=== PATIENT | female | born 1935 | race Caucasian/White ===

== ENCOUNTER 2020-03-20 10:30 | Emergency (ER) | payer MEDICARE, SELFPAY ==
--- NOTE | ~2020-03-20 | XR_ITS ---
EXAMINATION: [id number] EXAM DATE: 03/20/2020 11:31 INDICATION: Initial encounter following injury, with pain of the right ribs. TECHNIQUE: Frontal projection of the upper right ribs, frontal projection of the lower right ribs, ob lique projection of the right ribs, frontal chest x-ray(s) for interpretation. There is no prior terence dy for comparison. FINDINGS: Evidence of acute right 11th and 10th rib fractures posterolaterally. This finding has been indicated, marked on the examination for review, clinical correlation. There are cholecystectomy cli ps. There is no pneumothorax suspected. Cardiomediastinal silhouette is normal. There is no focal acu te air space disease. IMPRESSION: Acute right 10th, 11th rib fractures. Reviewed, dictated and finalized at location B. 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
--- NOTE | ~2020-03-20 | XR_ITS ---
EXAMINATION: XR hip RT min 2V EXAM DATE: 03/20/2020 11:31 INDICATION: Initial encounter following injury, with pain of the right hip. Fall. TECHNIQUE: Right hip frontal, crosstable lateral and 'frog-leg' projections for interpretation. There is no prior study for comparison. FINDINGS: Smooth right hip femoral head contour, no radiographic evidence of avascular necrosis. The re is mild to moderate primary osteoarthritis. There are no acute fractures or dislocations identifie d. There is no subcutaneous gas. Calcifications in the pelvis are believed to be phleboliths. The re are no radiopaque foreign bodies. IMPRESSION: Mild to moderate right hip osteoarthritis. Reviewed, dictated and finalized at location B. 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
[2020-03-20 10:48] VITALS: BP 145/54; PULSE 81; RESP 16; TEMP 36.7; O2SAT 98
--- NOTE | 2020-03-20 11:09 | ED.GENADULT ---
HPI - General Adult General Chief complaint: Back Pain/Injury Stated complaint: fell lower back pain Time Seen by Provider: 03/20/20 10:55 Source: patient and RN notes reviewed Mode of arrival: ambulatory Limitations: no limitations History of Present Illness HPI narrative: Patient presents today complaining of right posterior hip and right lateral and posterior rib pain. Patient became dizzy due to her vertigo 5 days ago and fell, striking her right ribs. Last night she tripped and fell, striking her hip. She has been ambulatory since both of these falls. Denies any head injuries or loss of consciousness. She currently rates her rib pain 9/10 and rates her hip pain 7/10. Reports history of right femur fracture with surgical repair. She takes meclizine for her vertigo. Her vertigo has not been worse than normal. Denies no recent illness. Patient takes tramadol for chronic pain. MD complaint: Right rib and hip pain. Related Data Home Medications Medication Instructions Recorded Confirmed Calcium + Vitamin D See Rx Instructions .ROUTE .COMPLEX 03/20/20 03/20/20 alprazolam 0.25 mg PO TID PRN 03/20/20 03/20/20 benzonatate 200 mg PO BID 03/20/20 03/20/20 biotin 5,000 mcg SUBLINGUAL DAILY 03/20/20 03/20/20 bupropion HCl [Wellbutrin XL] 150 mg PO QAM 03/20/20 03/20/20 diphenoxylate-atropine [Lomotil] 1 tablet PO TID PRN 03/20/20 03/20/20 duloxetine 60 mg PO DAILY 03/20/20 03/20/20 famotidine 20 mg PO BID 03/20/20 03/20/20 levothyroxine 88 mcg PO DAILY 03/20/20 03/20/20 timolol 1 drp OPHTHALMIC (EYE) BID 03/20/20 03/20/20 tramadol 50 mg PO Q6H PRN 03/20/20 03/20/20 vitamins A,C,P-gmwc-aglwcz 1 cap PO BID 03/20/20 03/20/20 [PreserVision AREDS] Allergies Allergy/AdvReac Type Severity Reaction Status Date / Time diazepam Allergy Verified 02/27/12 19:36 egg Allergy Verified 02/27/12 19:36 indomethacin Allergy Verified 02/27/12 19:36 iodine Allergy Verified 02/27/12 19:36 milk Allergy Verified 02/27/12 19:36 tetracycline Allergy Verified 02/27/12 19:36 CEFTRIAXONE SODIUM Allergy Uncoded 02/27/12 19:36 INDOMETHACIN SODIUM Allergy Uncoded 02/27/12 19:36 TRIHYDRATE PROPOXYPHENE HCL Allergy Uncoded 02/27/12 19:36 SULFUR Allergy topical Uncoded 02/27/12 19:36 TAPE Allergy Uncoded 02/27/12 19:36 Review of Systems Review of Systems: Narrative: CONSTITUTIONAL: Denies body aches, fever, chills, or sweats. EYES: Denies visual changes, redness, or discharge. ENT: Denies rhinorrhea, congestion, sore throat, or otalgia. CARDIOVASCULAR: Denies chest pain, palpitations, or edema. RESPIRATORY: Denies cough or dyspnea. GASTROINTESTINAL: Denies abdominal pain, nausea, vomiting, or diarrhea. GENITOURINARY: Denies dysuria or hematuria. SKIN: Denies rash, itching, or wounds. MUSCULOSKELETAL: Denies back pain, or myalgia. + Right rib and hip pain NEUROLOGIC: Denies headache, numbness, tingling, or weakness. PSYCH: Denies depression or anxiety. [facility] Past Medical History Medical History (Updated 03/20/20 @ 11:54 by Sylvia Wilkes, [facility], ) Femur fracture, right GERD (gastroesophageal reflux disease) Glaucoma Hypothyroidism Vertigo Surgical History Surgical History (Updated 03/20/20 @ 11:16 by Sylvia Wilkes, [facility], ) History of appendectomy History of cholecystectomy Comments At time of signature, I have reviewed and agree with nursing past medical, surgical, social and family history unless otherwise noted. Please see nursing chart for further information. There is no relevant family history pertinent to the presenting complaint Exam Narrative: Exam Narrative: GENERAL: Well-appearing, well-nourished, and in mild to moderate pain distress with movement. HEAD: Normocephalic, atraumatic. EYES: EOMI. No redness or drainage. Conjunctivae normal. ENT: Mucous membranes pink and moist. NECK: Normal AROM. Supple. No lymphadenopathy. CHEST: No respiratory distress. Clear to auscultation. Tendern
== END 2020-03-20 12:10 | disposition home or self-care (01) ==
PROVIDERS: Emergency Provider Nurse Practitioner; PCP Internal Medicine
DX: S22.41XA Multiple fractures of ribs, right side, initial encounter for closed fracture (principal); W19.XXXA Unspecified fall, initial encounter; S70.01XA Contusion of right hip, initial encounter; W01.0XXA Fall on same level from slipping, tripping and stumbling without subsequent striking against object, initial encounter; K21.9 Gastro-esophageal reflux disease without esophagitis; H40.9 Unspecified glaucoma; E03.9 Hypothyroidism, unspecified
CPT/HCPCS: 71101; 73502; 99204; G0463

== ENCOUNTER 2020-11-12 16:40 | Emergency (ER) | payer MEDICARE, SELFPAY ==
--- NOTE | ~2020-11-12 | XR_ITS ---
EXAMINATION: XR tibia fibula LT 2V DATE: 11/12/2020 17:47 INDICATION: Left lower leg swelling. TECHNIQUE: 2 views of left tibia and fibula were obtained. COMPARISON: None. FINDINGS: Bone alignment is normal. No acute fracture. There is mild left knee osteoarthritis. There is heterotopic ossification of distal to lateral malleolus, likely from old injury. IMPRESSION: 1. Mild left knee osteoarthritis. Reviewed, dictated and finalized at location A.
--- NOTE | ~2020-11-12 | XR_ITS ---
EXAMINATION: XR foot LT min 3V DATE: 11/12/2020 17:47 INDICATION: Left foot swelling. TECHNIQUE: 4 views of left foot were obtained. COMPARISON: None. FINDINGS: There is mild hallux valgus. There is mild osteoarthritis of first metatarsophalangeal join t and some the interphalangeal joints and midfoot joints. There are enthesophytes at the posterior an d plantar aspects of calcaneal tuberosity. IMPRESSION: 1. Mild polyarticular osteoarthritis. Reviewed, dictated and finalized at location A.
[2020-11-12 17:05] VITALS: BP 151/63; PULSE 77; RESP 20; TEMP 36.5; O2SAT 97
--- NOTE | 2020-11-12 17:26 | ED.GENADULT ---
HPI - General Adult General Chief complaint: Extremity Injury, Lower Stated complaint: swollen legs Time Seen by Provider: 11/12/20 17:26 Source: patient Mode of arrival: ambulatory Limitations: no limitations History of Present Illness HPI narrative: 85-year-old female patient presents to the [facility] with complaints of left lower extremity swelling and pain. Patient states this has been going on for about anywhere from 3 to 5 days. Patient states that it feels very tight and it feels like rubber bands around her foot and her leg. Patient states she has had a couple falls last couple weeks but denies getting checked out by healthcare provider or getting any x-rays. Patient states that her left foot feels numb. Denies taking thing for pain. Related Data Home Medications Medication Instructions Recorded Confirmed Calcium + Vitamin D See Rx Instructions .ROUTE .COMPLEX 03/20/20 03/20/20 alprazolam 0.25 mg PO TID PRN 03/20/20 03/20/20 benzonatate 200 mg PO BID 03/20/20 03/20/20 biotin 5,000 mcg SUBLINGUAL DAILY 03/20/20 03/20/20 bupropion HCl [Wellbutrin XL] 150 mg PO QAM 03/20/20 03/20/20 diphenoxylate-atropine [Lomotil] 1 tablet PO TID PRN 03/20/20 03/20/20 duloxetine 60 mg PO DAILY 03/20/20 03/20/20 famotidine 20 mg PO BID 03/20/20 03/20/20 levothyroxine 88 mcg PO DAILY 03/20/20 03/20/20 timolol 1 drp OPHTHALMIC (EYE) BID 03/20/20 03/20/20 tramadol 50 mg PO Q6H PRN 03/20/20 03/20/20 vitamins A,C,P-whty-norgim 1 cap PO BID 03/20/20 03/20/20 [PreserVision AREDS] Allergies Allergy/AdvReac Type Severity Reaction Status Date / Time diazepam Allergy Verified 02/27/12 19:36 egg Allergy Verified 02/27/12 19:36 indomethacin Allergy Verified 02/27/12 19:36 iodine Allergy Verified 02/27/12 19:36 milk Allergy Verified 02/27/12 19:36 tetracycline Allergy Verified 02/27/12 19:36 CEFTRIAXONE SODIUM Allergy Uncoded 02/27/12 19:36 INDOMETHACIN SODIUM Allergy Uncoded 02/27/12 19:36 TRIHYDRATE PROPOXYPHENE HCL Allergy Uncoded 02/27/12 19:36 SULFUR Allergy topical Uncoded 02/27/12 19:36 TAPE Allergy Uncoded 02/27/12 19:36 Review of Systems Review of Systems: Narrative: CONSTITUTIONAL: Denies fever, chills, or sweats. EYES: Denies visual changes, redness, or discharge. ENT: Denies rhinorrhea, congestion, sore throat, or otalgia. CARDIOVASCULAR: Denies chest pain, palpitations, or edema. RESPIRATORY: Denies cough or dyspnea. GASTROINTESTINAL: Denies abdominal pain, nausea, vomiting, or diarrhea. GENITOURINARY: Denies dysuria or hematuria. SKIN: Denies rash or itching. MUSCULOSKELETAL: Denies back pain, joint pain, or myalgia. Positive left foot and left lower extremity pain and swelling NEUROLOGIC: Denies headache, numbness, or weakness. PSYCHIATRIC: Denies anxiety or depression. [facility] Past Medical History Medical History Femur fracture, right GERD (gastroesophageal reflux disease) Glaucoma Hypothyroidism Vertigo Surgical History Surgical History History of appendectomy History of cholecystectomy Comments At the time of my signature I agree with nursing past medical history, surgical, social, and family history. There is no relevant family history pertinent to the presenting complaint. Exam Narrative: Exam Narrative: GENERAL: Well-appearing, well-nourished, and in no acute distress. HEAD: Normocephalic, atraumatic. EYES: PERRLA and EOMI. ENT: Nares clear, no rhinorrhea or epistaxis. Mucous membranes moist. NECK: Supple. No lymphadenopathy CHEST: Clear to auscultation. No respiratory distress. HEART: Regular rate and rhythm. No murmur heard. Normal peripheral pulses. ABDOMEN: Soft, nontender, nondistended, normal active bowel sounds. EXTREMITIES: Patient able to bear weight and ambulate. No surface trauma, ecchymosis, erythema, lesions, ulcers or break in skin integrity. The L foot is wit
--- NOTE | 2020-11-12 18:01 | PC.NURSE ---
pt up to xray for leg. became pale and nauseated with dry heaves. pt now admits to multi falls last 2 weeks and weakness and dizzyness. taken to room one and 12 lead done. pt denies CP SOB. Pt states she has been confused lately.
--- NOTE | 2020-11-12 18:08 | ECG_ITS ---
Measurements Intervals [place] Rate: 94 P: 71 AL: 207 QRS: 1 QRSD: 134 T: 125 QT: 376 QTc: 471 Interpretive Statements SINUS RHYTHM BORDERLINE AV CONDUCTION DELAY LEFT BUNDLE BRANCH BLOCK BASELINE ARTIFACT- I, III, AVL ABNORMAL ECG Electronically Signed On 11-13-2020 11:31:05 CDT by Juan Chamberlain D.O.
== END 2020-11-12 18:19 | disposition short-term general hospital (02) ==
PROVIDERS: Emergency Provider Nurse Practitioner Family
DX: R42 Dizziness and giddiness (principal); M79.89 Other specified soft tissue disorders; K21.9 Gastro-esophageal reflux disease without esophagitis; H40.9 Unspecified glaucoma; E03.9 Hypothyroidism, unspecified
CPT/HCPCS: 73590; 73630; 93005; 99215; G0463

== ENCOUNTER 2021-05-21 11:00 | Emergency (ER) | payer MEDICARE, SELFPAY ==
--- NOTE | ~2021-05-21 | XR_ITS ---
EXAMINATION: XR foot RT min 3V DATE: 05/21/2021 12:06 INDICATION: Right foot injury. TECHNIQUE: 4 views of right foot were obtained. COMPARISON: None. FINDINGS: There is moderate hallux valgus. No fracture. There is mild osteoarthritis of first metatar sophalangeal joint and some of the interphalangeal joints. There are enthesophytes at the posterior a nd plantar aspects of calcaneal tuberosity. IMPRESSION: 1. Mild polyarticular osteoarthritis. 2. Moderate hallux valgus. Reviewed, dictated and finalized at location A. 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
[2021-05-21 11:10] VITALS: BP 136/56; PULSE 74; RESP 20; TEMP 36.6; O2SAT 99
--- NOTE | 2021-05-21 11:47 | ED.LOWEXIN ---
HPI - Extremity Injury (Lower) General Chief Complaint: Extremity Injury, Lower Stated Complaint: right calf knot Time Seen by Provider: 05/21/21 11:47 Source: patient and family Mode of arrival: ambulatory Limitations: no limitations History of Present Illness HPI Narrative: patient presents with right foot pain after falling at home. patient states she got up in the night and tripped over th dop pad causing her to injure her right foot. patient denies any other pain or discomfort. no calf pain. slight bruising to lateral side of right foot. no deformity. MD complaint: foot injury and fall Injury: Right: foot Type of Injury: blunt Severity: mild Severity scale (1-10): 1 Related Data Home Medications Medication Instructions Recorded Confirmed Calcium + Vitamin D See Rx Instructions .ROUTE .COMPLEX 03/20/20 05/21/21 alprazolam 0.25 mg PO TID PRN 03/20/20 05/21/21 biotin 5,000 mcg SUBLINGUAL DAILY 03/20/20 05/21/21 bupropion HCl [Wellbutrin XL] 150 mg PO QAM 03/20/20 05/21/21 diphenoxylate-atropine [Lomotil] 1 tablet PO TID PRN 03/20/20 05/21/21 duloxetine 60 mg PO DAILY 03/20/20 05/21/21 famotidine 20 mg PO BID 03/20/20 05/21/21 levothyroxine 88 mcg PO DAILY 03/20/20 05/21/21 timolol 1 drp OPHTHALMIC (EYE) BID 03/20/20 05/21/21 tramadol 50 mg PO Q6H PRN 03/20/20 05/21/21 vitamins A,C,N-qtec-xgnktg 1 cap PO BID 03/20/20 05/21/21 [PreserVision AREDS] Allergies Allergy/AdvReac Type Severity Reaction Status Date / Time diazepam Allergy Unknown Verified 05/21/21 11:32 egg Allergy Unknown Verified 05/21/21 11:32 indomethacin Allergy Unknown Verified 05/21/21 11:32 iodine Allergy Unknown Verified 05/21/21 11:32 milk Allergy Unknown Verified 05/21/21 11:32 tetracycline Allergy Unknown Verified 05/21/21 11:32 CEFTRIAXONE SODIUM Allergy Unknown Uncoded 05/21/21 11:32 INDOMETHACIN SODIUM Allergy Unknown Uncoded 01/03/22 11:32 TRIHYDRATE PROPOXYPHENE HCL Allergy Unknown Uncoded 05/21/21 11:32 SULFUR Allergy topical Uncoded 02/27/12 19:36 TAPE Allergy Unknown Uncoded 05/21/21 11:32 Review of Systems Review of Systems: CONSTITUTIONAL: Denies fever, chills, or sweats. EYES: Denies visual changes, redness, or discharge. ENT: Denies rhinorrhea, congestion, sore throat, or otalgia. CARDIOVASCULAR: Denies chest pain, palpitations, or edema. RESPIRATORY: Denies cough or dyspnea. GASTROINTESTINAL: Denies abdominal pain, nausea, vomiting, or diarrhea. GENITOURINARY: Denies dysuria or hematuria. SKIN: Denies rash or itching. MUSCULOSKELETAL: Denies back pain, joint pain, or myalgia. NEUROLOGIC: Denies headache, numbness, or weakness. PSYCHIATRIC: Denies anxiety or depression. [facility] Past Medical History Medical History Femur fracture, right GERD (gastroesophageal reflux disease) Glaucoma Hypothyroidism Vertigo Surgical History Surgical History History of appendectomy History of cholecystectomy Comments At time of signature, agree with nursing past medical, surgical, social and family history. There is no relevant family history pertinent to the presenting complaint Exam Narrative: GENERAL: Well-appearing, well-nourished, and in no acute distress. HEAD: Normocephalic, atraumatic. EYES: PERRLA and EOMI. ENT: Nares clear, no rhinorrhea or epistaxis. Mucous membranes moist. NECK: Supple. CHEST: Clear to auscultation. No respiratory distress. HEART: Regular rate and rhythm. No murmur heard. Normal peripheral pulses. ABDOMEN: Soft, nontender, nondistended, normal active bowel sounds. EXTREMITIES: Normal range of motion. No edema. ANKLE EXAM lower extremity: RIGHT HIP EXAM - SKIN INTACT. NO BRUISING, REDNESS OR SWELLING. NO INGUINAL MASSES OR LYMPHADENOPATHY. GENERALIZED FEMUR AND HIP TENDERNESS. PATIENT HOLDING HIP IN EXTERNAL ROTATION WITH SLIGHT FLEXION OF KNEE. NO BUTTOCK OR SI JOINT TENDERNESS. ROM L
== END 2021-05-21 12:27 | disposition home or self-care (01) ==
PROVIDERS: Emergency Provider Nurse Practitioner Family; PCP Internal Medicine
DX: S90.31XA Contusion of right foot, initial encounter (principal); W01.0XXA Fall on same level from slipping, tripping and stumbling without subsequent striking against object, initial encounter; K21.9 Gastro-esophageal reflux disease without esophagitis; H40.9 Unspecified glaucoma; E03.9 Hypothyroidism, unspecified
CPT/HCPCS: 73630; 99213; G0463

== ENCOUNTER 2021-06-06 14:51 | Emergency (ER) | payer MEDICARE, SELFPAY ==
[2021-06-06 15:03] VITALS: BP 118/50; PULSE 84; RESP 18; TEMP 36.4; O2SAT 100
--- NOTE | 2021-06-06 15:30 | ED.LOWEXIN ---
HPI - Extremity Injury (Lower) General Chief Complaint: Extremity Injury, Lower Stated Complaint: pain in back of left leg Time Seen by Provider: 06/06/21 15:30 Source: patient and RN notes reviewed Mode of arrival: ambulatory Limitations: no limitations History of Present Illness HPI Narrative: 86-year-old female presents with concern for left lower leg swelling. Reports symptoms for the past 3 days. Does not recall any specific injury. Family reports that she falls frequently. She went to the emergency room last night but left before being seen because of a long wait. Reports pain and tenderness to the posterior calf, denies redness or warmth MD complaint: other Related Data Home Medications Medication Instructions Recorded Confirmed Calcium + Vitamin D See Rx Instructions .ROUTE .COMPLEX 03/20/20 05/21/21 alprazolam 0.25 mg PO TID PRN 03/20/20 05/21/21 biotin 5,000 mcg SUBLINGUAL DAILY 03/20/20 05/21/21 bupropion HCl [Wellbutrin XL] 150 mg PO QAM 03/20/20 05/21/21 diphenoxylate-atropine [Lomotil] 1 tablet PO TID PRN 03/20/20 05/21/21 duloxetine 60 mg PO DAILY 03/20/20 05/21/21 famotidine 20 mg PO BID 03/20/20 05/21/21 levothyroxine 88 mcg PO DAILY 03/20/20 05/21/21 timolol 1 drp OPHTHALMIC (EYE) BID 03/20/20 05/21/21 tramadol 50 mg PO Q6H PRN 03/20/20 05/21/21 vitamins A,C,I-jgdj-gxxudi 1 cap PO BID 03/20/20 05/21/21 [PreserVision AREDS] oxybutynin chloride 06/06/21 06/06/21 Allergies Allergy/AdvReac Type Severity Reaction Status Date / Time diazepam Allergy Unknown Verified 05/21/21 11:32 egg Allergy Unknown Verified 05/21/21 11:32 indomethacin Allergy Unknown Verified 05/21/21 11:32 iodine Allergy Unknown Verified 05/21/21 11:32 milk Allergy Unknown Verified 05/21/21 11:32 tetracycline Allergy Unknown Verified 05/21/21 11:32 Tetracyclines Allergy Unknown Verified 06/06/21 15:43 CEFTRIAXONE SODIUM Allergy Unknown Uncoded 05/21/21 11:32 INDOMETHACIN SODIUM Allergy Unknown Uncoded 05/21/21 11:32 TRIHYDRATE PROPOXYPHENE HCL Allergy Unknown Uncoded 05/21/21 11:32 SULFUR Allergy topical Uncoded 02/27/12 19:36 TAPE Allergy Unknown Uncoded 05/21/21 11:32 Review of Systems Review of Systems: CONSTITUTIONAL: Denies malaise, chills, sweats, or fever. SKIN: Denies rash or itching, open skin, laceration, abrasion, redness, warmth MUSCULOSKELETAL: Reports tenderness and swelling to the left lower leg NEUROLOGIC: Denies numbness, weakness All systems reviewed & are unremarkable except as noted in HPI and below PMFSH Past Medical History Medical History Femur fracture, right GERD (gastroesophageal reflux disease) Glaucoma Hypothyroidism Vertigo Surgical History Surgical History History of appendectomy History of cholecystectomy Comments At time of signature, agree with nursing past medical, surgical, social and family history. There is no relevant family history pertinent to the presenting complaint Exam Narrative: GENERAL: Well-appearing, well-nourished, and in no acute distress. HEAD: Normocephalic, atraumatic. EYES: PERRLA, sclera clear ENT: Nares clear. Mucous membranes moist. NECK: Supple. CHEST: No respiratory distress. Speaks in full sentences. HEART: Regular rate and rhythm. Normal peripheral pulses. EXTREMITIES: Normal range of motion. Normal strength and sensation. Left lower leg edema, with posterior tenderness noted without redness or warmth SKIN: Warm, dry, no visible rash. NEURO: Alert and oriented x3. PSYCH: Normal mood and affect Course Course Emergency Course: Called to facilitate an appointment with patient's primary care doctor, patient will be seen tomorrow morning Patient is aware of diagnosis, understands and agrees to treatment plan. Anticipatory guidance given. Patient agrees to follow-up as directed and is aware of reasons to seek care at the emergency dep
== END 2021-06-06 15:50 | disposition home or self-care (01) ==
PROVIDERS: Emergency Provider Nurse Practitioner; PCP Internal Medicine
DX: M79.89 Other specified soft tissue disorders (principal); K21.9 Gastro-esophageal reflux disease without esophagitis; H40.9 Unspecified glaucoma; E03.9 Hypothyroidism, unspecified
CPT/HCPCS: 99212; G0463

== ENCOUNTER 2022-02-18 10:33 | Emergency (ER) | payer MEDICARE, SELFPAY ==
--- NOTE | ~2022-02-18 | XR_ITS ---
EXAMINATION: XR knee RT min 4V DATE: 02/18/2022 11:40 INDICATION: 2 days of nontraumatic right knee pain and swelling TECHNIQUE: Anteroposterior, 2 oblique and crosstable lateral views of the right knee were obtained COMPARISON: None. FINDINGS: Lateral plate and screw fixation spanning an old healed distal metaphyseal fracture of the right femu r which has healed in near-anatomic alignment. No acute fracture identified. Tricompartmental osteoar thritis at the right knee, multiple moderate severity in the patellofemoral compartment and at least mild in the medial and lateral compartments although severity of joint space narrowing can be underes timated on nonweightbearing imaging. No joint effusion/layering lipohemarthrosis. Diffuse subcutaneou s edema about the visualized mid thigh through the mid calf. IMPRESSION: 1. Old healed internally fixed distal right femoral fracture. No right knee joint effusion or acute o sseous abnormality. 2. 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 3. Nonspecific diffuse subcutaneous edema throughout the visualized distal right thigh and proximal c lesvia. Reviewed, dictated and finalized at location A. IMPRESSION: 1. Old healed internally fixed distal right femoral fracture. No right knee margy nt effusion or acute osseous abnormality. 2. Tricompartmental osteoarthritis, mild to moderate in the patellofemoral comp artment. 3. Nonspecific diffuse subcutaneous edema throughout the visualized distal righ t thigh and proximal calf.
[2022-02-18 10:50] VITALS: BP 153/66; PULSE 90; RESP 20; TEMP 36.3; O2SAT 94
--- NOTE | 2022-02-18 10:59 | ED.SKABFB ---
HPI - Skin/Abscess/Foreign Bdy General Chief complaint: Skin/Abscess/Foreign Body Stated complaint: Skin Sore Time Seen by Provider: 02/18/22 11:06 Source: patient Mode of arrival: ambulatory Limitations: no limitations History of Present Illness HPI narrative: 87 y/o female presented for c/o left lower leg redness and swelling for 2 days, and also right knee pain and swelling. She endorses history of barndy to the right knee, and has been riding a bicycle for physical therapy over the past 2 weeks. She denies redness or bruising to the knee. She endorses redness and mild blistering to the left lower leg. She currently denies fatigue, chest pain, palpitations, shortness of breath, wheezing, nausea, vomiting urinary changes. Denies increase in salty food. Walks with walker. Taking Tramadol and Tylenol for pain. Sits in recliner often. Scheduled for right arm nerve surgery in 3 days. Related Data Home Medications Medication Instructions Recorded Confirmed bupropion HCl 150 mg 24 hr tablet, 150 mg PO QAM 03/20/20 02/18/22 extended release (Wellbutrin XL) duloxetine 60 mg capsule,delayed 60 mg PO DAILY 03/20/20 02/18/22 release sprinkle famotidine 20 mg tablet 20 mg PO BID 03/20/20 02/18/22 levothyroxine 88 mcg tablet 88 mcg PO DAILY 03/20/20 02/18/22 timolol 0.5 % eye drops 1 drp ophthalmic (eye) BID 03/20/20 02/18/22 tramadol 50 mg tablet 50 mg PO Q6H PRN Pain, Mild 03/20/20 02/18/22 oxybutynin chloride 5 mg tablet 5 mg PO DAILY 06/06/21 02/18/22 mirtazapine 15 mg tablet 15 mg PO DAILY 02/18/22 02/18/22 Allergies Allergy/AdvReac Type Severity Reaction Status Date / Time diazepam Allergy Unknown Verified 05/21/21 11:32 egg Allergy Unknown Verified 05/21/21 11:32 iodine Allergy Unknown Verified 05/21/21 11:32 milk Allergy Unknown Verified 05/21/21 11:32 tetracycline Allergy Unknown Verified 05/21/21 11:32 CEFTRIAXONE SODIUM Allergy Unknown Uncoded 05/21/21 11:32 INDOMETHACIN SODIUM Allergy Unknown Uncoded 05/21/21 11:32 TRIHYDRATE PROPOXYPHENE HCL Allergy Unknown Uncoded 05/21/21 11:32 SULFUR Allergy topical Uncoded 02/27/12 19:36 TAPE Allergy Unknown Uncoded 05/21/21 11:32 Review of Systems Review of Systems: CONSTITUTIONAL: Denies fatigue body aches, fever, chills EYES: Denies visual changes ENT: Denies rhinorrhea, congestion CARDIOVASCULAR: Denies chest pain, palpitations; reports LE edema. RESPIRATORY: Denies dyspnea. GASTROINTESTINAL: Denies abdominal pain SKIN: Reports left leg redness, swelling MUSCULOSKELETAL:. Reports right knee pain/swelling, right hand drop NEUROLOGIC: Denies headache, numbness, tingling, or weakness. All systems reviewed & are unremarkable except as noted in HPI and below PMFSH Past Medical History Medical History Femur fracture, right GERD (gastroesophageal reflux disease) Glaucoma Hypothyroidism Vertigo Surgical History Surgical History History of appendectomy History of cholecystectomy Comments At time of signature, I have reviewed and agree with nursing past medical, surgical, social and family history unless otherwise noted. Please see nursing chart for further information. There is no relevant family history pertinent to the presenting complaint Exam Narrative: GENERAL: Well-appearing, in no acute distress. CHEST: Lungs with crackles to bases. Speaks in full sentences. No respiratory distress. HEART: Regular rate and rhythm. Normal and equal peripheral pulses. EXTREMITIES: Left lower leg swelling 1+ skin is shiny and tight, tender with palpation, mild anterior erythema with approx 0.5cm skin abrasion to lateral lower leg; right ankle with trace swelling, tender with palpation, tight, no open areas; BLEs normal strength and sensation; right knee with moderate swelling medially, no redness; limited range of motion at knee. Pulse palpable and eq
== END 2022-02-18 12:08 | disposition home or self-care (01) ==
PROVIDERS: Emergency Provider Nurse Practitioner Family
DX: M25.561 Pain in right knee (principal); M25.461 Effusion, right knee; R22.42 Localized swelling, mass and lump, left lower limb; K21.9 Gastro-esophageal reflux disease without esophagitis; H10.9 Unspecified conjunctivitis; E03.9 Hypothyroidism, unspecified
CPT/HCPCS: 73564; 99213; G0463

== ENCOUNTER 2022-10-19 08:18 | Emergency (ER) | payer MEDICARE, MEDICAID, SELFPAY ==
[2022-10-19 08:25] VITALS: BP 143/78; PULSE 90; RESP 20; TEMP 37.1; O2SAT 90
--- NOTE | 2022-10-19 08:44 | ED.GIBLEED ---
HPI - GI Bleed General Chief complaint: GI Bleed Stated complaint: Change leg dressings/diarrhea Time Seen by Provider: 10/19/22 08:30 Source: patient Mode of arrival: ambulatory Limitations: no limitations History of Present Illness HPI Narrative: 87 y/o patient presented for evaluation of right lower leg wound, and also reports large amount of blood in stool today. Patient has been taking antibiotics for the right lower leg skin infection as prescribed by outside urgent care for about 3 days. States she has had abdominal cramping, nausea and diarrhea since taking antibiotics. She endorses 2 days ago she had an episode of blood in the stool, and again this morning at 0300 stating it was like being on a period. Endorses fatigue and slightly decreased appetite. She denies associated abdominal pain, dizziness, chest pain, shortness of breath or vomiting. 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 Related Data Home Medications Medication Instructions Recorded Confirmed bupropion HCl 150 mg 24 hr tablet, 150 mg PO QAM 03/20/20 10/19/22 extended release (Wellbutrin XL) duloxetine 60 mg capsule,delayed 60 mg PO DAILY 03/20/20 10/19/22 release sprinkle famotidine 20 mg tablet 20 mg PO BID 03/20/20 10/19/22 levothyroxine 88 mcg tablet 88 mcg PO DAILY 03/20/20 10/19/22 timolol 0.5 % eye drops 1 drp ophthalmic (eye) BID 03/20/20 10/19/22 tramadol 50 mg tablet 50 mg PO Q6H PRN Pain, Mild 03/20/20 10/19/22 oxybutynin chloride 5 mg tablet 5 mg PO DAILY 06/06/21 10/19/22 mirtazapine 15 mg tablet 15 mg PO DAILY 02/18/22 10/19/22 Allergies Allergy/AdvReac Type Severity Reaction Status Date / Time diazepam Allergy Unknown Verified 10/19/22 08:38 egg Allergy Unknown Verified 10/19/22 08:38 iodine Allergy Unknown Verified 10/19/22 08:38 milk Allergy Unknown Verified 10/19/22 08:38 tetracycline Allergy Unknown Verified 10/19/22 08:38 CEFTRIAXONE SODIUM Allergy Unknown Uncoded 05/21/21 11:32 INDOMETHACIN SODIUM Allergy Unknown Uncoded 05/21/21 11:32 TRIHYDRATE PROPOXYPHENE HCL Allergy Unknown Uncoded 05/21/21 11:32 SULFUR Allergy topical Uncoded 02/27/12 19:36 TAPE Allergy Unknown Uncoded 05/21/21 11:32 Review of Systems Review of Systems: CONSTITUTIONAL: Denies body aches, fever, chills, or sweats. EYES: Denies visual changes, redness, or discharge. ENT: Denies rhinorrhea, congestion, sore throat, or otalgia. CARDIOVASCULAR: Denies chest pain, palpitations, or edema. RESPIRATORY: Denies cough or dyspnea. GASTROINTESTINAL: Denies abdominal pain, vomiting, reports hematochezia, cramping, nausea, diarrhea. GENITOURINARY: Denies dysuria or hematuria. SKIN: Denies rash, itching, Reports RLL wound, Left forearm skin tear MUSCULOSKELETAL: Denies back pain, joint pain, or myalgia. NEUROLOGIC: Denies headache, numbness, tingling, or weakness. All systems reviewed & are unremarkable except as noted in HPI and below PMFSH Past Medical History Medical History Femur fracture, right GERD (gastroesophageal reflux disease) Glaucoma Hypothyroidism Vertigo Surgical History Surgical History History of appendectomy History of cholecystectomy Comments At time of signature, I have reviewed and agree with nursing past medical, surgical, social and family history unless otherwise noted. Please see nursing chart for further information. There is no relevant family history pertinent to the presenting complaint Exam Narrative: GENERAL: Well-appearing, and in no acute distress. HEAD: Normocephalic, atraumatic. EYES: EOMI. No redness or drainage. Conjunctivae normal. ENT: Mucous membranes pink and moist. No rhinorrhea. CHEST: No respiratory distress. Clear to auscultation. HEART: Regular rate and rhythm. murmur appreciated. Normal peripheral pulses. ABDOMEN: Soft, nontender, nondistende
== END 2022-10-19 09:22 | disposition short-term general hospital (02) ==
PROVIDERS: Emergency Provider Nurse Practitioner Family; PCP Internal Medicine
DX: K92.1 Melena (principal); K21.9 Gastro-esophageal reflux disease without esophagitis; H10.9 Unspecified conjunctivitis; E03.9 Hypothyroidism, unspecified
CPT/HCPCS: 99212; G0463

== ENCOUNTER 2023-03-18 11:56 | Emergency (ER) | payer MEDICARE, MEDICAID, SELFPAY ==
--- NOTE | ~2023-03-18 | XR_ITS ---
XR hand RT min 3V DATE: 03/18/2023 12:33 INDICATION: Fell and twisted right hand on door handle TECHNIQUE: 4 views of right hand COMPARISON: None FINDINGS: Diffuse osteopenia. There is degenerative change at the triscaphe and first carpometacarpal and multiple metacarpophalang eal and interphalangeal joints consistent with osteoarthritis. No erosive change is noted. There is an extra-articular fracture at the junction of the base and shaft of the first metacarpal vicki ne with mild anterolateral displacement. No other fracture or dislocation, periosteal reaction or bone destruction is detected otherwise. IMPRESSION: First metacarpal fracture Osteopenia Polyarticular osteoarthritis Reviewed, dictated and finalized at location L.
[2023-03-18 12:10] VITALS: BP 121/102; PULSE 69; RESP 20; TEMP 36.6; O2SAT 95
--- NOTE | 2023-03-18 12:11 | ED.UPPEXIN ---
HPI - Extremity Injury (Upper) General Chief Complaint: Extremity Injury, Upper Stated Complaint: right hand injury from fall Source: patient and RN notes reviewed History of Present Illness HPI narrative: 88 yo F presents to urgent care with complaints of right hand pain, bruising, and swelling. Pt states last night, she was letting her dog out and she had her right hand on the door handle while opening the door. Pt states she lost her balance and fell with her right hand still in the handle. Pt reports associated numbness and tingling to her right fingers. Pt states she landed on her left side onto carpet and denies any other injury. Pt states she crawled on the floor to the phone and called her children who came over immediately and helped her up. Pt denies any head injury, LOC, neck pain, back pain, chest pain, SOB, abdominal pain, vomiting, or other complaints. Pt takes Tylenol ES at home. Related Data Home Medications Medication Instructions Recorded Confirmed bupropion HCl 150 mg 24 hr tablet, 150 mg PO QAM 03/20/20 03/18/23 extended release (Wellbutrin XL) duloxetine 60 mg capsule,delayed 60 mg PO DAILY 03/20/20 03/18/23 release sprinkle famotidine 20 mg tablet 20 mg PO BID 03/20/20 03/18/23 levothyroxine 88 mcg tablet 88 mcg PO DAILY 03/20/20 03/18/23 timolol 0.5 % eye drops 1 drp ophthalmic (eye) BID 03/20/20 03/18/23 tramadol 50 mg tablet 50 mg PO Q6H PRN Pain, Mild 03/20/20 03/18/23 oxybutynin chloride 5 mg tablet 5 mg PO DAILY 06/06/21 03/18/23 mirtazapine 15 mg tablet 15 mg PO DAILY 02/18/22 03/18/23 mirabegron 25 mg tablet,extended 25 mg PO DIRECTED 03/18/23 03/18/23 release 24 hr (Myrbetriq) Allergies Allergy/AdvReac Type Severity Reaction Status Date / Time diazepam Allergy Unknown Verified 03/18/23 12:17 egg Allergy Unknown Verified 03/18/23 12:17 iodine Allergy Unknown Verified 03/18/23 12:17 milk Allergy Unknown Verified 03/18/23 12:17 tetracycline Allergy Unknown Verified 03/18/23 12:17 CEFTRIAXONE SODIUM Allergy Unknown Uncoded 05/21/21 11:32 INDOMETHACIN SODIUM Allergy Unknown Uncoded 05/21/21 11:32 TRIHYDRATE PROPOXYPHENE HCL Allergy Unknown Uncoded 05/21/21 11:32 SULFUR Allergy topical Uncoded 02/27/12 19:36 TAPE Allergy Unknown Uncoded 05/21/21 11:32 Review of Systems Review of Systems: CONSTITUTIONAL: Denies fever, chills, or sweats. EYES: Denies visual changes, redness, or discharge. ENT: Denies otalgia and sore throat CARDIOVASCULAR: Denies chest pain, palpitations, or edema. RESPIRATORY: Denies cough or dyspnea. GASTROINTESTINAL: Denies abdominal pain, nausea, vomiting, or diarrhea. GENITOURINARY: Denies dysuria or hematuria. SKIN: Denies rash or itching. MUSCULOSKELETAL: Right hand pain NEUROLOGIC: Denies headache, numbness, or weakness. Pertinent positives per HPI. [facility] Past Medical History Medical History Femur fracture, right GERD (gastroesophageal reflux disease) Glaucoma Hypothyroidism Vertigo Surgical History Surgical History History of appendectomy History of cholecystectomy Comments At the time of my signature, I reviewed and agree with the nursing past medical, surgical, social, and family history. There is no relevant family history pertinent to the patient complaint. Exam Narrative: GENERAL: This is a well-nourished, well-developed patient, in no apparent distress. HEAD: normocephalic, atraumatic. EYES: Sclera clear/white. Vision is grossly intact. EARS: External ears normal, auditory canals clear and without drainage. Hearing grossly intact. NOSE: External nose normal with no obvious nasal discharge, nares without redness, no rhinorrhea. THROAT: Mucous membranes moist, posterior pharynx clear. NECK: Neck supple, non-tender without lymphadenopathy, masses or thyromegaly. CARDIOVASCULAR: Regular rate and rhythm with
[2023-03-18 12:20] VITALS: BP 121/102; PULSE 69; RESP 20; TEMP 36.6; O2SAT 95
== END 2023-03-18 13:10 | disposition home or self-care (01) ==
PROVIDERS: Emergency Provider Nurse Practitioner Family; PCP Internal Medicine
DX: S62.231A Other displaced fracture of base of first metacarpal bone, right hand, initial encounter for closed fracture (principal); W19.XXXA Unspecified fall, initial encounter; K21.9 Gastro-esophageal reflux disease without esophagitis; H40.9 Unspecified glaucoma; E03.9 Hypothyroidism, unspecified
CPT/HCPCS: 29125; 73130; 99214; A4565; G0463

== ENCOUNTER 2023-09-25 17:34 | Emergency (ER) | payer MEDICARE, MEDICAID, SELFPAY ==
--- NOTE | ~2023-09-25 | XR_ITS ---
EXAMINATION: XR humerus RT DATE: 09/25/2023 18:17 INDICATION: Right humeral pain post fall TECHNIQUE: Internal and externally rotated views of the right humerus were obtained. COMPARISON: None. FINDINGS: Bone alignment is normal. No acute fracture. Old healed fracture at the anterior right 10th rib. Mild polyarticular osteoarthritis at the right elbow, glenohumeral and acromioclavicular joints. Soft tis sues are unremarkable. Right lung is clear. IMPRESSION: 1. 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 No acute osseous abnormality. Reviewed, dictated and finalized at location A. IMPRESSION: 1. 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 No acute osseous abnorm ality.
--- NOTE | 2023-09-25 17:41 | ED.SKABFB ---
HPI - Skin/Abscess/Foreign Bdy General Chief complaint: Fall Stated complaint: Right forearm skin tear Time Seen by Provider: 09/25/23 17:35 Source: patient Mode of arrival: ambulatory Limitations: no limitations History of Present Illness HPI narrative: Patient is an 88-year-old female who presents with right upper arm skin tear and pain after fall on Friday. Patient was seen by aviation maintenance technician and dressing applied. Patient still has full range of motion in arm. Patient has been applying bacitracin ointment. Patient declines hitting head on fall. Tetanus shot is up-to-date Related Data Home Medications Medication Instructions Recorded Confirmed bupropion HCl 150 mg 24 hr tablet, 150 mg PO QAM 03/20/20 09/25/23 extended release (Wellbutrin XL) duloxetine 60 mg capsule,delayed 60 mg PO DAILY 03/20/20 09/25/23 release sprinkle famotidine 20 mg tablet 20 mg PO BID 03/20/20 09/25/23 levothyroxine 88 mcg tablet 88 mcg PO DAILY 03/20/20 09/25/23 timolol 0.5 % eye drops 1 drp ophthalmic (eye) BID 03/20/20 03/18/23 oxybutynin chloride 5 mg tablet 5 mg PO DAILY 06/06/21 03/18/23 mirtazapine 15 mg tablet 15 mg PO DAILY 02/18/22 09/25/23 mirabegron 25 mg tablet,extended 25 mg PO DIRECTED 03/18/23 09/25/23 release 24 hr (Myrbetriq) carvedilol 6.25 mg tablet 6.25 mg PO BID 09/25/23 09/25/23 furosemide 20 mg tablet 20 mg PO DAILY 09/25/23 09/25/23 losartan 25 mg tablet 25 mg PO DAILY 09/25/23 09/25/23 Allergies Allergy/AdvReac Type Severity Reaction Status Date / Time diazepam Allergy Unknown Verified 09/25/23 17:40 egg Allergy Unknown Verified 09/25/23 17:40 iodine Allergy Unknown Verified 09/25/23 17:40 milk Allergy Unknown Verified 09/25/23 17:40 Sulfa (Sulfonamide Allergy Rash Verified 09/25/23 17:41 Antibiotics) tetracycline Allergy Unknown Verified 09/25/23 17:40 CEFTRIAXONE SODIUM Allergy Unknown Uncoded 05/21/21 11:32 INDOMETHACIN SODIUM Allergy Unknown Uncoded 05/21/21 11:32 TRIHYDRATE PROPOXYPHENE HCL Allergy Unknown Uncoded 05/21/21 11:32 TAPE Allergy Unknown Uncoded 05/21/21 11:32 Review of Systems Review of Systems: All systems reviewed & are unremarkable except as noted in HPI and below Constitutional: Constitutional: Denies body ache(s), Denies chills, Denies fatigue, Denies fever(s), Denies headache(s), Denies malaise and Denies weakness Eyes: Eyes: Denies blurry vision, Denies irritation and Denies loss of vision ENT: Denies otalgia, Denies headache(s), Denies nasal discharge, Denies sinus pain and Denies sore throat Cardiovascular: Cardiovascular: Denies chest pain, Denies irregular heart rhythm and Denies dyspnea Respiratory: Respiratory: Denies dyspnea Gastrointestinal: Gastrointestinal: Denies abdominal pain, Denies melena, Denies hematochezia, Denies diarrhea, Denies nausea and Denies vomiting Musculoskeletal: Musculoskeletal: Denies back pain, Denies myalgias and Denies arthralgias Integumentary/Breasts: Skin/Breast: Denies pruritus, Denies rash and Reports wounds Neurologic: Denies headache(s), Denies loss of vision and Denies weakness Psychiatric: Psychiatric: Reports no additional psychiatric complaints Endocrine: Endocrine: Denies fatigue PMFSH Past Medical History Medical History Chronic pain Femur fracture, right GERD (gastroesophageal reflux disease) Glaucoma Hypothyroidism Vertigo Surgical History Surgical History History of appendectomy History of cholecystectomy Comments At time of signature, agree with nursing past medical, surgical, social and family history. There is no relevant family history pertinent to the presenting complaint. Exam Const: General: cooperative, healthy appearing, comfortable, no acute distress and well nourished Nutritional Appearance: well nourished Orientation/consciousness: patient oriented x3 Limitations: no li
[2023-09-25 17:44] VITALS: BP 128/45; PULSE 80; RESP 20; TEMP 36.4; O2SAT 95
[2023-09-25 18:06] VITALS: BP 128/45; PULSE 80; RESP 20; TEMP 36.4; O2SAT 95
== END 2023-09-25 18:40 | disposition home or self-care (01) ==
PROVIDERS: Emergency Provider Nurse Practitioner Family; PCP Internal Medicine
DX: S41.111A Laceration without foreign body of right upper arm, initial encounter (principal); M79.621 Pain in right upper arm; W19.XXXA Unspecified fall, initial encounter; K21.9 Gastro-esophageal reflux disease without esophagitis; E03.9 Hypothyroidism, unspecified
CPT/HCPCS: 73060; 99213; G0463

== ENCOUNTER 2024-01-21 14:23 | Outpatient (CLI) | payer MEDICARE, SELFPAY ==
--- NOTE | ~2024-01-21 | XR_ITS ---
EXAMINATION: XR ankle RT min 3V DATE: 01/21/2024 15:02 INDICATION: Right ankle fracture and pain. TECHNIQUE: 4 views of right ankle were obtained. COMPARISON: Right foot radiographs 05/21/2021 FINDINGS: There is a transverse fracture of medial malleolus in near-anatomic alignment with internal fixation with 2 screws. There is a fracture of posterior malleolus with 1 mm step-off at the articul ar surface with fixation with 1 screw. There is plate and screw fixation of distal fibula. 3 syndesmo tic screws are noted. There is an intramedullary brandy in the tibia. Joint spaces are normal. There are enthesophytes at the posterior and plantar aspects of calcaneal tuberosity. Ankle soft tissue swelli ng is noted. IMPRESSION: 1. Ankle fractures status post open reduction internal fixation. Reviewed, dictated and finalized at location A.
== END 2024-01-21 14:24 | disposition home or self-care (01) ==
LOC: CHSLAB 14:28 → CHSIMG 14:47
PROVIDERS: PCP Family Medicine; Visit Provider Family Medicine
DX: S82.841D Displaced bimalleolar fracture of right lower leg, subsequent encounter for closed fracture with routine healing (principal); Z98.890 Other specified postprocedural states
CPT/HCPCS: 73610

== ENCOUNTER 2024-07-03 10:04 | Outpatient (CLI) | payer MEDICARE, SELFPAY ==
--- NOTE | ~2024-07-03 | XR_ITS ---
HISTORY: Fall, Lt. knee pain COMPARISON: None TECHNIQUE: 3 views of the left knee were performed FINDINGS: Diffuse bony demineralization is identified. Cortical irregularity is identified within the proximal fibula for which a possible acute/subacute fr acture is present. Significant medial and lateral tibiofemoral joint space narrowing is identified. A moderate suprapatellar joint effusion is identified. The infrapatellar joint space is clear. IMPRESSION: Diffuse bony demineralization with cortical irregularity within the proximal fibula for which an acut e/subacute fracture is suspected. Moderate suprapatellar joint effusion. Further evaluation with a noncontrast enhanced CT examination of the left knee may be performed, if t he patient is clinically able. Reviewed, dictated and finalized at location A. LANE REFUELER IMPRESSION: Diffuse bony demineralization with cortical irregularity within the proximal fi bula for which an acute/subacute fracture is suspected. Moderate suprapatellar joint effusion. Further evaluation with a noncontrast enhanced CT examination of the left knee may be performed, if the patient is clinically able.
--- OUTSIDE RECORDS SUMMARY | 2024-07-03 10:07 | XMS_ITS | Encounter Summary ---
Author Organization [facility] Address [address] [place] [address] Phone Care Team Providers Care Commercial Or Institutional Cleaner Name Role Phone Lane Ontiveros MD Primary Care Provider Stanley Llamas PRICING SUPERVISOR Unavailable Unavailabl Micheline Merino MANAGER [employer] Unavailable Unavailabl e Maryam Pena Unavailable [phone] Kelly Huber RN Unavailable [phone] Lissy RochaW Unavailable [phone] Lissy RochaW Unavailable [phone] Lane Ontiveros MD Primary Care Provider Encounter Details Date Type Department Care Team (Late st Contact Info) Description 08/25/2017 Orders Only [facility] ProviderErica MD [address] [place] [id number] Social History Tobacco Use Types Packs/Day Years Used Date Smoking Tobacco: Former Smokeless Tobacco: Never Comments:Smoking History Pac ks/day: 0.5 Packs Alcohol Use Standard Drinks/Week Comments No 0 (1 standard drink = 0.6 oz pur e alcohol) Comments Unknown Sex and Gender Information Value Date Recorded Sex Assigned at Not on file Legal Sex 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 us Historical Provider LAB BLOOD ORDERABLES Lauren l Result documented in this encounter Visit Diagnoses Not on filedocumented in this encounter Additional Health Concerns Infection Onset Date Last Indicated Resolved Time COVID19 01/28/2022 01/28/2022 02/07/2022 3:05 AM CDT COVID: Recovered Comment:Added based on recent COVID infection. 02/07/2022 02/07/2022 06/07/2022 3:[address] COVID: Suspected 12/01/2023 12/01/2023 12/01/2023 10:16 AM CDT documented as of this encounter Care Teams Commercial Or Institutional Cleaner Relationship Specialty Start Date End Date Lane Ontiveros MD PCP - General 08/16/16 04/30/22 Lane Ontiveros MD [address] [place] [address] [address] [place] [id number] PCP - General Internal Medicine 05/01/22 Stanley Llamas LCSW Supervisor [employer] 07/10/18 07/12/18 Micheline Salomon LPN Care Manager 07/14/18 09/13/18 Maryam Pena [address] [place] [address] [address] [place] [address] ACO Care Color Worker 04/26/19 04/26/19 Kelly Huber RN [address] [place] [address] [address] [place] [address] Horse Trekking Guide 11/14/20 01/15/21 Lissy Rocha, PRICING SUPERVISOR [address] [place] [address] [place] [address] Supervisor [employer] 07/30/21 09/09/21 Lissy Rocha, PRICING SUPERVISOR [address] [place] [address] [place] [address] Supervisor [employer] 10/26/21 11/19/21 documented as of this encounter
--- OUTSIDE RECORDS SUMMARY | 2024-07-03 10:08 | XMS_ITS | Encounter Summary ---
Author Organization [facility] Address [address] [place] [address] Phone Care Team Providers Care Yield Clerk Name Role Phone Shweta Jimenez MD Primary Care Provider Encounter Details Date Type Department Care Team (Late st Contact Info) Description 04/17/2023 Nursing [facility] [address] [place] [phone] Audelia Kovacs MD [address] [place] [address] Social History Tobacco Use Types Packs/Day Years Used Date Smoking Tobacco: Never Assessed Comments Unknown Sex and Gender Information Value Date Recorded Sex Assigned at Not on file Legal Sex Female 5:27 PM CDT Gender Identity Not on file Sexual Orientation Not on file documented as of this encounter H&P Notes * Mazin Escamilla - 04/17/2023 11:23 AM CST [facility] Assisted History and Physical Chief Complaint: Fall, low back pain, lumbar compression fx HPI: Maria Ines Jacobs is a 88 y.o. female who has transferred to [facility] for post-acutecare and rehabilitation. Prior to coming to rehabilitation facility patient was hospitalized at [facility] from 04/11/2023 through 04/15/2023 for fall and lumbar compression fracture which was treated conservatively. At the time of this assessment, the patient did not have any complaints and stated that she wanted to go home where her dog is. She reports some localized lumbar tenderness which she says improves with the lidocaine patches and reports that she had a large bowel movement earlier. History obtained from: patient, medical records Review of Prior External Notes: [facility] records Allergies: is allergic to sulfasalazine, iodine, and lactose intolerance (gi). Past Medical History: Depression, anxiety, hypothyroidism, GERD, overactive bladder, glaucoma Surgical History: Appendectomy, cataract extraction, cholecystectomy, right femur fracture surgery,tonsillectomy, laparotomy, right tibia fracture surgery Social History: Denies use of tobacco, alcohol, and illicit drugs. Former smoker. Has children. Hasdog. Lives alone. Physical Exam: Vital Signs: All vitals were reviewed in the facility EMR and are stable. Exam: General: Well developed, well nourished, in no distress, sitting in wheelchair, elderly Skin: Normal appearance, poor turgor, no rashes, stasis dermatitis BLE HEENT: Normocephalic, atraumatic, no flaring, hard of hearing, full dentures, dry mucosa Eyes: nonicteric, intact extra occular movement, PERRL Neck: normal, supple, no lymphadenopathy Heart: regular rate and rhythm, S1, S2 normal, no murmur, click, rub or gallop Lungs: clear to ausculation, normal respirations, normal precautions Abdominal: soft, non-tender; bowel sounds normal; no masses, no organomegaly : external genitalia normal in appearance Extremities: no deformities, joint mobility appears intact, no clubbing, right wrist casted Neuro: Non-focal, CN intact, sensory and motor intact Psychological: alert and oriented X3, appropriate mood and affect, Intact judgement and memory Data Review: Lab Results: 04/14/2023 upon discharge from hospital, CBC with hemoglobin 11.0, WBC of 12.3 otherwise unremarkable. On 04/11 her CMP had albumin of 3.3 and was otherwise unremarkable. Imaging: No new imaging. Orders: No new orders Assessment/Plan: 1. Falls, generalized weakness and decreased mobilization. The patient is to receive PT and OT at the SNF to improve strength, balance, and mobility back to baseline. 2. New L2 compression fracture, chronic L3 compression fx. Continue pain management with prn medications and lidocaine patches. PT/OT should also help. No surgical intervention recommended. 3. Right 1st metatarsal fracture. Cast is in place on RUE. Patient has ortho follow-up on 05/07/2023. 4. Dehydration. Poor skin turgor and dry mucosa noted during physical exam. Increased oral hydration has been encouraged. 5. Constipation. Well-controlled. The patient will continue 17 g Miralax daily. 6. GERD. No acute symptoms. Continue H2 fran therapy with famotidine. 7. Depression and Anxiety. The patient's mood currently appears stable and no reported psychological distress at this time. Continue management with duloxetine, bupropion, and prn Xanax. 8. Hypothyroidism. Well-controlled. Continue levothyroxine. Check TSH levels periodically. 9. Overactive bladder. Continue Mirabegron. 10. Glaucoma. Continue eyedrops. 11. Anemia. Mild with Hgb stable at 11.0. Monitor CBC periodically and advise transfusion if Hgb drops below 7.0. VTE Prophylaxis: Mobilization Fall Care Plan Review: Patient has been educated on fall precautions and will be closely monitored. Pressure Ulcer Prevention Plan: Mobilization. Disposition and escalation or reduction of care: The patient is to receive post- acute care and complete PT and OT at the SNF to improve strength, balance, and mobility back to baseline with the goal of discharging to home where she lives alone. Advance Care Planning: Aggregate [id number] time, greater than 16 minutes was spent discussing end-of-life care planning with patient/family and/or Power of Instructional Material Director. Discussed CPR, Intubation, treatment goals, and Quality of life/Intensity of care. Patient desires CPR-Full Treatment Polst Form Completed. Mazin Masters, acting as a scribe, am personally taking down the notes in the presence of Dr. Audelia Kovacs M.D. Take no action on this note until reviewed and authenticated by the physician. By: MAZIN ESCAMILLA, 04/17/2023 Primary Care Physician: SHWETA JIMENEZ MD I evaluated and examined the patient in presence of scribe Mazin Escamilla and reviewed the medical records and the notes above and agree with the content and details of the notes. By: Audelia Kovacs M.D.. Cosigned by Audelia Kovacs MD at 07/01/2023 10:42 AM WEBBING WEAVER ING WEAVER ING WEAVER documented in this encounter Plan of Treatment Not on file documented as of this encounter Visit Diagnoses Not on filedocumented in this encounter Care Teams Yield Clerk Relationship Specialty Start Date End Date Shweta Jimenez MD [address] [facility] [address] [address] PCP - General Internal Medicine 10/08/18 documented as of this encounter
--- OUTSIDE RECORDS SUMMARY | 2024-07-03 10:08 | XMS_ITS ---
Author Organization [facility] Address Unknown Allergies, Adverse Reactions, Alerts Substance Reaction Status Noted Date Resolved Date Toradol active 04/15/2023 Tetracycline active 04/15/2023 Sulfa Antibiotics active 04/15/2023 Propoxyphene active 04/15/2023 Iodine I 131 Tositumomab active 04/15/2023 Indomethacin active 04/15/2023 diazePAM active 04/15/2023 Citalopram active 04/15/2023 cefTRIAXone active 04/15/2023 adhesive tape - silicones active 04/15/2023 Medications Medication Dose Frequency Directions Start Date End Timothy e Mirtazapine Tablet 15 MG 1 {tbl} Give 1 tablet by piero th at bedtime related to DEPRESSION, UNSPECIFIED (F32.A) 04/16/2023 DULoxetine HCl Capsule Delayed Release Particles 60 MG 1 {Capsule} 24 h Give 1 capsule by mouth one time a day for depression related to DEPRESSION, UNSPECIFIED (F32.A) 04/16/2023 Polyethylene Glycol 3350 Oral Powder 17 GM/SCOOP 17 24 h Give 17 gram by mout h one time a day for constipation 04/16/2023 Famotidine Tablet 20 MG 1 {tbl} 12 h Give 1 tablet by piero th two times a day for acid indigestion 04/16/2023 Synthroid Oral Tablet 88 MCG 1 {tbl} 24 h Give 1 tablet by piero th one time a day for hypothyroidism 04/16/2023 Ocuvite-Lutein Oral Tablet 1 {tbl} 24 h Give 1 tablet by piero th one time a day for supplement 04/16/2023 Albuterol Sulfate HFA Inhalation Aerosol Solution 108 (90 Base) MCG/ACT 2 2 puff inhale orally every 4 hours as needed for SOB/wheezing 04/15/2023 BuPROPion HCl ER (XL) Tablet Extended Release 24 Hour 150 MG 1 {tbl} 24 h Give 1 tablet by piero th one time a day for depression related to DEPRESSION, UNSPECIFIED (F32.A) 04/16/2023 Benzonatate Oral Capsule 100 MG 1 {Capsule} 12 h Give 1 capsule by mouth two times a day for cough 04/16/2023 Myrbetriq Oral Tablet Extended Release 24 Hour 25 MG 1 {tbl} 24 h Give 1 tablet by piero th one time a day for overactive bladder 04/16/2023 Citroma Solution 1.745 GM/30ML 296 mL Give 296 ml by mouth as needed for constipation In AM if no results after enema. If no results within 1 hour of completion of bowel protocol, contact MD immediately for further orders. 04/15/2023 Timoptic Ocudose Ophthalmic Solution 0.5 % 1 [drp] 12 h Instill 1 drop in vicki th eyes two times a day for glaucoma 04/16/2023 Fleet Enema 1 Insert 1 applic ation rectally as needed for for constipation If no results 1 day after suppository. 04/15/2023 Bisacodyl Suppository 10 MG 1 Insert 1 suppository rectally as needed for for constipation daily if no results for MOM 04/15/2023 Milk of Magnesia Suspension 400 MG/5ML 30 mL Give 30 ml by mout h as needed for Constipation at bedtime if not BM in 3 days 04/15/2023 Percocet Oral Tablet 5-325 MG 1 {tbl} Give 1 tablet by piero th every 6 hours as needed for pain 04/16/2023 ALPRAZolam Oral Tablet 0.25 MG 1 {tbl} Give 1 tablet by piero th every 4 hours as needed for anxiety 04/16/2023 Acetaminophen Tablet 650 MG 1 {tbl} Give 1 tablet by piero th every 4 hours as needed for General Discomfort - NTE 3000 mg daily Non-Pharm Interventions-1=music, aromatherapy, light touch/massage2=Reminis cence,reality orientation, validation therapy3=exercise, activities4=1:1 interaction, pet therapy5=Reduced stimulation, quiet area 04/22/2023 Medications Administered Medication Dose Frequency Status Start Date End Date Mirtazapine Tablet 15 MG 1 {tbl} 04/27 DULoxetine HCl Capsule Delay ed Release Particles 60 MG 1 {Capsule} 24 h 04/24/2023 Polyethylene Glycol 3350 Ora l Powder 17 GM/SCOOP 17 24 h 04/24/2023 Famotidine Tablet 20 MG 1 {tbl} 12 h 2022 Synthroid Oral Tablet 88 MCG 1 {tbl} 24 h 1 06/28/2022 Ocuvite-Lutein Oral Tablet 1 {tbl} 24 h 11/2022 Albuterol Sulfate HFA Inhala tion Aerosol Solution 108 (90 Base) MCG/ACT 2 04/15/2023 BuPROPion HCl ER (XL) Tablet Extended Release 24 Hour 150 MG 1 {tbl} 24 h Benzonatate Oral Capsule 100 MG 1 {Capsule} 12 h 04/27/2023 Myrbetriq Oral Tablet Extend ed Release 24 Hour 25 MG 1 {tbl} 24 h 04/24/2023 Citroma Solution 1.745 GM/30ML 296 mL 04/15/2023 Timoptic Ocudose Ophthalmic Solution 0.5 % 1 [drp] 12 h 04/27/2023 Fleet Enema 1 04/15/2023 Bisacodyl Suppository 10 MG 1 Milk of Magnesia Suspension 400 MG/5ML 30 mL 04/15/2023 Percocet Oral Tablet 5-325 MG 1 {tbl} 04/20/2023 ALPRAZolam Oral Tablet 0.25 MG 1 {tbl} 04/16/2023 Acetaminophen Tablet 650 MG 1 {tbl} Problems Problem Status Start Date End Date STABLE BURST FRACTURE OF SEC OND LUMBAR VERTEBRA, SUBSEQUENT ENCOUNTER FOR FRACTURE WITH ROUTINE HEALING (Primary) (S32.021D - ICD-10-CM) ACTIVE 04/15/2023 STABLE BURST FRACTURE OF THI RD LUMBAR VERTEBRA, SUBSEQUENT ENCOUNTER FOR FRACTURE WITH ROUTINE HEALING (S32.031D - ICD-10-CM) ACTIVE 04/15/2023 UNSPECIFIED FRACTURE OF STER NUM, SUBSEQUENT ENCOUNTER FOR FRACTURE WITH ROUTINE HEALING (S22.20XD - ICD-10-CM) ACTIVE 023 UNSPECIFIED ASTHMA, UNCOMPLICATED (J45.909 - ICD-10-CM ) ACTIVE 04/15/2023 OTHER OSTEOPOROSIS WITHOUT C URRENT PATHOLOGICAL FRACTURE (M81.8 - ICD-10-CM) ACTIVE 04/15/2023 UNSPECIFIED OSTEOARTHRITIS, UNSPECIFIED SITE (M19.90 - ICD-10-CM) ACTIVE 04/15/2023 CHRONIC DIASTOLIC (CONGESTIV E) HEART FAILURE (I50.32 - ICD-10-CM) ACTIVE 04/15/2023 CONSTIPATION, UNSPECIFIED (K59.00 - ICD-10-CM) ACTIVE 04/15/2023 ANXIETY DISORDER, UNSPECIFIED (F41.9 - ICD-10-CM) ACTI VE 04/15/2023 ESSENTIAL (PRIMARY) HYPERTENSION (I10 - ICD-10-CM) ACT MARY LOU 04/15/2023 HYPOTHYROIDISM, UNSPECIFIED (E03.9 - ICD-10-CM) ACTIVE 04/15/2023 GASTRO-ESOPHAGEAL REFLUX DIS EASE WITHOUT ESOPHAGITIS (K21.9 - ICD-10-CM) ACTIVE 04/15/2023 NEED FOR ASSISTANCE WITH PERSONAL CARE (Z74.1 - ICD-10 -CM) ACTIVE 04/15/2023 DIFFICULTY IN WALKING, NOT E LSEWHERE CLASSIFIED (R26.2 - ICD-10-CM) ACTIVE 04/15/2023 OVERACTIVE BLADDER (N32.81 - ICD-10-CM) ACTIVE 1 06/15/2022 DEPRESSION, UNSPECIFIED (F32.A - ICD-10-CM) ACTIVE 04/15/2023 Encounters Encounter Performer Performer Role Encounter Diagnoses Location Date Discharge - Discharged / Transferred to SNF - Other - [facility] 04/15/2023 04:57 pm EST - 04/18/2023 01:01 am EST Advance Directives Directive Description Verification Advance Directive:Full Code Cardiopulmonary Resu scitation Immunizations Vaccine Date TB 1 Step Mantoux (PPD) 04/16/2023 01:00 am EST Social History
--- OUTSIDE RECORDS SUMMARY | 2024-07-03 10:08 | XMS_ITS | Encounter Summary ---
Author Organization [facility] Address [address] [place] [address] Phone Care Team Providers Care Cutter Machine Name Role Phone Lane Ontiveros MD Primary Care Provider Encounter Details Date Type Department Care Team (Late st Contact Info) Description 05/08/2023 Nursing Facility [facility] [address] [place] [phone] Sancho Sampson, PAC [address] [place] [id number] Social History Tobacco Use Types Packs/Day Years Used Date Smoking Tobacco: Never Assessed Comments Unknown Sex and Gender Information Value Date Recorded Sex Assigned at Not on file Legal Sex Female 5:27 PM CDT Gender Identity Not on file Sexual Orientation Not on file documented as of this encounter Progress Notes * Sancho Sampson, TOOTIE - 05/08/2023 2:06 PM CST [facility] PROGRESS NOTE Maria Ines Donovans is a 88 y.o. female at [facility] for rehabilitation. Prior to coming to rehabilitation facility patient was hospitalized at [facility] from04/11/2023 through 04/15/2023 for lumbar compression fracture which was treated conservatively. Subjective: Interval History: I am seeing patient for a skilled visit. She is sitting comfortably in her chair. Says that she is feeling ???fine?? . Her back is ???sore?? but improving. Saw ortho yesterday who removed the cast. Ended up testing positive for COVID-19 last week during routine testing. Fortunately she never developed any symptoms. Having some right knee pain intermittently which is a chronic issue for her and she has known osteoarthritis. Therapy says she is improving but still fairly weak and needs assistance with transfers. Hopefully another cast has been removed she will have more improvement. Nursing staff with no concerns about the patient. Review of Systems: A 14 point comprehensive review of systems was negative except what is documented in interval history above. Objective: Exam: Vital Signs: Recent vital signs were reviewed in the electronic medical records at nursing facility and are unremarkable. General: Well developed, well nourished, in no distress Skin: Normal appearance, normal turgor, no rashes HEENT: Normocephalic, atraumatic, no flaring Eyes: nonicteric, intact extra occular movement, PERRL Neck: normal, supple, no lymphadenopathy Heart: regular rate and rhythm, S1, S2 normal, no murmur, click, rub or gallop Lungs: clear to ausculation, normal respirations with no accessory muscle use, normal rate Abdominal: soft, non-tender; bowel sounds normal; no masses, no organomegaly Extremities: no deformities, joint mobility appears intact, no clubbing Neuro: Non-focal, CN intact, sensory and motor intact Psychological: alert and oriented X3, appropriate mood and affect, Intact judgement and memory Lab Results: 04/14/2023 upon discharge from hospital, CBC with hemoglobin 11.0, WBC of 12.3 otherwise unremarkable. On 04/11 her CMP had albumin of 3.3 and was otherwise unremarkable. Imaging: None Assessment/Plan: Generalized weakness and deconditioning Receiving fpc care and physical therapy rehabilitation 05/08/2023 improving Lumbar compression fracture Conservative management with p.r.n. pain medications and therapy Right 1st metatarsal fracture Had ortho follow-up on 05/07/2023 - cast removed that point Constipation Continue daily MiraLax and Colace Right knee osteoarthritis 05/08: Four-week course of Voltaren gel ordered GERD Continue Pepcid Well controlled Other chronic medical conditions include depression, anxiety, hypothyroidism, overactive bladder, glaucoma Stable Continue home regimen VTE Prophylaxis: ] Activity I discussed advanced care planning with this patient. This note was dictated using [employer] fluency dictation system and there may be errors in line repairer. Despite proof reading the note, there may be mistakes and I apologize for those. By: TOOTIE Vaughn, 05/08/2023 2:06 PM VP CARE MANAGEMENT CARE MANAGEMENT documented in this encounter Plan of Treatment Not on file documented as of this encounter Visit Diagnoses Not on filedocumented in this encounter Care Teams Cutter Machine Relationship Specialty Start Date End Date Lane Ontiveros MD 2 [facility] [address] [address] PCP - General Internal Medicine 10/08/18 documented as of this encounter
--- OUTSIDE RECORDS SUMMARY | 2024-07-03 10:08 | XMS_ITS | Clinical Summary ---
Author Organization [facility] Address [address] [place] [address] Care Team Providers Care Cable Installation Technician Name Role Phone Shweta Ontiveros MD Primary Care Provider Allergies Active Allergy Reactions Criticality Noted Date Comments Adhesive Tape-Silicones Rash Medium 07/09/2018 Ceftriaxone Rash Medium 07/09/23 - Approved to give cefepime with ceftriaxone allergy per Ave Colunga DO/Ronni Garcia, PharmD Tolerating cephalexin 07/18/23 Citalopram Rash Medium 07/09/2018 Diazepam Dizziness Low Egg Other (See comments) Low 07/09/2018 Rash Indomethacin Itching Low Iodine Rash Medium Propoxyphene Mental status changes Low Reaction: confusion, Sulfa (Sulfonamide Antibiotics) Hives Medium Tetracycline Hives Reaction: hives, Ketorolac Other (See comments) Low 07/10/2018 Tightness in throat but goes away when drinks fluids Medications albuterol HFA (PROVENTIL HFA,VENTOLIN HFA,PROAIR HFA) 90 mcg/actuation inhaler INHALE TWO (2) PUFFS EVERY FOUR (4) (FOUR) HOURS NEEDED FOR WHEEZING OR SHORTNESS OF BREATH 8.5 g 1 2 Active timolol (TIMOPTIC) 0.5 % ophthalmic solution INSTILL ONE DROP IN EACH EYE TWO TIMES a DAY 10 mL 6 3 Active mirabegron ER (MYRBETRIQ) 25 mg tablet extended release 24 hrIndications:OA B (overactive bladder) Take 1 tablet (25 mg total) by mouth daily 30 tablet 11 3 Active levothyroxine (SYNTHROID) 88 mcg tablet TAKE ONE TABLET BY MOUTH DAILY 90 tablet 3 3 Active polyethylene glycol (MIRALAX) 17 gram/dose bulk powderIndication s:constipation Take 17 g by mouth daily 3 Active acetaminophen 500 mg capsuleIndicatio ns:Pain Take 2 capsules (1,000 mg total) by mouth 3 (three) times a day as needed for pain 4 Active bisacodyL (DULCOLAX) 10 mg suppository Insert into the rectum 3 Active vit A,C and X-htuzxu-nvosiue s (Ocuvite with Lutein) 300 mcg-200 mg-27 mg-2 mg tablet Take 1 tablet by mouth daily 3 Active mirtazapine (REMERON) 15 mg tablet Take 1 tablet (15 mg total) by mouth nightly 90 tablet 3 4 09/05/19 25 Active buPROPion XL (WELLBUTRIN XL) 150 mg 24 hr tablet TAKE ONE (1) TABLET BY MOUTH EVERY MORNING FOR MOOD AND ENERGY 90 tablet 3 4 Active famotidine (PEPCID) 20 mg tablet Take 1 tablet (20 mg total) by mouth 2 (two) times a day 180 tablet [address] (CYMBALTA) 60 mg capsule TAKE 1 CAPSULE (60 MG TOTAL) BY MOUTH NIGHTLY 90 capsule 4 Active diphenoxylate-at ropine (LOMOTIL) 2.5-0.025 mg per tablet TAKE 1 TABLET BY MOUTH FOUR (4) (FOUR) TIMES a DAY NEEDED FOR DIARRHEA 20 tablet 1 4 Active furosemide (LASIX) 20 mg tablet TAKE ONE (1) TABLET BY MOUTH EVERY DAY (DIURETIC) 90 tablet 3 4 Active Additional Information Patient not taking.Reported on 01/12/2024 atorvastatin (LIPITOR) 40 mg tablet TAKE ONE (1) TABLET BY MOUTH EVERY DAY FOR CHLESTEROL 90 tablet 3 4 Active ergocalciferol (VITAMIN D) 50,000 unit capsule TAKE 1 CAPSULE (50,000 UNITS TOTAL) BY MOUTH ONCE a WEEK 12 capsule 4 Active carvediloL (COREG) 6.25 mg tablet TAKE 1 TABLET (6.25 MG TOTAL) BY MOUTH TWO (2) (TWO) TIMES a DAY WITH MEALS 90 tablet 1 4 Active lidocaine (Lidoderm) 5 % Place 1 patch on the skin daily Remove & discard patch within 12 hours or as directed by . 30 patch 11 4 Active aspirin 81 mg enteric coated tabletIndication s:prevention of thrombosis Take 1 tablet (81 mg total) by mouth 2 (two) times a day for 14 days 28 tablet 4 Active methocarbamoL (ROBAXIN) 500 mg tablet Take 1 tablet (500 mg total) by mouth 3 (three) times a day as needed for muscle spasms 4 Active senna-docusate (PERICOLACE) 8.6-50 mg Take 1 tablet by mouth 2 (two) times a day 4 Active aspirin 81 mg enteric coated tablet Take 1 tablet (81 mg total) by mouth daily 4 Active Active Problems Problem Noted Date Diagnosed Date Elevated serum creatinine 12/04/2023 Assessment & Plan (12/05/2023 2:19 PM CDT): - 12/03: Cr 1.12 (0.85) (does not meet criteria for LARRY). Hgb downtrending, hold Lasix - 12/04: Cr 0.93, urine output 1075 cc/24 hr. will resume Lasix if patient discharges today - BMP and fluid status monitored Sore throat 12/03/2023 Assessment & Plan (12/03/2023 1:19 PM CDT): - 11/30 RVP negative Leukocytosis 12/03/2023 Assessment & Plan (12/05/2023 1:35 PM CDT): - WBC 13.4 on admission - Trend WBC: 13.4- 13.4- 12.2- 14.8- 13.5- 12.8 - Currently afebrile - No increased O2 requirements ABLA (acute blood loss anemia) 12/03/2023 Assessment & Plan (12/05/2023 2:21 PM CDT): - On chronic anemia, no recent studies to determine type of chronic anemia likely anemia of chronic disease - Hgb 10.0 on admission - Hgb trend: 10.0- 9.1- 9.8- 8.9- 7.7- 7.8 - Transfuse for Hgb <7.0 or symptomatic - CBC was monitored, no active signs or symptoms of bleeding, hemodynamically unsupported at discharge CVA (cerebral vascular accident) 11/29/2023 Assessment & Plan (11/29/2023 2:00 PM CDT): #History of CVA - not taking ASA Closed bimalleolar fracture of right ankle 11/27 Assessment & Plan (12/03/2023 1:17 PM CDT): #R bimalleolar ankle fracture - ortho consult: s/p reduction and splint in ED - CT R ankle (11/28): There is a mildly displaced right ankle trimalleolar fracture. - IPAP c/s - S/p OR 12/01 ORIF ankle - NWB RLE x 6 weeks, CAM boot - Suture removal in 3 weeks (12/24/23) -- will be removed at follow up. Dressings/CAM boot to remain in place until follow up. - PT/OT - Pain control Takotsubo cardiomyopathy 08/25/2023 NSTEMI (non-ST elevated myocardial infarction) ( [facility]) 08/25/2023 HFrEF (heart failure with re duced ejection fraction) ([facility]) 08/25/2023 Assessment & Plan (12/05/2023 2:19 PM CDT): #HFrEF - Follows with Dr. Wolfe ([facility]) - Most recent TTE: 07/11/23, LVEF 20-25%, L heart cath 07/21/23 diagnosed stress- induced cardiomyopathy from hypotension and cardiogenic shock post-op R femur ORIF - IPAP consult - 11/28: repeat TTE: LV is mildly dilated with estimated LVEF 43%. Akinetic anteroseptum, apical septum. Normal RV function. Normal LA. Estimated PASP 56mmHg+RA pressure. RA pressure is normal - hold home coreg, lasix, losartan, spironolactone - 12/02: Lasix continued, resume Coreg - 12/03: Cr up to 1.12, I/O net negative 168 cc day, hold Lasix. Hgb 7.7 (8.9). - chest xray (12/03): no effusion or consolidation bilaterally. No PTX. - Resume Lasix at discharge. Facility can resume Losartan and spironolactone as blood pressure allows. Assessment & Plan (08/25/2023 4:06 PM CDT): New dx Continue current regimen Seen by cardio inpatient Needed appt within 2-4 weeks fo rdischarge Discharge infom from [facility] cardiology provided as below Outpatient Follow-Up Plan: Follow-up with [facility]:General Cardiology in 2-4 weeks. Please call to make an appointment when the patient is ready for discharge. If the appointment has not been scheduled by the time of discharge, please provide the following information to the patient on the discharge instructions: If you have not received information within a week of discharge regarding a follow-up appointment with [facility], please contact our office at . Thank you for involving us in the care of this patient. If you have any additional questions or concerns during this admission, please contact the respective cardiology consult team listed on [employer] OR, from Friday-Friday, 7:30 am - 4:30 pm, you may reach the Cardiology Consult Line at . Fall 08/25/2023 Chronic deep vein thrombosis (DVT) of left upper extremity 07/15/2023 Assessment & Plan (07/15/2023 11:01 AM EYE CLINIC MANAGER): - Currently on heparin gtt - Could consider stopping given chronicity of DVT Shock ([facility]) 07/10/2023 Assessment & Plan (07/15/2023 6:29 AM EYE CLINIC MANAGER): - 07/09 Transferred to SICU for persistent hypotension, anuria, presumed cardiogenic shock given Trop 5700, BNP 20k. - Antibiotics completed 07/11 - Cardiology consulted - likely type II NSTEMI or Tako-Tsubo, dobutamine weaned and now on Isordil 20 mg TID and hydralazine 10 mg TID - ASA 81 daily - Trops downtrending - Repeat TTE w/ global hypokinesis - EF 20-25% LARRY (acute kidney injury) 07/09/2023 Assessment & Plan (07/14/2023 5:41 AM EYE CLINIC MANAGER): - Cr 0.65 on admission - Cr elevated, now downtrending. Peak around 2 - Monitor urine output, gentle IVF hydration - Follow BMP daily Closed fracture of proximal end of right tibia, unspecified fracture morphology, initial encounter 07/08/2023 Fracture of right tibia and fibula 07/08/2023 Assessment & Plan (07/08/2023 3:26 PM EYE CLINIC MANAGER): - Orthopedics consult - Splinted in ED - s/p OR 07/08 for IMN right tibia - Ancef x 24h post op - WBAT RLE - Pain control - PT/OT Syncope 07/08/2023 Assessment & Plan (07/11/2023 7:43 AM EYE CLINIC MANAGER): - Frequent falls recently reported by patient's daughter - Telemetry monitoring - EKG with left BBB (known history) - See shock below Delirium 07/08/2023 Assessment & Plan (07/13/2023 5:19 PM EYE CLINIC MANAGER): - Delirium precautions - Ramelteon HS Anxiety 07/08/2023 Assessment & Plan (11/29/2023 1:58 PM CDT): #Panic attacks - Intermittent 1L 20- 25min of O2 at home about 1x/week when feels anxious - continue home bupropion and duloxetine Assessment & Plan (07/15/2023 6:25 AM EYE CLINIC MANAGER): - Continue home duloxetine, bupropion, mirtazapine - Holding home Xanax - Atarax daily PRN Depression 07/08/2023 Assessment & Plan (07/08/2023 11:56 AM EYE CLINIC MANAGER): SEE ANXIETY Overactive bladder 07/08/2023 Assessment & Plan (07/13/2023 5:20 PM EYE CLINIC MANAGER): - Continue home Myrbetriq (temporarily held) Acute pain due to trauma 07/08/2023 Assessment & Plan (12/02/2023 4:40 PM CDT): - Tylenol 1000mg Q6H - Oxycodone 5mg Q4H PRN - Robaxin 500mg TID PRN Assessment & Plan (07/14/2023 5:41 AM EYE CLINIC MANAGER): - tylenol 1000 mg q6h PRN - oxycodone 2.5mg q4h PRN - lidocaine patch Discharge planning issues 07/08/2023 Assessment & Plan (12/05/2023 2:19 PM CDT): - CM initial assessment completed - +Insurance - Plan for OR 12/01 with Ortho. - 12/02: POD1, PT/OT, monitor labs - 12/03: Hgb downtrending, Cr increased 1.12 - 12/04: Cr improved, hgb lateral Patient is medically stable for discharge, SW/CM updated. Discharge pending facility bed availability - CM to follow up with facility. - update: patient discharging 12/04 Assessment & Plan (07/15/2023 6:27 AM EYE CLINIC MANAGER): - 07/08: Pending OR with orthopedics - 07/09: Cr 1.22, LR bolus given, Pending PT/OT evaluations - 07/10 - 07/14: SICU for shock, on dobutamine gtt - 07/15: dobutamine off, cards requesting transfer to their primary service when out of ICU Stress-induced cardiomyopathy 07/07/2023 Difficulty in walking, not elsewhere classified 04/15/2023 Unspecified asthma, uncomplicated 04/15/2023 Assessment & Plan (12/03/2023 1:22 PM CDT): #MARY - Wear supplemental O2 at night and PRN - Refuses CPAP - Albuterol PRN - Wean supplemental oxygen as able - Incentive spirometry Unspecified osteoarthritis, unspecified site Slow transit constipation 04/12/2023 Class 1 obesity due to exces s calories with body mass index (BMI) of 31.0 to 31.9 in adult 04/12/2023 Primary hypertension 04/12/2023 Chronic diastolic (congestive) heart failure Closed fracture of sternum 04/12/2023 Closed burst fracture of lumbar vertebra (CMS/HC C) 04/11/2023 Assessment & Plan (07/15/2023 6:26 AM EYE CLINIC MANAGER): - NSGY consult - Non operative management -TLSO when OOB - Still need upright XR in TLSO when able, call NSGY to review - Q4H neuro checks - Outpatient follow up in 6 weeks with NSGY Nerve compression 04/30/2022 History of 2019 novel coronavirus disease (COVID -19) 02/26/2022 Right wrist drop 01/02/2022 Overview (01/02/2022): Added automatically from request for surgery [id number] Injury of right posterior interosseous nerve Overview (01/02/2022): Added automatically from request for surgery [id number] Radial nerve palsy, right 12/17/2021 Closed fracture of lower end of left radius with delayed healing 10/25/2021 Urinary incontinence 10/24/2021 Compression fracture of T2 vertebra 10/12/2021 Cervical radiculopathy 10/12/2021 Degenerative disc disease, cervical 10/12/2021 Shoulder tendonitis, right 08/27/2021 Fall at home 08/01/2021 Assessment & Plan (11/29/2023 1:57 PM CDT): - 4-5 mechanical falls in the last year, most recent was August. Lives alone. 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 Does not manage her own medications - PT/OT Assessment & Plan (08/02/2021 1:56 PM CDT): Mechanical fall CT head and neck negative advil prn for headache w/ food F/u prn Arthritis of knee, left 02/27/2021 Elevated d-dimer 11/13/2020 Left bundle branch block (LB BB) determined by electrocardiography 11/13/2020 Medicare annual wellness visit, subsequent 03/22 Assessment & Plan (03/22/2019 11:00 AM EYE CLINIC MANAGER): Self assessment detail includes: No current home safety or functional concerns at this time per assessment scales. Hearing and vision intact. Admits to use smoke and carbon monoxide alarms. The fall risk is minimal. The cognitive screening was negative for dementia, depression anxiety both appear to be stable on current medication. Pt has a living will and durable power of banking attorney in place. In regard to social hx- patient is a nonsmoker, social ETOH use, declined street drug use. Motor safety was discussed as well. Pt endorses wearing seatbelt in not drinking while driving. Patient admits to mild to moderate exercise with like to low intensity, healthy nutrition is admitted, and nutritional status is stable . BMI is 31 and stable. Regard to vaccinations, Pt has a prior allergy to influenza and pneumococcal declining desire to move for with these vaccines. She noted to have received her tetanus vaccine in June 2018 disturbance office after acute fracture. We discussed risk vs benefit of receiving Shingrix vaccination, but given prior anaphylaxis to vaccines they declined desire for shingles vaccination today. Colonoscopy last completed in 2009 and mammogram in 2015. After discussion of recommendations, further colonoscopy mammogram screenings were deferred. Last DEXA scan was completed in 2015, DEXA scan reordered today in clinic All wellness labs were discussed throughout in office today as well ASCVD risk:N/A given age. Cholesterol as well WNL and discussed under HLD. All current medications were reviewed well with Pt in regard to chronic conditions. Pt was encouraged to F/U for next annual Medicare wellness in 1 year in 6 months regarding chronic conditions Stress incontinence in female 03/22/2019 Assessment & Plan (03/22/2019 10:58 AM EYE CLINIC MANAGER): Decline urologist consultation this point time, stress incontinence VS overactive bladder. Recommended trial of oxybutynin one to 2 times a day advising increase side effect of dry mouth. 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 To see pain management, , for pain management. Cnt. With Cymbalta as prior advised. Multiple-type hyperlipidemia 02/14/2016 Overview (08/23/2016): MIXED HYPERLIPIDEMIA Assessment & Plan (11/29/2023 2:01 PM CDT): - continue home atorvastatin Assessment & Plan (03/22/2019 10:56 AM EYE CLINIC MANAGER): Stable with recent labs indicated total cholesterol 172, triglycerides 125, LDL 94, HDL 53. Cnt. Heart healthy diet, mild daily exercise. ASA discussed, but deferred given risks vs benefit. Hypothyroid 02/14/2016 Overview (08/23/2016): HYPOTHYROIDISM NOS Assessment & Plan (11/29/2023 1:59 PM CDT): - continue home synthroid Assessment & Plan (07/08/2023 12:06 PM EYE CLINIC MANAGER): - Continue Synthroid Generalized osteoarthritis 10/02/2013 Overview (08/23/2016): GENERAL OSTEOARTHROSIS Gastroesophageal reflux disease 10/02/2013 Overview (08/23/2016): ESOPHAGEAL REFLUX Assessment & Plan (11/29/2023 2:01 PM CDT): - continue home pepcid Age-related osteoporosis with current pathologic al fracture 10/02/2013 Overview (08/23/2016): OSTEOPOROSIS NOS Normocytic anemia Assessment & Plan (03/22/2019 10:52 AM EYE CLINIC MANAGER): Anemia secondary to femur fracture in June 2018 with recent H&H NL at 12.7/41.4 MCV 94.7. Asymptomatic. Repeat CBC in 6 months for re-evaluation Leukocytosis Hypoxia Resolved Problems Problem Noted Date Diagnosed Date Resolved Date Closed head injury 12/03/2022 Facial contusion, initial encounter 12/03/2022 01/23/2023 Cervical strain, acute, initial encounter 12/03/2022 01/23/2023 Cellulitis of anterior lower leg 02/26/2022 01/23/2023 Cervicalgia 10/12/2021 12/05/2022 Elevated troponin 11/13/2020 06/07/2021 Leg pain 11/13/2020 06/07/2021 Chronic obstructive pulmonary disease 11/12/2020 11/21/2020 Orthopedic aftercare 10/15/2018 022 Fracture of distal end of femur ([facility]) 07/09/2018 07/26/2019 Pain, joint, shoulder, left 09/10/2017 08/27/2021 BMI 30.0-30.9,adult 06/23/2017 12/06/19 23 Assessment & Plan (06/23/2017 2:21 PM EYE CLINIC MANAGER): Recommended patient to continue to increase heart healthy diet with adequate fruits, vegetables, and plenty of water along with mild-moderate daily exercise as tolerated. Pleurisy 06/23/2017 09/08/2017 Assessment & Plan (06/23/2017 2:23 PM EYE CLINIC MANAGER): Recommended Tescecilia De La Cruz for cough suppression to take 1-2 tabs t.i.d. p.r.n. additionally I advised her she can take plain naproxen only on a p.r.n. basis or Advil she cannot take both. Follow-up in office in 4 days is recommended Acute bronchitis due to othe r specified organisms 06/23/2017 09/08/2017 Assessment & Plan (06/23/2017 2:22 PM EYE CLINIC MANAGER): Recommended Levaquin 500 mg once daily for 10 day course considering her treatment failure with 3 courses of zithromax to which I also recommended her to go ahead and get a chest x-ray done just to ensure there is no concern of pneumonia considering her history of COPD and smoking. Close follow-up outpatient MR also treating her with tapering corticosteroids over course of 10 days, increased fluids, Mucinex [id number]-[id number] for daytime cough and Tessalon Perles for p.r.n. cough suppression Lateral knee pain 02/03/2017 09/08/2017 Assessment & Plan (02/03/2017 5:33 PM CDT): Patient to proceed with x-ray of the left knee. Further direction pending radiologist's report. She has tramadol for p.r.n. use at home in the interim. She is to rest ice and elevate the area until she hears back from me regarding her x- ray results. She is to contact me if she has not heard from me regarding these x- rays by tomorrow afternoon. Nasal pain 02/03/2017 09/08/2017 Assessment & Plan (02/03/2017 5:32 PM CDT): Patient to proceed with x-ray of the nasal bone. Further direction pending radiologist's report. She tells me even if the nose his broken she would not have any interested in fixing this for cosmetic reasons. But, she would like to know if it is broken. She has tramadol for p.r.n. use at home in the interim. Goal compress as needed. Gastroenteritis 08/31/2014 03/10/2017 Overview (08/23/2016): Gastroenteritis Vertigo 08/31/2014 06/23/2017 Overview (08/23/2016): Vertigo Chronic obstructive pulmonar y disease with acute lower respiratory infection 10/02/20132017 Overview (08/23/2016): CHR AIRWAY OBSTRUCT NEC Assessment & Plan (06/23/2017 2:23 PM EYE CLINIC MANAGER): Possible COPD exacerbation due to acute bronchitis. Please refer to acute bronchitis plan for management of acute respiratory tract infection Controlled type 2 diabetes sejal fry without complication ([facility]) 05/08/2012 03/10/2017 Overview (08/23/2016): Diabetes Mellitus Type 2, Uncomplicated Pneumonia of left lower lobe due to infectious organism 10/05/2018 Immunizations Name Administration Dates Next Due Influenza, Unspecified 05/08/2022(Deferr ed: Patient Refused),02/16/2022(Deferred: Allergy),09/21/2021(Deferred: Patient Refused),08/02/2021(Deferred: Patient Refused),06/26/2021(Deferred: Patient Refused),02/27/2021(Deferred: Patient Refused),02/16/2021(Deferred: Patient Refused),02/16/2021(Deferred: Patient Refused),12/17/2020(Deferred: Patient Refused),02/17/2020(Deferred: Patient Refused),02/17/2020(Deferred: Patient Refused),02/17/2020(Deferred: Patient Refused),02/01/2020(Deferred: Patient Refused),12/24/2019(Deferred: Patient Refused),03/22/2019(Deferred: Allergy),02/16/2019(Deferred: Patient Refused),01/11/2019(Deferred: Other - allerigc),10/05/2018(Deferred: Allergy),03/13/2018(Deferred: Other - allergic),02/16/2018(Deferred: Allergy) Pfizer SARS-CoV-2 Monovalent Vaccination (12+ Yrs) PURPLE 08/17/2020,07/27/2020 Pneumococcal Conjugate PCV 13 02/27/2021(Deferre d: Patient Refused) Pneumococcal Conjugate, Unspecified 08/27/2021(D eferred: Allergy) Surgical History Surgery Date Site/Laterality Comments CHOLECYSTECTOMY 2003 Cholecystectomy OTHER SURGICAL HISTORY T&A OTHER SURGICAL HISTORY benign tumor in colon: resected, appy CATARACT EXTRACTION Cataract extraction TONSILLECTOMY Tonsillectomy APPENDECTOMY Appendectomy OTHER SURGICAL HISTORY Lapartomy TIBIA FRACTURE SURGERY Right FEMUR FRACTURE SURGERY Right Medical History Medical History Date Comments Hx Other Medical 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 Hyperlipidemia Hyperlipidemia Gastroesophageal reflux disease GERD Osteoporosis Osteoporosis Osteoarthritis Osteoarthritis Hx Other Medical 1982 benign tumor in colon Hx Other Medical [employer] Disorder of thyroid Thyroid dise ase Hx Other Medical 03/08/2012 ER visit for ch est pain Hx Other Medical Gallbladder Hx Other Medical Abdominal Tumor Hx Other Medical lens implants o s&od Cerebrovascular accident (CVA) (HCC) stroke Depression Depression Eye exam, routine 05/05/2017 Mohs defect of right nose cancer Cancer (CMS/HCC) (HCC) MOHS surg gerard on left nose - cancerous Eye exam, routine 08/19/2017 Motion sickness Asthma Family History Medical History Relation Name Comments Thyroid disease Daughter 5 thyroid dise ase; Other Daughter 6 lupus vs sjogre ns; Diabetes Daughter 7 Diabetes mellit us; Hypertension Daughter 8 Hypertension; Depression Father Depression; Lung cancer Father Cancer -lung; Other Father black lung dise ase; Cause of : black lung disease Prostate cancer Father Cancer -pros early; Depression Mother Depression; Heart disease Mother Heart disease; Heart failure Mother Congestive hea rt failure; Hypertension Mother Hypertension; Stroke Mother Stroke; Prostate cancer Other 1 Family histo ry of Cancer, prostate; Heart disease Other 2 Family history of Heart disease; Hypertension Other 3 Family history of Hypertension; Lung disease Other 4 Family history of Lung Problems; Seizures Other 5 Family history of Seizure disorder; Depression Other 6 Family history of Depression; Mental illness Other 7 Family histor y of Mental illness; Cancer Paternal Grandfather Cancer -; Heart attack Paternal Grandfather Myocard ial infarction; Relation Name Status Comments Daughter 1 Alive Daughter 2 Alive Daughter 3 Alive Daughter 4 Alive Daughter 5 Daughter 6 Daughter 7 Daughter 8 Father Mother Other 1 Other 2 Other 3 Other 4 Other 5 Other 6 Other 7 Paternal Grandfather Social History Tobacco Use Types Packs/Day Years Used Date Smoking Tobacco: Former Cigarettes Smokeless Tobacco: Never Tobacco Cessation:Counseling Given: Not Answered Comments:quit years ago Alcohol Use Standard Drinks/Week Comments No 0 (1 standard drink = 0.6 oz pur e alcohol) [facility] Utilities Answer Date Recorded In the past 12 months has [employer], gas, oil, or water [employer] threatened to shut off services in your home? No 11/30/2023 Social Connection and Isolat ion Panel [NHANES] Answer Date Recorded In a typical week, how many times do you talk on the phone with family, friends, or neighbors? More than three times a week 11/30/2023 How often do you get togethe r with friends or relatives? More than three times a week 11/30/2023 How often do you attend chur ch or presybeterian services? Never 11/30/2023 Do you belong to any clubs o r organizations such as faith groups, unions, fraternal or athletic groups, or school groups? No 11/30/2023 How often do you attend meet ings of the clubs or organizations you belong to? Never 11/30/2023 Are you , , di vorced, , never , or living with a partner? 11/30/2023 AUDIT-C Answer Date Recorded Q1: How often do you have a drink containing alcohol? Never 07/21/2023 Q2: How many drinks containi ng alcohol do you have on a typical day when you are drinking? Patient does not drink Q3: How often do you have si x or more drinks on one occasion? Never 07/21/2023 Overall Financial Resource Strain (CARDIA) Answe r Date Recorded How hard is it for you to pa y for the very basics like food, housing, medical care, and heating? Not hard at all 11/30/2023 PHQ-2 Answer Date Recorded PHQ-2 Total Score 0 11/30/2023 Hunger Vital Sign Answer Date Recorded Within the past 12 months, y ou worried that your food would run out before you got the money to buy more. Never true 11/30/19 24 Within the past 12 months, t he food you bought just didn't last and you didn't have money to get more. Never true 11/30/2023 PRAPARE - Transportation Answer Date Re corded In the past 12 months, has l ack of transportation kept you from medical appointments or from getting medications? No 11/16 In the past 12 months, has l ack of transportation kept you from meetings, work, or from getting things needed for daily living? No 11/30/2023 Housing Stability Vital Sign Answer Timothy e Recorded In the last 12 months, was t here a time when you were not able to pay the mortgage or rent on time? No 07/11/2023 In the last 12 months, how many places have you lived? 1 07/11/2023 In the last 12 months, was t here a time when you did not have a steady place to sleep or slept in a correction (including now)? No 07/11/2023 Housing Stability Vital Sign Answer Timothy e Recorded In the last 12 months, was t here a time when you were not able to pay the mortgage or rent on time? No 11/30/2023 In the past 12 months, how m any times have you moved where you were living? 0 11/30/2023 At any time in the past 12 m [facility], were you homeless or living in a correction (including now)? No 11/30/2023 Personal Safety Answer Date Recorded Have you ever been in or are you currently in a harmful physical or emotional relationship or is someone making you feel afraid or unsafe? 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 Gender Identity Not on file Sexual Orientation Not on file Obstetrics History Last Filed Vital Signs Vital Sign Reading Time Taken Comments Blood Pressure 136/74 01/12/2024 2:14 PM CDT Pulse 71 01/12/2024 2:14 PM CDT Temperature 37.1 C (98.8 F) 12/05/2023 3:25 PM CDT Respiratory Rate 24 12/05/2023 3:25 PM CDT Oxygen Saturation 93% 01/12/2024 2:14 PM CDT Inhaled Oxygen Concentration - - Weight 69.5 kg (153 lb 3.5 oz) 12/03/2023 7:00 P M CDT Height 157.5 cm (5' 2 ) 01/12/2024 2:14 PM CDT Body Mass Index 28.02 11/29/2023 1:25 PM CDT Plan of Treatment Health Maintenance Due Date Last Done Comments DTaP/Tdap/Td Vaccine (1 - Tdap) 1946 Hepatitis B Screening 1953 Zoster Vaccine (1 of 2) 1985 Colon Cancer Screening-Colonoscopy 02/07/2020 02/06/2010, 02/06/2010, 02/06/2010, Additional history exists Covid-19 Vaccine (3 2023-2 5 season) 2024 08/17/2020, 07/27/2020 Well Visit 65+ 10/05/2024 10/06/2023, 08/17, 08/22/2020, Additional history exists Depression Screening 11/27/2024 11/28/2023, 10/06/2023, 08/25/2023, Additional history exists Fall Risk Assessment 12/03/2024 12/04/2023, 10/06/2023, 08/25/2023, Additional history exists Colon Cancer Screening-CT Colonography Discontinued 02/06/2010, 02/06/2010, 02/06/2010, Additional history exists Colon Cancer Screening-DNA Stool Discontinued 02/06/2010, 02/06/2010, 02/06/2010, Additional history exists Colon Cancer Screening-FIT Discontinued 02/06, 02/06/2010, 02/06/2010, Additional history exists Colon Cancer Screening-Sigmoidoscopy Discontinued 02/06/2010, 02/06/2010, 02/06/2010, Additional history exists Breast Cancer Screening-Mammogram Discontinued 03/04/2016, 03/04/2016, 03/02/2015, Additional history exists Influenza Vaccine Discontinued Pneumococcal vaccine 65+ Discontinued Medical Devices Implanted Type Area Welfare Interviewer Device Identifier Shelf Expiration Date Model / Serial / Lot itzat Angio-Seal Vip 6fr Closere Device [id number] - [id number] - [id number] Implanted:Qty: 1 on 07/21/2023 by Tc Enriquez MD at [facility] Collagen Left: Common Femoral Artery DISKOVRe Chavez 04/03/2024 [id number] / [id number] / [id number] [employer]/Or tho Trigen Rockwell-Nail 8.5mm 33cm Tibia Nail Intramedullary Titanium [id number] - [id number] Implanted:Qty: 1 on 07/08/2023 by Emiliano Wagner MD at [facility] Nail Right: Tibia [employer]/ Ortho [id number] 02/29/2032 [id number] / / [id number] [employer]/Or tho 4.5mm 6.5mm Low Profile Internal Capture Femur Screw Bone Trigen [id number] - [id number] Implanted:Qty: 1 on 07/08/2023 by Emiliano Wagner MD at [facility] Screw Right: Tibia [employer]/ Ortho [id number] 08/21/2031 [id number] / / [id number] [employer]/Or tho 4.5mm 60mm Low Profile Internal Capture Femur Screw Bone Trigen [id number] - [id number] Implanted:Qty: 1 on 07/08/2023 by Emiliano Wagner MD at [facility] Screw Right: Tibia [employer]/ Ortho [id number] 06/28/2030 [id number] / / [id number] [employer]/Or tho 4.5mm 40mm Low Profile Internal Capture Femur Screw Bone Trigen [id number] - S0 - [id number] Implanted:Qty: 1 on 07/08/2023 by Emiliano Wagner MD at [facility] Screw Right: Tibia [employer]/ Ortho [id number] 01/15/2032 [id number] / 0 / [id number] [employer]/Or tho 4.5mm 32.5mm Low Profile Internal Capture Femur Screw Bone Trigen [id number] - [id number] Implanted:Qty: 1 on 07/08/2023 by Emiliano Wagner MD at [facility] Screw Right: Tibia [employer]/ Ortho [id number] 05/22/2031 [id number] / / [id number] [employer]/Or tho 4.5mm 25mm Low Profile Internal Capture Femur Screw Bone Trigen [id number] - [id number] Implanted:Qty: 1 on 07/08/2023 by Emiliano Wagner MD at [facility] Screw Right: Tibia [employer]/ Ortho [id number] 08/19/2031 [id number] / / [id number] [employer]/Or tho 5mm 40mm Low Profile Internal Hex Femur Screw Bone Trigen 25968222 - S0 - [id number] Implanted:Qty: 1 on 07/08/2023 by Emiliano Wagner MD at [facility] Screw Right: Tibia [employer]/ Ortho [id number] / 0 / 4.5mm Lcp Condylar Plates Implanted:Qty: 1 on 07/10/2018 by Shweta Iverson MD at [facility] Right: Femur DEPUY SYNTHES HackerHAND C1713 222.656 / / Synthes 02.205.065 5mm 4.4mm 65mm Cannulated Self Tap Self Drill Lock 4mm Full - [id number] Implanted:Qty: 1 on 07/10/2018 by Shweta Iverson MD at [facility] Right: Femur Synthes I 02.205.06 5 / / Synthes 02.205.075 5mm 4.4mm 75mm Cannulated Self Tap Self Drill Lock 4mm Full - [id number] Implanted:Qty: 2 on 07/10/2018 by Shweta Iverson MD at [facility] Right: Femur Synthes I 02.205.07 5 / / Synthes 214.840 4.5mm 8mm 40mm Self Tap Large Hexagonal Socket Cortex Screw Bone - [id number] Implanted:Qty: 1 on 07/10/2018 by Shweta Iverson MD at [facility] Right: Femur Synthes I 214.840 / / 5.0mm Locking Screw, Self-Tapping With T25 Stardrive Recess Implanted:Qty: 1 on 07/10/2018 by Shweta Iverson MD at [facility] Right: Femur DEPUY [employer] C1713 212.208 / / Synthes 212.218 5mm 4.4mm 48mm Self Tap Lock Stardrive Conical Head Cortical - [id number] Implanted:Qty: 1 on 07/10/2018 by Shweta Iverson MD at [facility] Right: Femur Synthes I C1713 212.218 / / 7.3mm Cannulated Locking Screw Implanted:Qty: 1 on 07/10/2018 by Shweta Iverson MD at [facility] Right: Femur DEPUY SYNTHES HackerHAND C1713 02.207.08 0 / / 5.0mm Locking Screws, Self-Tapping With T25 Stardrive Recess Implanted:Qty: 1 on 07/10/2018 by Shweta Iverson MD at [facility] Right: Femur DEPU[employer] C1713 212.216 / / 5.0mm Locking Screws, Self-Tapping With T25 Stardrive Recess Implanted:Qty: 2 on 07/10/2018 by Shweta Iverson MD at [facility] Right: Femur DEPUY [employer] C1713 212.214 / / Axogen Inc Axoguard 3.5mm 40mm Reinforce Wrap Protector Nerve Porcine [id number] - [id number] Implanted:Qty: 1 on 04/30/2022 by Olivia Baires MD at [facility] [employer] Inc 07/08/2023 [id number] / / [id number] [employer]/Or tho Evos Mini 2.7mm 4.5mm 38mm Self Tap Cortex T8 Screw Bone Sterile [id number] - [id number] Implanted:Qty: 1 on 12/02/2023 by Mariann Dawson MD at [facility] Right: Ankle [employer]/ Ortho [id number] / / [employer]/Or tho Evos Mini 2.7mm 4.5mm 11mm Self Tap Cortex T8 Screw Bone [id number] - [id number] Implanted:Qty: 1 on 12/02/2023 by Mariann Dawson MD at [facility] Right: Ankle [employer]/ Ortho [id number] / / [employer]/Or tho 2.7mm 4.3mm 16mm Self Tap Lock T8 2mm Screw Bone Evos [id number] - [id number] Implanted:Qty: 1 on 12/02/2023 by Mariann Dawson MD at [facility] Right: Ankle [employer]/ Ortho [id number] / / [employer]/Or tho Evos Mini 2.7mm 4.5mm 15mm Self Tap Cortex T8 Screw Bone [id number] - [id number] Implanted:Qty: 1 on 12/02/2023 by Mariann Dawson MD at [facility] Right: Ankle [employer]/ Ortho [id number] / / [employer]/Or tho Evos Mini 2.7mm 4.5mm 10mm Self Tap Cortex T8 Screw Bone [id number] - [id number] Implanted:Qty: 1 on 12/02/2023 by Mariann Dawson MD at [facility] Right: Ankle [employer]/ Ortho [id number] / / [employer]/Or tho Evos Mini 2.7mm 4.5mm 12mm Self Tap Cortex T8 Screw Bone [id number] - [id number] Implanted:Qty: 1 on 12/02/2023 by Mariann Dawson MD at [facility] Right: Ankle [employer]/ Ortho [id number] / / [employer]/Or tho Evos 3.5mm 70mm Self Tap Cortex Screw Bone Sterile [id number] - [id number] Implanted:Qty: 1 on 12/02/2023 by Mariann Dawson MD at [facility] Right: Ankle [employer]/ Ortho [id number] / / [employer]/Or tho Evos 3.5mm 12mm Self Tap Cortex Screw Bone Sterile [id number] - [id number] Implanted:Qty: 3 on 12/02/2023 by Mariann Dawson MD at [facility] Right: Ankle [employer]/ Ortho [id number] / / [employer]/Or tho Evos 3.5mm 36mm Self Tap Cortex Screw Bone Sterile [id number] - [id number] Implanted:Qty: 1 on 12/02/2023 by Mariann Dawson MD at [facility] Right: Ankle [employer]/ Ortho [id number] / / [employer]/Or tho Evos 3.5mm 42mm Self Tap Cortex Screw Bone Sterile [id number] - [id number] Implanted:Qty: 1 on 12/02/2023 by Mariann Dawson MD at [facility] Right: Ankle [employer]/ Ortho [id number] / / M[employer]/Or tho Evos 3.5mm 38mm Self Tap Cortex Screw Bone Sterile [id number] - [id number] Implanted:Qty: 1 on 12/02/2023 by Mariann Dawson MD at [facility] Right: Ankle [employer]/ Ortho [id number] / / [employer]/Or tho Evos [id number] 16.3x1.7mm 7 Hole Low Profile Variable Angle Lock [id number] - [id number] Implanted:Qty: 1 on 12/02/2023 by Mariann Dawson MD at [facility] Right: Ankle [employer]/ Ortho [id number] / / M[employer]/Or tho Evos 3.5mm 110mm Self Tap Cortex Screw Bone Sterile [id number] - [id number] Implanted:Qty: 1 on 12/02/2023 by Mariann Dawson MD at [facility] Right: Ankle [employer]/ Ortho [id number] / / Procedures Procedure Name Priority Date/Time Associated Diagnosis Comments DIAGNOSTIC MAMMOGRAM BILATERAL W ILAN Routine 03/04/2016 2:04 PM CDT COLONOSCOPY 02/06/2010 12:00 AM CDT from Last 3 Months or Most Recently Relevant to Health Maintenance Results * Diagnostic Mammogram Bilateral W Ilan (03/04/2016 2:04 PM CDT) Anatomical Region Laterality Modality Breast Bilateral Mammography 03/04/2016 2:04 PM CDT Narrative 03/05/2016 8:03 AM CDT Mammogram Performed by: SCREENING MAMM W ILAN BI Acc#: [id number] Screening Mamm Bi Acc#: [id number] DATE OF EXAM: Mar 04 2016 CLINICAL HISTORY: Routine screening, no current complaints. RESULT: Four view screening mammogram is compared to a prior exam dated 03/02/15. There has been no interval change. The breasts are heterogeneously dense. There are no new masses or suspicious microcalcifications. Mild vascular calcification remains present. Tomographic images demonstrate no additional findings. Digital technology was employed plus computer-aided detection software (R2) was utilized in interpretation of these images. This facility utilizes a reminder system to notify patients of yearly mammograms. IMPRESSION: BI RADS CATEGORY 1 NEGATIVE. RECOMMEND ROUTINE FOLLOW UP. Interpreting Physician: DR ANILA CARDENAS M.D. Read on: Mar 04 2016 2:04P Transcribed by: darline On: Mar 04 2016 4:59P Approved Electronically by: DR ANILA CARDENAS M.D. on: Mar 05 2016 8:03A Attending: DR HSWETA ONTIVEROS Requesting: DR SHWETA ONTIVEROS Requesting Attending Attending ID: [id number] Requesting ID: [id number] Report To 1 ID: [id number] Report To 1 Name: DR SHWETA ONTIVEROS Report To 1 FAX: [phone] NextGen Order #: Procedure Note Provider, MD Erica - 09/25/2016 Mammogram Performed by: DR BARRETT MAMM W ILAN BI Acc#: [id number] Screening Mamm Bi Acc#: [id number] DATE OF EXAM: Mar 04 2016 CLINICAL HISTORY: Routine screening, no current complaints. RESULT: Four view screening mammogram is compared to a prior exam dated 03/02/15.There has been no interval change. The breasts are heterogeneouslydense. There are no new masses or suspicious microcalcifications. Mildvascular calcification remains present. Tomographic images demonstrate noadditional findings. Digital technology was employed plus computer-aideddetection software (R2) was utilized in interpretation of these images.This facility utilizes a reminder system to notify patients of yearlymammograms. IMPRESSION: BI RADS CATEGORY 1 NEGATIVE. RECOMMEND ROUTINE FOLLOW UP. Interpreting Physician: DR ANILA CARDENAS M.D. Read on: Mar 04 20162:04P Transcribed by: darline On: Mar 04 2016 4:59P Approved Electronically by: DR ANILA CARDENAS M.D. on: Mar 05 20168:03A Attending: DR SHWETA ONTIVEROS Requesting: DR SHWETA ONTIVEROS Requesting Attending Attending ID: [id number] Requesting ID: [id number] Report To 1 ID: [id number] Report To 1 Name: DR SHWETA ONTIVEROS Report To 1 FAX: [phone] NextGen Order #: us Historical Provider MD MEYER MAMMO PROCEDURES Lauren l Result * COLONOSCOPY (02/06/2010 12:00 AM CDT) Anatomical Region Laterality Modality Other Narrative 02/06/2010 12:00 AM CDT Ordered by an unspecified provider. Procedure Note ProviderErica MD - 02/06/2010 12:00 AM CDT PROCEDURE REPORT Patient: NESTOR REY Account: [id number] Room No: : 1935 Patient Type: OPA Attend.: Edmond Mayes M.D. Admit Date: 02/06/2010 Dict.: Edmond Mayes M.D. Disch. Date: NAME OF PROCEDURE: COLONOSCOPY DATE OF PROCEDURE: 02/06/2010 REFERRED BY: Shweta Ontiveros M.D. PREVIOUS PROCEDURE: Colonoscopy with polyps. X-RAYS: None. HISTORY AND PHYSICAL EXAM: The patient is a 75-year-old white female witha history of adenomatous polyps who returns now for repeat endoscopic evaluation of her colon. She notes no changes in her health, and she is otherwise doing clinically well. Physical exam today is that of a well-developed, well-nourished white female in no acute distress. She is anicteric. Her lungs are clear. Her heart is regular without current JVDor pedal edema. Abdomen is soft and supple without point tenderness or peritoneal signs. There are no obstructive sounds and no succussionsplash. Extremities show no calf pain, cords, or edema. PRE-PROCEDURE DIAGNOSIS: History of adenomatous polyps in a 75-year-old female. ENDOSCOPIST: Edmond Mayes M.D. INSTRUMENT USED: Yu Rong video endoscope. MEDICATIONS: Per Anesthesia. FINDINGS: The colonoscope was introduced per rectum in the left lateral position and passed to the cecum. The patient tolerated the procedurewell. There were no complications. On withdrawal of the colonoscope the mucosa appeared normal with normal vascular pattern. No polyps or masses werenoted in the cecum, right, transverse or left colon. In the rectosigmoid aflat sessile polyp was encountered. This was picked up, hot biopsied and destroyed. The remainder of the rectosigmoid and rectum was normal. Retroflexed view of the internal anal area showed small internalhemorrhoidal tissue. Perianal exam showed evidence of anal stenosis but no otherperianal disease. COMPLICATIONS: None. POST-PROCEDURE DIAGNOSIS: 1. Polyp, distal rectosigmoid, status post hot biopsy anddestruction. 2. Otherwise normal colonoscopy to the cecum. POST-PROCEDURE ORDERS: 1. Post-sedation instructions. 2. High-fiber diet. 3. Check pathology. 4. Follow-up with Dr. Ontiveros. 5. Follow-up in my office otherwise will be on a p.r.n. basis. Edmond Mayes M.D. MIRELA/ TD: 02/06/2010 14:27 CC: Shweta Ontiveros M.D. PROCEDURE REPORT Authenticated by Edmond Mayes MD On 02/09/2010 09:20:31 AM Historical Provider MD ENDOSCOPY PROCEDURES Lauren l Result from Last 3 Months or Most Recently Relevant to Health Maintenance Insurance MEDICARE [facility] [place] MEDICARE [facility] Address: [address] [address] [place] [address] IDPA [facility] MEDICARE SUPPLEMENT [facility] GENERIC MEDICARE [facility] MEDICARE [employer] [facility] MEDICARE SUPPLEMENT Advance Directives For more information, please contact: [phone] Documents on File Type Date Recorded Patient Admission Discharge Rn Expl anation ADVANCE DIRECTIVE 07/24/2023 11:05 PM POWER OF CASING WORKER-FINANCIAL/MEDIC AL ADVANCE DIRECTIVE 07/03/2022 10:31 AM Alex r of Mangle Press Catcher-Financial ADVANCE DIRECTIVE 05/03/2022 10:06 AM Ottoniel er of Mangle Press Catcher-Medical ADVANCE DIRECTIVE 07/23/2018 9:35 AM Power of Mangle Press Catcher ADVANCE DIRECTIVE 07/23/2018 9:35 AM ADVANCE DIRECTIVE 07/23/2018 9:35 AM * Full Code (Latest Code Status on File) Date Activated Date Inactivated Comments 11/29/2023 1:40 PM 12/05/2023 11:18 PM * Full Code Date Activated Date Inactivated Comments 07/08/2023 5:38 PM 07/22/2023 8:24 PM * Full Code Date Activated Date Inactivated Comments 07/08/2023 1:46 AM 07/08/2023 5:38 PM * Full Code Date Activated Date Inactivated Comments 04/11/2023 7:19 PM 04/15/2023 8:19 PM * Full Code Date Activated Date Inactivated Comments 11/13/2020 12:24 AM 11/13/2020 10:47 PM Healthcare Agents on File Name Relationship Healthcare Agent Relationshi p Communication Theresa Kyra Daughter Health Care Agent Care Teams Cable Installation Technician Relationship Specialty Start Date End Date Shweta Ontiveros MD [address] [place] [address] DR T[address] [place] [id number] PCP - General Internal Medicine 05/01/22
--- OUTSIDE RECORDS SUMMARY | 2024-07-03 10:08 | XMS_ITS | Encounter Summary ---
Author Organization [facility] Address [address] [place] [address] Phone Care Team Providers Care Tutoring Manager Name Role Phone Lane Ontiveros MD Primary Care Provider Encounter Details Date Type Department Care Team (Late st Contact Info) Description 05/13/2023 Nursing Facility [facility] [address] [place] [id number] Sancho Sampson, PAC [address] [place] [address] [id number] Social History Tobacco Use Types Packs/Day Years Used Date Smoking Tobacco: Never Assessed Comments Unknown Sex and Gender Information Value Date Recorded Sex Assigned at Not on file Legal Sex Female 5:27 PM CDT Gender Identity Not on file Sexual Orientation Not on file documented as of this encounter Progress Notes * Sancho Sampson, TOOTIE - 05/13/2023 1:15 PM CST [facility] PROGRESS NOTE Maria Ines Karyn Jacobs is a 88 y.o. female at [facility] for rehabilitation. Prior to coming to rehabilitation facility patient was hospitalized at [facility] from04/11/2023 through 04/15/2023 for lumbar compression fracture which was treated conservatively. Subjective: Interval History: I am seeing patient for a skilled visit. She is lying comfortably in bed. Says that she is feeling ???better?? . No acute symptoms or concerns this time. Back pain continues to improve. Still with some knee pain intermittently. Feels like therapy is going well otherwise. Nursing staff with no concerns about the [...] None Assessment/Plan: Generalized weakness and deconditioning Receiving alf care and physical therapy rehabilitation 05/13/2023 improving Lumbar compression fracture Conservative management with p.r.n. pain medications and therapy Improving Right 1st metatarsal fracture Had ortho follow-up on 05/07/2023 - cast removed that point Constipation Continue daily MiraLax and Colace Well controlled Right knee osteoarthritis 05/08: Four-week course of Voltaren gel ordered GERD Continue Pepcid Well controlled Other chronic medical conditions include depression, anxiety, hypothyroidism, overactive bladder, glaucoma Stable Continue home regimen VTE Prophylaxis: ] Activity I discussed advanced care planning with this patient. This note was dictated using M*Modal fluency dictation system and there may be errors in manager line. Despite proof reading the note, there may be mistakes and I apologize for those. By: TOOTIE Vaughn, 05/13/2023 1:15 PM DIGITAL PUBLISHING SPECIALIST TAL PUBLISHING SPECIALIST documented in this encounter Plan of Treatment Not on file documented as of this encounter Visit Diagnoses Not on filedocumented in this encounter Care Teams Tutoring Manager Relationship Specialty Start Date End Date Lane Ontiveros MD [address] [facility] [address] T[address] [place] [id number] PCP - General Internal Medicine 10/08/18 documented as of this encounter
--- OUTSIDE RECORDS SUMMARY | 2024-07-03 10:08 | XMS_ITS | Encounter Summary ---
Author Organization [facility] Address [address] [place] [address] Phone Care Team Providers Care Utilization Review Rn Name Role Phone Lane Ontiveros MD Primary Care Provider Encounter Details Date Type Department Care Team (Late st Contact Info) Description 04/22/2023 Nursing Facility [facility] [address] [place] [phone] Sancho Sampson, PAC [address] [place] [id number] Social History Tobacco Use Types Packs/Day Years Used Date Smoking Tobacco: Never Assessed Comments Unknown Sex and Gender Information Value Date Recorded Sex Assigned at Not on file Legal Sex Female 5:27 PM CDT Gender Identity Not on file Sexual Orientation Not on file documented as of this encounter Progress Notes * Sancho Sampson, TOOTIE - 04/22/2023 12:08 PM CST [facility] PROGRESS NOTE Maria Ines Karyn Jacobs is a 88 y.o. female at [facility] for rehabilitation. Prior to coming to rehabilitation facility patient was hospitalized at [facility] from04/11/2023 through 04/15/2023 for lumbar compression fracture which was treated conservatively. Subjective: Interval History: I am seeing patient for a skilled visit. She is sitting comfortably in her chair. Says that her back is ???sore?? . Says she prefers the Tylenol because she tolerates it well and it seems to control her pain. The Percocet makes her sleepy so she avoids that. Otherwise she is feeling ???okay ankle. No constipation or any other concerns at this time. Nursing staff with no concerns about the [...] deformities, joint mobility appears intact, no clubbing - R hand in cast Neuro: Non-focal, CN intact, sensory and motor intact Psychological: alert and oriented X3, appropriate mood and affect, Intact judgement and memory Lab Results: 04/14/2023 upon discharge from hospital, CBC with hemoglobin 11.0, WBC of 12.3 otherwise unremarkable. On 04/11 her CMP had albumin of 3.3 and was otherwise unremarkable. Imaging: None Assessment/Plan: Generalized weakness and deconditioning Receiving care home care and physical therapy rehabilitation Lumbar compression fracture Conservative management with p.r.n. pain medications and therapy Right 1st metatarsal fracture Cast in place Has ortho follow-up on 05/07/2023 Constipation Continue daily MiraLax Well controlled GERD Continue Pepcid Well controlled Other chronic medical conditions include depression, anxiety, hypothyroidism, overactive bladder, glaucoma Stable Continue home regimen VTE Prophylaxis: ] Activity I discussed advanced care planning with this patient. This note was dictated using M*Modal fluency dictation system and there may be errors in hand tile maker. Despite proof reading the note, there may be mistakes and I apologize for those. By: Sancho Sampson, PAC, 04/22/2023 12:15 PM METER SHOP SUPERVISOR R SHOP SUPERVISOR documented in this encounter Plan of Treatment Not on file documented as of this encounter Visit Diagnoses Not on filedocumented in this encounter Care Teams Utilization Review Rn Relationship Specialty Start Date End Date Lane Ontiveros MD [address] [place] [address] DR [address] [place] [id number] PCP - General Internal Medicine 10/08/18 documented as of this encounter
--- OUTSIDE RECORDS SUMMARY | 2024-07-03 10:08 | XMS_ITS | Encounter Summary ---
Author Organization [facility] Address [address] [address] Care Team Providers Care Technical Trainer Name Role Phone Lane Ontiveros MD Primary Care Provider Lane Ontiveros MD Primary Care Provider Stanley Llamas ROTOR BALANCER Unavailable Unavailabl Micheline Merino YOUTH CARE SPECIALIST Unavailable Unavailabl e Maryam Pena Unavailable [phone] Kelly Huber RN Unavailable [phone] Lissy Rocha ROTOR BALANCER Unavailable Lissy Rocha ROTOR BALANCER Unavailable Lane Ontiveros MD Primary Care Provider Reason for Referral * Diagnostic Imaging (Routine) - Closed Specialty Diagnoses / Procedures Referred By Contjosephine t Referred To Contact Procedures Dexa Axial Skeleton Bone Density [address] Ontiveros MD Phone: tel: fax: [facility] Referral ID Status Reason Start Date Expiration Date Visits Re quested Visits Authorized [id number] Closed 03/03/2019 09/11/2020 1 1 HER TOGGLER Encounter Details Date Type Department Care Team (Late st Contact Info) Description 07/19/2010 Orders Only [facility] Health Information Management [address] [place] [address] Lane Ontiveros MD [address] [place] [address] [address] [place] [id number] Social History Tobacco Use Types Packs/Day Years Used Date Smoking Tobacco: Heavy Smoker Comments:Smoking History Pac ks/day: 0.5 Packs Comments Unknown Sex and Gender Information Value Date Recorded Sex Assigned at Not on file Legal Sex Female 11:52 PM LEATHER TOGGLER Gender Identity Not on file Sexual Orientation Not on file documented as of this encounter Plan of Treatment Not on file documented as of this encounter Procedures Procedure Name Priority Date/Time Associated Diagnosis Comments DEXA AXIAL SKELETON BONE DENSITY 1 OR MORE SITES Schedule Routine, Read Routine (OP Routine) 07/19/2010 documented in this encounter Results * Dexa Axial Skeleton Bone Density 1 or 2 Site (07/19/2010) Anatomical Region Laterality Modality Body N/A Radiographic Priya ging Lane Ontiveros MD IMG DXA PROCEDURES Lauren l Result documented in this encounter Visit Diagnoses Not on filedocumented in this encounter Additional Health Concerns Infection Onset Date Last Indicated Resolved Time COVID19 01/28/2022 01/28/2022 02/07/2022 3:05 AM CDT COVID: Recovered Comment:Added based on recent COVID infection. 02/07/2022 02/07/2022 06/07/2022 3:[address] COVID: Suspected 12/01/2023 12/01/2023 12/01/2023 10:16 AM CDT documented as of this encounter Care Teams Technical Trainer Relationship Specialty Start Date End Date Lane Ontiveros MD PCP - General 08/16/16 04/30/22 Lane Ontiveros MD PCP - General 08/02/08 08/15/16 Lane Ontiveros MD [address] [facility] [address] [place] [address] PCP - General Internal Medicine 05/01/22 Stanley Llamas LCSW Boiler Technician 07/10/18 07/12/18 Micheline Salomon LPN Care Manager 07/14/18 09/13/18 Maryam Pena [address] [facility] [address] [place] [address] ACO Care Dismantler 04/26/19 04/26/19 Kelly Huber, RN [address] [place] [address] [address] [place] [address] Clutch Inspector 11/14/20 01/15/21 Lissy Rocha LCSW [address] [place] [address] [place] [id number] Boiler Technician 07/30/21 09/09/21 Lissy Rocha LCSW [address] [place] [address] [place] [id number] Boiler Technician 10/26/21 11/19/21 documented as of this encounter
--- OUTSIDE RECORDS SUMMARY | 2024-07-03 10:08 | XMS_ITS | Encounter Summary ---
Author Organization [facility] Address [address] [facility] [place] [address] Phone Care Team Providers Care Feed Research Technician Name Role Phone Lane Ontiveros MD Primary Care Provider Encounter Details Date Type Department Care Team (Late st Contact Info) Description 04/25/2023 Nursing Facility [facility] [address] [place] [phone] Sancho Sampson, PAC [address] [place] [address] [phone] Social History Tobacco Use Types Packs/Day Years Used Date Smoking Tobacco: Never Assessed Comments Unknown Sex and Gender Information Value Date Recorded Sex Assigned at Not on file Legal Sex Female 5:27 PM CDT Gender Identity Not on file Sexual Orientation Not on file documented as of this encounter Progress Notes * Sancho Sampson PAC - 04/25/2023 11:56 AM CST [facility] PROGRESS NOTE Maria Ines Donovans is a 88 y.o. female at [facility] for rehabilitation. Prior to coming to rehabilitation facility patient was hospitalized at [facility] from04/11/2023 through 04/15/2023 for lumbar compression fracture which was treated conservatively. Subjective: Interval History: I am seeing patient for a skilled visit. She is sitting comfortably in her chair. Says that she is feeling ???fine?? . Still having back pain but is tolerable. Is feeling constipated, had a bowel movement maybe 3 or 4 days ago. No nausea or vomiting. I asked the nurse to give an extra dose of MiraLax today. Feels like things are going well otherwise. Nursing staff with no concerns about the patient. Therapy says she is improving. Review of Systems: A 14 point comprehensive [...] None Assessment/Plan: Generalized weakness and deconditioning Receiving intermediate care and physical therapy rehabilitation 04/25/2023 improving Lumbar compression fracture Conservative management with p.r.n. pain medications and therapy Right 1st metatarsal fracture Cast in place Has ortho follow-up on 05/07/2023 Constipation Continue daily MiraLax 04/25: Not well controlled. Gave an extra dose of MiraLax in white on daily Colace GERD Continue Pepcid Well controlled Other chronic medical conditions include depression, anxiety, hypothyroidism, overactive bladder, glaucoma Stable Continue home regimen VTE Prophylaxis: ] Activity I discussed advanced care planning with this patient. This note was dictated using M*Modal fluency dictation system and there may be errors in sales agent pest control service. Despite proof reading the note, there may be mistakes and I apologize for those. By: Sancho Sampson, PAC, 04/25/2023 11:56 AM BRICK SIDING APPLICATOR K SIDING APPLICATOR documented in this encounter Plan of Treatment Not on file documented as of this encounter Visit Diagnoses Not on filedocumented in this encounter Care Teams Feed Research Technician Relationship Specialty Start Date End Date Lane Ontiveros MD [address] [facility] [address] [place] [id number] PCP - General Internal Medicine 10/08/18 documented as of this encounter
--- OUTSIDE RECORDS SUMMARY | 2024-07-03 10:08 | XMS_ITS | Encounter Summary ---
Author Organization [facility] Address [address] [place] [address] Phone Care Team Providers Care Stone Mill Operator Name Role Phone Lane Ontiveros MD Primary Care Provider Lissy Rocha CENTRAL STERILE TECHNICIAN Unavailable [phone] Lane Ontiveros MD Primary Care Provider Encounter Details Date Type Department Care Team (Late st Contact Info) Description 11/12/2021 Telephone [facility] [place] [facility] [address] [place] [address] [address] [place] [address] Chanda Renteria CMA Social History Tobacco Use Types Packs/Day Years Used Date Smoking Tobacco: Former Smokeless Tobacco: Never Comments:quit years ago Alcohol Use Standard Drinks/Week Comments No 0 (1 standard drink = 0.6 oz pur e alcohol) Social Connection and Isolat ion Panel [NHANES] Answer Date Recorded In a typical week, how many times do you talk on the phone with family, friends, or neighbors? More than three times a week 07/30/2021 How often do you get togethe r with friends or relatives? More than three times a week 07/30/2021 How often do you attend chur ch or scientologist services? Never 07/30/2021 Do you belong to any clubs o r organizations such as worship groups, unions, fraternal or athletic groups, or school groups? No 07/30/2021 How often do you attend meet ings of the clubs or organizations you belong to? Never 07/30/2021 Are you , , di vorced, , never , or living with a partner? 07/30/2021 AUDIT-C Answer Date Recorded Q1: How often do you have a drink containing alc ohol? Never 10/24/2021 Average Number of Drinks Not on file 022 Frequency of Binge Drinking Not on file 12/2021 Overall Financial Resource Strain (CARDIA) Answe r Date Recorded How hard is it for you to pa y for the very basics like food, housing, medical care, and heating? Not very hard 07/30/2021 PHQ-2 Answer Date Recorded PHQ-2 Total Score (If total score is 3 or more points, staff should administer the PHQ-9) 4 10/16/2021 Hunger Vital Sign Answer Date Recorded Within the past 12 months, y ou worried that your food would run out before you got the money to buy more. Never true 07/31/19 22 Within the past 12 months, t he food you bought just didn't last and you didn't have money to get more. Never true 07/30/2021 PRAPARE - Transportation Answer Date Re corded In the past 12 months, has l ack of transportation kept you from medical appointments or from getting medications? No 07/17 In the past 12 months, has l ack of transportation kept you from meetings, work, or from getting things needed for daily living? No 07/30/2021 Housing Stability Vital Sign Answer Timothy e Recorded In the last 12 months, was t here a time when you were not able to pay the mortgage or rent on time? No 07/30/2021 In the last 12 months, how many places have you lived? 1 07/30/2021 In the last 12 months, was t here a time when you did not have a steady place to sleep or slept in a fpc (including now)? No 07/30/2021 Comments No Sex and Gender Information Value Date Recorded Sex Assigned at Not on file Legal Sex Female 11:52 PM SUPERVISOR CLAM BED Gender Identity Not on file Sexual Orientation [...] documented as of this encounter Care Teams Stone Mill Operator Relationship Specialty Start Date End Date Lane Ontiveros MD PCP - General 08/16/16 04/30/22 Lane Ontiveros MD [address] [place] [address] [address] PCP - General Internal Medicine 05/01/22 Lissy Rocha, [address] [place] [address] Concrete Gun Operator 10/26/21 11/19/21 documented as of this encounter
--- OUTSIDE RECORDS SUMMARY | 2024-07-03 10:08 | XMS_ITS | Clinical Summary ---
Author Organization [facility] Address [address] [place] [address] Phone Care Team Providers Care Agricultural Systems Specialist Name Role Phone Lane Ontiveros MD Primary Care Provider Allergies Active Allergy Reactions Criticality Noted Date Comments Iodine Rash Low 10/10/2018 Lactose Intolerance (Gi) Diarrhea Low 10/10/2018 Sulfasalazine Rash High 10/10/2018 Medications ergocalciferol (VITAMIN D) 58530 UNIT Capsule Take 50,000 Units by mouth daily. Active omeprazole (PRILOSEC) 20 MG CAPSULE DELAYED RELEASE Take 20 mg by mouth daily. Active Levothyroxine Sodium 88 MCG Capsule Take 88 mcg by mouth daily. Active Benzonatate 200 MG Capsule Take 200 mg by mouth as needed for Cough. Active traMADol (ULTRAM) 50 MG Tablet Take 50 mg by mouth every 6 hours as needed for Mild or more severe pain. Active DULoxetine (CYMBALTA) [address] Particles Take 60 mg by mouth daily. Active ALPRAZolam (XANAX) 0.25 MG Tablet Take 0.25 mg by mouth 3 times daily as needed for Anxiety. Active diphenoxylate-at ropine (LOMOTIL) 2.5-0.025 MG Tablet Take 1 Tab by mouth 4 times daily as needed for Diarrhea. Active Ibuprofen (ADVIL) 200 MG Capsule Take 200 mg by mouth as needed for Pain. Active Ascorbic Acid (VITAMIN C) 500 MG Chewable Tablet Take 500 mg by mouth daily. Active Social History Tobacco Use Types Packs/Day Years Used Date Smoking Tobacco: Never Assessed Comments Unknown Sex and Gender Information Value Date Recorded Sex Assigned at Not on file Legal Sex Female 5:27 PM CDT Gender Identity Not on file Sexual Orientation Not on file Last Filed Vital Signs Vital Sign Reading Time Taken Comments Blood Pressure 130/60 12/03/2018 1:15 PM CDT Pulse 78 12/03/2018 1:15 PM CDT Temperature 36.9 C (98.4 F) 12/03/2018 1:15 PM CDT Respiratory Rate 16 12/03/2018 1:15 PM CDT Oxygen Saturation 95% 12/03/2018 1:15 PM CDT Inhaled Oxygen Concentration - - Weight 80.7 kg (178 lb) 12/02/2018 12:35 PM CDT Height 157.5 cm (5' 2 ) 10/10/2018 11:43 AM CDT Body Mass Index 32.56 10/10/2018 11:43 AM CDT Plan of Treatment Health Maintenance Due Date Last Done Comments DEXA Bone Density 1935 Hepatitis C Virus (HCV) Screening 1935 TdaP Immunization 1935 Pneumococcal Immunization (5 0+ years) (1 of 1 - PCV) 1985 Zoster Immunization (1 of 2) 1985 Respiratory Syncytial Virus (RSV) Immunization (Adult) (1 - 1-dose 75+ series) 2010 Influenza Immunization (#1) 2024 SARS-COV-2 Immunization ( season) 2024 08/17/2020, 07/27/2020 Hepatitis B Immunization Aged Out No longer eligible based on patient's age to complete this topic Meningococcal Immunization (ACWY) Aged Out No longer eligible b ased on patient's age to complete this topic Rotavirus Immunization Aged Out No lo nger eligible based on patient's age to complete this topic Insurance MEDICARE Advance Directives Documents on File Type Date Recorded Patient Pr Intern Expl anation Power of Rehabilitation Medicine Physician for Health Care 10/15/2018 11:48 AM POA 07/14/09 * Full Code (Latest Code Status on File) Date Activated Date Inactivated Comments 10/21/2018 5:11 PM Care Teams Agricultural Systems Specialist Relationship Specialty Start Date End Date Lane Ontiveros MD [address] [place] [address] [address] [place] [id number] PCP - General Internal Medicine 10/08/18
--- OUTSIDE RECORDS SUMMARY | 2024-07-03 10:08 | XMS_ITS | Encounter Summary ---
Author Organization [facility] Address [address] [place] [address] Phone Care Team Providers Care Green Meat Grader Name Role Phone Lane Ontiveros MD Primary Care Provider Encounter Details Date Type Department Care Team (Late st Contact Info) Description 05/26/2023 Nursing Facility [facility] [address] [place] [phone] Sancho Sampson, PAC [address] [place] [id number] Social History Tobacco Use Types Packs/Day Years Used Date Smoking Tobacco: Never Assessed Comments Unknown Sex and Gender Information Value Date Recorded Sex Assigned at Not on file Legal Sex Female 5:27 PM CDT Gender Identity Not on file Sexual Orientation Not on file documented as of this encounter Progress Notes * Sancho Sampson, TOOTIE - 05/26/2023 4:05 PM CST [facility] PROGRESS NOTE Maria Ines Karyn Jacobs is a 88 y.o. female at [facility] for rehabilitation. Prior to coming to rehabilitation facility patient was hospitalized at [facility] from04/11/2023 through 04/15/2023 for lumbar compression fracture which was treated conservatively. Subjective: Interval History: I am seeing patient for a skilled visit. She is sitting comfortably in her chair. Says she feels ???good?? . No acute symptoms or concerns this time. Feels like therapy is going well. She is planning for discharge to home later this week which she is comfortable with. Has family close by and also has a caregiver. Nursing staff with no concerns about the [...] None Assessment/Plan: Generalized weakness and deconditioning Receiving snf care and physical therapy rehabilitation 05/26/2023 improving Lumbar compression fracture Conservative management with p.r.n. pain medications and therapy 05/26/2023 Improving Right 1st metatarsal fracture Had ortho follow-up on 05/07/2023 - cast removed that point Healed Constipation Continue MiraLax and Colace Well controlled Right knee osteoarthritis 05/08: Four-week course of Voltaren gel ordered 05/22: Improving GERD Continue Pepcid Well controlled Other chronic medical conditions include depression, anxiety, hypothyroidism, overactive bladder, glaucoma Stable Continue home regimen VTE Prophylaxis: ] Activity I discussed advanced care planning with this patient. Disposition: Planning on discharge home on 05/29/2023 This note was dictated using M*Modal fluency dictation system and there may be errors in university intern. Despite proof reading the note, there may be mistakes and I apologize for those. By: Sancho Sampson, PAC, 05/26/2023 4:06 PM SHIRT PRESSER T PRESSER documented in this encounter Plan of Treatment Not on file documented as of this encounter Visit Diagnoses Not on filedocumented in this encounter Care Teams Green Meat Grader Relationship Specialty Start Date End Date Lane Ontiveros MD [address] [facility] [address] [place] [id number] PCP - General Internal Medicine 10/08/18 documented as of this encounter
--- OUTSIDE RECORDS SUMMARY | 2024-07-03 10:08 | XMS_ITS | Encounter Summary ---
Author Organization [facility] Address [address] [place] [address] Phone Care Team Providers Care Spike Machine Operator Name Role Phone Shweta Jimenez MD Primary Care Provider Encounter Details Date Type Department Care Team (Late st Contact Info) Description 05/29/2023 Nursing Facility [facility] [address] [place] [phone] Sancho Sampson PAC [address] [place] [id number] Social History Tobacco Use Types Packs/Day Years Used Date Smoking Tobacco: Never Assessed Comments Unknown Sex and Gender Information Value Date Recorded Sex Assigned at Not on file Legal Sex Female 5:27 PM CDT Gender Identity Not on file Sexual Orientation Not on file documented as of this encounter Progress Notes * Sancho Sampson PAC - 05/29/2023 2:17 PM CST [facility] DISCHARGE SUMMARY Name: Maria Ines Jacobs Age: 88 y.o. : 1935 Attending Physician: No att. providers found Admission Date/Time 04/07/2023 Expected Discharge Date: 05/29/2023 Primary Care Physician: SHWETA JIMENEZ MD Discharging Provider: TOOTIE Vaughn INSTRUCTIONS FOR PHYSICIANS ON FOLLOW UP AFTER DISCHARGE: Follow-up with PCP in 1-2 weeks Discharge Instructions: Discharge Condition: improved Disposition: Home Diet: Regular Diet Activity: activity as tolerated Discharge Diagnoses: Generalized weakness and deconditioning, lumbar compression fracture, right 1st metatarsal fracture, constipation, osteoarthritis, GERD, depression, anxiety, hypothyroidism, overactive bladder, glaucoma Admitting Diagnoses: Generalized weakness and deconditioning, lumbar compression fracture, right 1st metatarsal fracture, constipation, osteoarthritis, GERD, depression, anxiety, hypothyroidism, overactive bladder, glaucoma SKILLED CARE COURSE: Maria Ines Jacobs was [facility] to [facility] for [facility] care [facility]. Prior to coming to rehabilitation facility patient was hospitalized at [facility] from04/11/2023 through 04/15/2023 for lumbar compression fracture which was treated conservatively. While at the rehabilitation facility, the patient received [facility] care and physical therapy rehabilitation. The patient has done well with their rehabilitation and has regained enough strength and ambulationthat it is felt that she can safely be discharged. Initially her rehabilitation was limited by her pain in her back and also her metatarsal fracture. Both time these have healed and her pain is much less and is now. She was followed by Ortho during her stay in the facility. She did end up testing positive for COVID-19 while the facility but fortunately was asymptomatic the entire time. Otherwise her stay in the facility went well. Today she is sitting comfortably in her chair. Says she feels ???good?? . She is a little anxious about going home considering she lives by herself. She has a caregiver who comes in I have days a week during the work week. In the during the weekends she has children that live close by that help heraround the house. Exam Day of Discharge: Vital Signs: Recent vital signs were reviewed [...] and affect, Intact judgement and memory Lab / Imaging Review: Lab Results: 04/14/2023 upon discharge from hospital, CBC with hemoglobin 11.0, WBC of 12.3 otherwise unremarkable. On 04/11 her CMP had albumin of 3.3 and was otherwise unremarkable. Imaging: None DISCHARGE PLAN: She will be going home later today. Has good social support system. Home health will be ordered to continue therapy at home. Understands to continue all current medications as directed and follow up with PCP in 1-2 weeks. I have spent time coordinating care for this [facility] facility discharge: Greater than 30 minutes spent in coordinating care This note was dictated using [employer] fluency dictation system and there may be errors in wellness guide. Despite proof reading the note, there may be mistakes and I apologize for those. Signed: TOOTIE Vaughn, 05/29/2023, 2:18 PM MERCHANDISE DISTRIBUTOR HANDISE DISTRIBUTOR documented in this encounter Plan of Treatment Not on file documented as of this encounter Visit Diagnoses Not on filedocumented in this encounter Care Teams Spike Machine Operator Relationship Specialty Start Date End Date Shweta Jimenez MD [address] [place] [address] DR T[address] [place] [id number] PCP - General Internal Medicine 10/08/18 documented as of this encounter
--- OUTSIDE RECORDS SUMMARY | 2024-07-03 10:08 | XMS_ITS | Referral Summary ---
Author Organization [facility] Address [address] [place] [address] Care Team Providers Care Quality Control Microbiologist Name Role Phone Shweta Ontiveros MD Primary [...] the rectum 3 Active vit A,C and M-lfthvu-ebdsapz s (Ocuvite with Lutein) 300 mcg-200 mg-27 [...] 08/25/2023 NSTEMI (non-ST elevated myocardial infarction) ( [facility]) 08/25/2023 HFrEF (heart failure with re duced ejection fraction) ([facility]) 08/25/2023 Assessment & Plan (12/05/2023 2:19 PM CDT): #HFrEF - Follows with Dr. Wolfe ([facility]) - Most recent TTE: 07/11/23, LVEF [...] 2-4 weeks fo rdischarge Discharge infom from [facility] cardiology provided as below Outpatient Follow-Up Plan: Follow-up with [facility]iology:General Cardiology in 2-4 weeks. Please call to make an appointment when the patient is ready for discharge. If the appointment has not been scheduled by the time of discharge, please provide the following information to the patient on the discharge instructions: If you have not received information within a week of discharge regarding a follow-up appointment with [facility], please contact our office at . Thank you for involving us in the care of this patient. If you have any additional questions or concerns during this admission, please contact the respective cardiology consult team listed on [employer] [place], from Friday-Friday, 7:30 am - 4:30 pm, you may reach the Cardiology Consult Line at . Fall 08/25/2023 Chronic deep vein thrombosis (DVT) of left upper extremity 07/15/2023 Assessment & Plan (07/15/2023 11:01 AM SCREEN MAKER): - Currently on heparin gtt - Could consider stopping given chronicity of DVT Shock ([facility]) 07/10/2023 Assessment & Plan (07/15/2023 6:29 AM SCREEN MAKER): - 07/09 Transferred to SICU for persistent [...] 07/09/2023 Assessment & Plan (07/14/2023 5:41 AM SCREEN MAKER): - Cr 0.65 on admission - Cr elevated, now downtrending. Peak around 2 - Monitor urine output, gentle IVF hydration - Follow BMP daily Closed fracture of proximal end of right tibia, unspecified fracture morphology, initial encounter 07/08/2023 Fracture of right tibia and fibula 07/08/2023 Assessment & Plan (07/08/2023 3:26 PM SCREEN MAKER): - Orthopedics consult - Splinted in ED - s/p OR 07/08 for IMN right tibia - Ancef x 24h post op - WBAT RLE - Pain control - PT/OT Syncope 07/08/2023 Assessment & Plan (07/11/2023 7:43 AM SCREEN MAKER): - Frequent falls recently reported by patient's daughter - Telemetry monitoring - EKG with left BBB (known history) - See shock below Delirium 07/08/2023 Assessment & Plan (07/13/2023 5:19 PM SCREEN MAKER): - Delirium precautions - Ramelteon HS Anxiety 07/08/2023 Assessment & Plan (11/29/2023 1:58 PM CDT): #Panic attacks - Intermittent 1L 20- 25min of O2 at home about 1x/week when feels anxious - continue home bupropion and duloxetine Assessment & Plan (07/15/2023 6:25 AM SCREEN MAKER): - Continue home duloxetine, bupropion, mirtazapine - Holding home Xanax - Atarax daily PRN Depression 07/08/2023 Assessment & Plan (07/08/2023 11:56 AM SCREEN MAKER): SEE ANXIETY Overactive bladder 07/08/2023 Assessment & Plan (07/13/2023 5:20 PM SCREEN MAKER): - Continue home Myrbetriq (temporarily held) Acute pain due to trauma 07/08/2023 Assessment & Plan (12/02/2023 4:40 PM CDT): - Tylenol 1000mg Q6H - Oxycodone 5mg Q4H PRN - Robaxin 500mg TID PRN Assessment & Plan (07/14/2023 5:41 AM SCREEN MAKER): - tylenol 1000 mg q6h PRN - [...] 12/04 Assessment & Plan (07/15/2023 6:27 AM SCREEN MAKER): - 07/08: Pending OR with orthopedics - [...] 04/11/2023 Assessment & Plan (07/15/2023 6:26 AM SCREEN MAKER): - NSGY consult - Non operative management -TLSO when OOB - Still need upright XR in TLSO when able, call NSGY to review - Q4H neuro checks - Outpatient follow up in 6 weeks with NSGY Nerve compression 04/30/2022 History of 2019 novel coronavirus disease (COVID -19) 02/26/2022 Right wrist drop 01/02/2022 Overview (01/02/2022): Added automatically from request for surgery [id number] Injury of right posterior interosseous nerve Overview (01/02/2022): Added automatically from request for surgery [id number] Radial nerve palsy, right 12/17/2021 Closed fracture [...] Daughter and son-in-law help and 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 Does not manage her own medications - PT/OT Assessment & Plan (08/02/2021 1:56 PM CDT): Mechanical fall CT head and neck negative advil prn for headache w/ food F/u prn Arthritis of knee, left 02/27/2021 Elevated d-dimer 11/13/2020 Left bundle branch block (LB BB) determined by electrocardiography 11/13/2020 Medicare annual wellness visit, subsequent 03/22 Assessment & Plan (03/22/2019 11:00 AM SCREEN MAKER): Self assessment detail includes: No current home safety or functional concerns at this time per assessment scales. Hearing and vision intact. Admits to use smoke and carbon monoxide alarms. The fall risk is minimal. The cognitive screening was negative for dementia, depression anxiety both appear to be stable on current medication. Pt has a living will and durable power of preforms laminator in place. In regard to social hx- [...] 03/22/2019 Assessment & Plan (03/22/2019 10:58 AM SCREEN MAKER): Decline urologist consultation this point time, stress [...] 08/27/2017 Assessment & Plan (03/22/2019 10:52 AM SCREEN MAKER): Cnt. To see pain management, , for pain management. Cnt. With Cymbalta as prior advised. Multiple-type hyperlipidemia 02/14/2016 Overview (08/23/2016): MIXED HYPERLIPIDEMIA Assessment & Plan (11/29/2023 2:01 PM CDT): - continue home atorvastatin Assessment & Plan (03/22/2019 10:56 AM SCREEN MAKER): Stable with recent labs indicated total cholesterol 172, triglycerides 125, LDL 94, HDL 53. Cnt. Heart healthy diet, mild daily exercise. ASA discussed, but deferred given risks vs benefit. Hypothyroid 02/14/2016 Overview (08/23/2016): HYPOTHYROIDISM NOS Assessment & Plan (11/29/2023 1:59 PM CDT): - continue home synthroid Assessment & Plan (07/08/2023 12:06 PM SCREEN MAKER): - Continue Synthroid Generalized osteoarthritis 10/02/2013 Overview (08/23/2016): GENERAL OSTEOARTHROSIS Gastroesophageal reflux disease 10/02/2013 Overview (08/23/2016): ESOPHAGEAL REFLUX Assessment & Plan (11/29/2023 2:01 PM CDT): - continue home pepcid Age-related osteoporosis with current pathologic al fracture 10/02/2013 Overview (08/23/2016): OSTEOPOROSIS NOS Normocytic anemia Assessment & Plan (03/22/2019 10:52 AM SCREEN MAKER): Anemia secondary to femur fracture in June [...] 022 Fracture of distal end of femur ([facility]) 07/09/2018 07/26/2019 Pain, joint, shoulder, left 09/10/2017 08/27/2021 BMI 30.0-30.9,adult 06/23/2017 12/06/19 23 Assessment & Plan (06/23/2017 2:21 PM SCREEN MAKER): Recommended patient to continue to increase heart healthy diet with adequate fruits, vegetables, and plenty of water along with mild-moderate daily exercise as tolerated. Pleurisy 06/23/2017 09/08/2017 Assessment & Plan (06/23/2017 2:23 PM SCREEN MAKER): Recommended Tescecilia De La Cruz for cough suppression to take 1-2 tabs t.i.d. p.r.n. additionally I advised her she can take plain naproxen only on a p.r.n. basis or Advil she cannot take both. Follow-up in office in 4 days is recommended Acute bronchitis due to othe r specified organisms 06/23/2017 09/08/2017 Assessment & Plan (06/23/2017 2:22 PM SCREEN MAKER): Recommended Levaquin 500 mg once daily for [...] course of 10 days, increased fluids, Mucinex bzwx-guz-fuhmjro for daytime cough and Tessalon Perles for [...] NEC Assessment & Plan (06/23/2017 2:23 PM SCREEN MAKER): Possible COPD exacerbation due to acute bronchitis. Please refer to acute bronchitis plan for management of acute respiratory tract infection Controlled type 2 diabetes sejal fry without complication ([facility]) 05/08/2012 03/10/2017 Overview (08/23/2016): Diabetes Mellitus Type [...] Refused) Pneumococcal Conjugate, Unspecified 08/27/2021(D eferred: Allergy) Social History Tobacco Use Types Packs/Day Years Used Date Smoking Tobacco: Former Cigarettes Smokeless Tobacco: Never Tobacco Cessation:Counseling Given: Not Answered Comments:quit years ago Alcohol Use Standard Drinks/Week Comments No 0 (1 standard drink = 0.6 oz pur e alcohol) [facility] Utilities Answer Date Recorded In the past 12 months has mSchool, [employer], or [employer] threatened to shut off services in your [...] often do you attend chur ch or restorationism services? Never 11/30/2023 Do you belong to any clubs o r organizations such as yarsani groups, unions, fraternal or athletic groups, or [...] place to sleep or slept in a custodial (including now)? No 07/11/2023 Housing Stability Vital Sign Answer Timothy e Recorded In the last 12 months, was t here a time when you were not able to pay the mortgage or rent on time? No 11/30/2023 In the past 12 months, how m any times have you moved where you were living? 0 11/30/2023 At any time in the past [facility], were you homeless or living in a custodial (including now)? No 11/30/2023 Personal Safety Answer Date Recorded Have you ever been in or are you currently in a harmful physical or emotional relationship or is someone making you feel afraid or unsafe? Denies 12/02/2023 Comments No Sex and Gender Information Value Date Recorded Sex Assigned at Not on file Legal Sex Female 11:52 PM SCREEN MAKER Gender Identity Not on file Sexual Orientation [...] 11/29/2023 1:25 PM CDT Plan of Treatment Not on file Medical Devices Implanted Type Area Vessel Operator Device Identifier Shelf Expiration Date Model / Serial / Lot [employer] Chavez Angio-Seal Vip 6fr Closere Device [id number] - [id number] - [id number] Implanted:Qty: 1 on 07/21/2023 by Tc Enriquez MD at [facility] Collagen Left: Common Femoral Artery [employer] Chavez 04/03/2024 [id number] / [id number] / [id number] [employer]Rich[employer]/Or tho Trigen [place]-Nail 8.5mm 33cm Tibia Nail Intramedullary Titanium [id number] - [id number] Implanted:Qty: 1 on 07/08/2023 by Emiliano Wagner MD at [facility] Nail Right: Tibia [employer]/ Ortho [id number] 02/29/2032 [id number] / / [id number] [employer]/Or tho 4.5mm 6.5mm Low Profile Internal Capture Femur Screw Bone Trigen [id number] - [id number] Implanted:Qty: 1 on 07/08/2023 by Emiliano Wagner MD at [facility] Screw Right: Tibia [employer]/ Ortho [id number] 08/21/2031 [id number] / / [id number] [employer]/Or tho 4.5mm 60mm Low Profile Internal Capture Femur Screw Bone Trigen 19608423 - [id number] Implanted:Qty: 1 on 07/08/2023 by Emiliano Wagner MD at [facility] Screw Right: Tibia [employer]/ Ortho [id number] 06/28/2030 [id number] / / [id number] [employer]/Or tho 4.5mm 40mm Low Profile Internal Capture Femur Screw Bone Trigen [id number] - S0 - [id number] Implanted:Qty: 1 on 07/08/2023 by Emiliano Wagner MD at [facility] Screw Right: Tibia [employer]/ Ortho [id number] 01/15/2032 [id number] / 0 / [id number] [employer]/Or tho 4.5mm 32.5mm Low Profile Internal Capture Femur Screw Bone Trigen [id number] - [id number] Implanted:Qty: 1 on 07/08/2023 by Emiliano Wagner MD at [facility] Screw Right: Tibia [employer]/ Ortho [id number] 05/22/2031 [id number] / / [id number] [employer]/Or tho 4.5mm 25mm Low Profile Internal Capture Femur Screw Bone Trigen 30248867 - [id number] Implanted:Qty: 1 on 07/08/2023 by Emiliano Wagner MD at [facility] Screw Right: Tibia [employer]/ Ortho [id number] 08/19/2031 [id number] / / [id number] [employer]/Or tho 5mm 40mm Low Profile Internal Hex Femur Screw Bone Trigen [id number] - S0 - [id number] Implanted:Qty: 1 on 07/08/2023 by Emiliano Wagner MD at [facility] Screw Right: Tibia [employer]/ Ortho [id number] / 0 / 4.5mm Lcp Condylar Plates Implanted:Qty: 1 on 07/10/2018 by Shweta Iverson MD at [facility] Right: Femur DEPUY Pili Pop C1713 222.656 / / Synthes 205.065 5mm 4.4mm 65mm Cannulated Self Tap Self Drill Lock 4mm Full - [id number] Implanted:Qty: 1 on 07/10/2018 by Shweta Iverson MD at [facility] Right: Femur Synthes I 02205.06 5 / / Synthes 02205.075 5mm 4.4mm 75mm Cannulated Self Tap Self Drill Lock 4mm Full - [id number] Implanted:Qty: 2 on 07/10/2018 by Shweta Iverson MD at [facility] Right: Femur Synthes I 02205.07 5 / / Synthes 214.840 4.5mm 8mm 40mm Self Tap Large Hexagonal Socket Cortex Screw Bone - [id number] Implanted:Qty: 1 on 07/10/2018 by Shweta Iverson MD at [facility] Right: Femur Synthes I 214.840 / / 5.0mm Locking Screw, Self-Tapping With T25 Stardrive Recess Implanted:Qty: 1 on 07/10/2018 by Shweta Iverson MD at [facility] Right: Femur DEPUY Pili Pop C1713 212.208 / / Synthes 212.218 5mm 4.4mm 48mm Self Tap Lock Stardrive Conical Head Cortical - [id number] Implanted:Qty: 1 on 07/10/2018 by Shweta Iverson MD at [facility] Right: Femur Framebench C1713 212.218 / / 7.3mm Cannulated Locking Screw Implanted:Qty: 1 on 07/10/2018 by Shweta Iverson MD at [facility] Right: Femur DEPUY Pili Pop C1713 02.207.08 0 / / 5.0mm Locking Screws, Self-Tapping With T25 Stardrive Recess Implanted:Qty: 1 on 07/10/2018 by Shweta Iverson MD at [facility] Right: Femur DEPRe[employer]a Labs13 212.216 / / 5.0mm Locking Screws, Self-Tapping With T25 Stardrive Recess Implanted:Qty: 2 on 07/10/2018 by Shweta Iverson MD at [facility] Right: Femur DEPUY Pili Pop C1713 212.214 / / [employer] Axoguard 3.5mm 40mm Reinforce Wrap Protector Nerve Porcine [id number] - [id number] Implanted:Qty: 1 on 04/30/2022 by Olivia Baires MD at [facility] [employer] 07/08/2023 [id number] / / [id number] [employer]Rich[employer]/Or tho Evos Mini 2.7mm 4.5mm 38mm Self Tap Cortex T8 Screw Bone Sterile [id number] - [id number] Implanted:Qty: 1 on 12/02/2023 by Mariann Dawson MD at [facility] Right: Ankle [employer]/ Ortho [id number] / / [employer]/Or tho Evos Mini 2.7mm 4.5mm 11mm Self Tap Cortex T8 Screw Bone [id number] - [id number] Implanted:Qty: 1 on 12/02/2023 by Mariann Dawson MD at [facility] Right: Ankle [employer]/ Ortho [id number] / / [employer]/Or tho 2.7mm 4.3mm 16mm Self Tap Lock T8 2mm Screw Bone Evos [id number] - [id number] Implanted:Qty: 1 on 12/02/2023 by Mariann Dawson MD at [facility] Right: Ankle [employer]/ Ortho [id number] / / [employer]/Or tho Evos Mini 2.7mm 4.5mm 15mm Self Tap Cortex T8 Screw Bone [id number] - [id number] Implanted:Qty: 1 on 12/02/2023 by Mariann Dawson MD at [facility] Right: Ankle [employer]/ Ortho [id number] / / [employer]/Or tho Evos Mini 2.7mm 4.5mm 10mm Self Tap Cortex T8 Screw Bone 14159379 - [id number] Implanted:Qty: 1 on 12/02/2023 by Mariann Dawson MD at [facility] Right: Ankle [employer]/ Ortho [id number] / / [employer]/Or tho Evos Mini 2.7mm 4.5mm 12mm Self Tap Cortex T8 Screw Bone [id number] - [id number] Implanted:Qty: 1 on 12/02/2023 by Mariann Dawson MD at [facility] Right: Ankle [employer]/ Ortho [id number] / / [employer]/Or tho Evos 3.5mm 70mm Self Tap Cortex Screw Bone Sterile [id number] - [id number] Implanted:Qty: 1 on 12/02/2023 by Mariann Dawson MD at [facility] Right: Ankle [employer]Rich[employer]/ Ortho [id number] / / M[employer]/Or tho Evos 3.5mm 12mm Self Tap Cortex Screw Bone Sterile 47085750 - [id number] Implanted:Qty: 3 on 12/02/2023 by Mariann Dawson MD at [facility] Right: Ankle [employer]/ Ortho [id number] / / M[employer]/Or tho Evos 3.5mm 36mm Self Tap Cortex Screw Bone Sterile 37018648 - [id number] Implanted:Qty: 1 on 12/02/2023 by Mariann Dawson MD at [facility] Right: Ankle [employer]/ Ortho [id number] / / [employer]/Or tho Evos 3.5mm 42mm Self Tap Cortex Screw Bone Sterile 93318532 - [id number] Implanted:Qty: 1 on 12/02/2023 by Mariann Dawson MD at [facility] Right: Ankle [employer]/ Ortho [id number] / / M[employer]Rich[employer]/Or tho Evos 3.5mm 38mm Self Tap Cortex Screw Bone Sterile 16205514 - [id number] Implanted:Qty: 1 on 12/02/2023 by Mariann Dawson MD at [facility] Right: Ankle [employer]/ Ortho [id number] / / M[employer]/Or tho Evos [id number] 16.3x1.7mm 7 Hole Low Profile Variable Angle Lock 81454343 - [id number] Implanted:Qty: 1 on 12/02/2023 by Mariann Dawson MD at [facility] Right: Ankle [employer]/ Ortho [id number] / / M[employer]Rich[employer]/Or tho Evos 3.5mm 110mm Self Tap Cortex Screw Bone Sterile 10940110 - [id number] Implanted:Qty: 1 on 12/02/2023 by Mariann Dawson MD at [facility] Right: Ankle [employer]Rich[employer]/ Ortho [id number] / / Procedures Procedure Name Priority Date/Time [...] by: SCREENING MAMM W ILAN BI Acc#: [id number] Screening Mamm Bi Acc#: [id number] DATE OF EXAM: Mar 04 2016 CLINICAL [...] technology was employed plus computer-aided detection software ([employer]) was utilized in interpretation of these images. This facility utilizes a reminder system to notify patients of yearly mammograms. IMPRESSION: BI RADS CATEGORY 1 NEGATIVE. RECOMMEND ROUTINE FOLLOW UP. Interpreting Physician: DR ANILA CARDENAS M.D. Read on: Mar 04 2016 2:04P Transcribed by: darline On: Mar 04 2016 4:59P Approved Electronically by: DR ANILA CARDENAS M.D. on: Mar 05 2016 8:03A Attending: DR SHWETA ONTIVEROS Requesting: DR SHWETA ONTIVEROS Requesting Attending Attending ID: [id number] Requesting ID: [id number] Report To 1 ID: [id number] Report To 1 Name: DR SHWETA ONTIVEROS Report To 1 FAX: [phone] NextGen Order #: Procedure Note Provider, MD Erica - 09/25/2016 Mammogram Performed by: SCREENING MAMM W ILAN BI Acc#: [id number] Screening Mamm Bi Acc#: [id number] DATE OF EXAM: Mar 04 2016 CLINICAL [...] DR SHWETA ONTIVEROS Requesting Attending Attending ID: [id number] Requesting ID: [id number] Report To 1 ID: [id number] Report To 1 Name: DR SHWETA ONTIVEROS Report To 1 FAX: [phone] NextGen Order #: Historical Provider MD MEYER MAMMO PROCEDURES Lauren l Result * COLONOSCOPY (02/06/2010 12:00 AM CDT) Anatomical Region Laterality Modality Other Narrative 02/06/2010 12:00 AM CDT Ordered by an unspecified provider. Procedure Note ProviderErica MD - 02/06/2010 12:00 AM CDT PROCEDURE REPORT Patient: NESTOR REY Account: [id number] Room No: : 1935 Patient Type: OPA [...] female. ENDOSCOPIST: Edmond Mayes M.D. INSTRUMENT USED: Qovia video endoscope. MEDICATIONS: Per Anesthesia. FINDINGS: The [...] MD On 02/09/2010 09:20:31 AM Historical Provider ENDOSCOPY PROCEDURES Lauren l Result from Last 3 Months or Most Recently Relevant to Health Maintenance Insurance MEDICARE [facility] [place] [address] MEDICARE IDPA [facility] MEDICARE SUPPLEMENT [facility] GENERIC MEDICARE [facility] MEDICARE [facility] MEDICARE SUPPLEMENT Advance Directives For more information, please contact: [phone] Documents on File Type Date Recorded Patient Armhole Raiser Lockstitch Expl anation ADVANCE DIRECTIVE 07/24/2023 11:05 PM POWER OF CREDIT AND LOAN COLLECTIONS SUPERVISOR-FINANCIAL/MEDIC AL ADVANCE DIRECTIVE 07/03/2022 10:31 AM Alex r of Senior Oracle Pl Sql Developer-Financial ADVANCE DIRECTIVE 05/03/2022 10:06 AM Pow er of Senior Oracle Pl Sql Developer-Medical ADVANCE DIRECTIVE 07/23/2018 9:35 AM Power of Senior Oracle Pl Sql Developer ADVANCE DIRECTIVE 07/23/2018 9:35 AM ADVANCE DIRECTIVE [...] Kyra Daughter Health Care Agent Care Teams Quality Control Microbiologist Relationship Specialty Start Date End Date Shweta Ontiveros MD [address] [place] [address] [place] [address] PCP - General Internal Medicine 05/01/22
--- OUTSIDE RECORDS SUMMARY | 2024-07-03 10:08 | XMS_ITS | Encounter Summary ---
Author Organization [facility] Address [address] [place] [address] Phone Care Team Providers Care Undercover Cop Name Role Phone Lane Ontiveros MD Primary Care Provider Encounter Details Date Type Department Care Team (Late st Contact Info) Description 05/22/2023 Nursing Facility [facility] [address] [place] [phone] Sancho Sampson, PAC [address] [place] [id number] Social History Tobacco Use Types Packs/Day Years Used Date Smoking Tobacco: Never Assessed Comments Unknown Sex and Gender Information Value Date Recorded Sex Assigned at Not on file Legal Sex Female 5:27 PM CDT Gender Identity Not on file Sexual Orientation Not on file documented as of this encounter Progress Notes * Sancho Sampson, TOOTIE - 05/22/2023 3:46 PM CST [facility] PROGRESS NOTE Maria Ines Donovans is a 88 y.o. female at [facility] for rehabilitation. Prior to coming to rehabilitation facility patient was hospitalized at [facility] from04/11/2023 through 04/15/2023 for lumbar compression fracture which was treated conservatively. Subjective: Interval History: I am seeing patient for a skilled visit. She is sitting comfortably in her chair. Says she feels ???good?? . No acute symptoms or concerns this time. Back pain and knee pain still present but improving. She likes the Voltaren gel and says that is helping. Feels like therapy is improving but she still needs assistance with some things. Had an insurance cut but she appealed and she won so she is staying for some more therapy which sheis happy about. She wants to get a strong as possible for she goes home where she lives or on. Family does live close by. Nursing staff with no concerns about the [...] None Assessment/Plan: Generalized weakness and deconditioning Receiving detention care and physical therapy rehabilitation 05/22/2023 improving Lumbar compression fracture Conservative management with p.r.n. pain medications and therapy 05/22/2023 Improving Right 1st metatarsal fracture Had ortho [...] advanced care planning with this patient. Disposition: 05/19/2023: Likely discharge later this week. This note was dictated using [employer] fluency dictation system and there may be errors in ladle operator. Despite proof reading the note, there may be mistakes and I apologize for those. By: Sancho Sampson, TOOTIE, 05/22/2023 3:46 PM ACUPRESSURE THERAPIST RESSURE THERAPIST documented in this encounter Plan of Treatment Not on file documented as of this encounter Visit Diagnoses Not on filedocumented in this encounter Care Teams Undercover Cop Relationship Specialty Start Date End Date Lane Ontiveros MD [facility] [address] [address] PCP - General Internal Medicine 10/08/18 documented as of this encounter
--- OUTSIDE RECORDS SUMMARY | 2024-07-03 10:08 | XMS_ITS | Continuity of Care Document ---
Author Organization [facility] [place] Address [address] [place] [address] [address] [place] [address] Phone Care Team Providers Care Ux Architect Name Role Phone Cynthia De Santiago OT Unavailable Unavailable Procedures Procedure Date Therapeutic Activities Neuromuscular Re-Ed Therapeutic Activities Neuromuscular Re-Ed Therapeutic Activities Neuromuscular Re-Ed Progress Note Therapeutic Activities Neuromuscular Re-Ed Therapeutic Exercise Therapeutic Activities Neuromuscular Re-Ed Therapeutic Activities Neuromuscular Re-Ed Therapeutic Exercise Therapeutic Activities Neuromuscular Re-Ed Therapeutic Exercise Therapeutic Activities Neuromuscular Re-Ed Therapeutic Exercise Therapeutic Activities Neuromuscular Re-Ed Therapeutic Activities Neuromuscular Re-Ed Therapeutic Exercise Therapeutic Activities Neuromuscular Re-Ed Therapeutic Exercise Progress Note Therapeutic Activities Neuromuscular Re-Ed Therapeutic Exercise Therapeutic Activities Neuromuscular Re-Ed Therapeutic Exercise Therapeutic Activities Neuromuscular Re-Ed Therapeutic Exercise Therapeutic Activities Neuromuscular Re-Ed Therapeutic Activities Neuromuscular Re-Ed Therapeutic Activities Neuromuscular Re-Ed Manual Therapy Therapeutic Activities Neuromuscular Re-Ed Therapeutic Activities Neuromuscular Re-Ed Therapeutic Activities Neuromuscular Re-Ed Hot or Cold Pack Progress Note Therapeutic Activities Neuromuscular Re-Ed Therapeutic Activities Neuromuscular Re-Ed Hot or Cold Pack Therapeutic Activities Hot or Cold Pack Neuromuscular Re-Ed Therapeutic Activities Neuromuscular Re-Ed Hot or Cold Pack Therapeutic Activities Neuromuscular Re-Ed Therapeutic Activities Neuromuscular Re-Ed Therapeutic Activities Progress Note Therapeutic Activities Neuromuscular Re-Ed Therapeutic Exercise Hot or Cold Pack Therapeutic Activities Neuromuscular Re-Ed Therapeutic Exercise Hot or Cold Pack Therapeutic Activities Neuromuscular Re-Ed Therapeutic Exercise Hot or Cold Pack Therapeutic Activities Neuromuscular Re-Ed Therapeutic Exercise Therapeutic Activities Therapeutic Exercise Hot or Cold Pack Therapeutic Activities Neuromuscular Re-Ed Therapeutic Exercise Hot or Cold Pack Therapeutic Activities Neuromuscular Re-Ed Therapeutic Exercise Hot or Cold Pack Therapeutic Activities Neuromuscular Re-Ed Therapeutic Exercise Hot or Cold Pack Progress Note Neuromuscular Re-Ed Therapeutic Activities Therapeutic Exercise Hot or Cold Pack Therapeutic Activities Neuromuscular Re-Ed Therapeutic Exercise Manual Therapy Therapeutic Activities Neuromuscular Re-Ed Manual Therapy Therapeutic Exercise Hot or Cold Pack Therapeutic Activities Neuromuscular Re-Ed Therapeutic Exercise Hot or Cold Pack Therapeutic Activities Therapeutic Exercise Manual Therapy Hot or Cold Pack Therapeutic Activities Neuromuscular Re-Ed Therapeutic Exercise Hot or Cold Pack Therapeutic Activities Therapeutic Exercise Hot or Cold Pack Progress Note Therapeutic Activities Neuromuscular Re-Ed Therapeutic Exercise Hot or Cold Pack Therapeutic Activities Neuromuscular Re-Ed Therapeutic Exercise Hot or Cold Pack Therapeutic Activities Neuromuscular Re-Ed Therapeutic Exercise Hot or Cold Pack Therapeutic Activities Therapeutic Exercise Manual Therapy Therapeutic Activities Neuromuscular Re-Ed Therapeutic Exercise Manual Therapy Therapeutic Activities Therapeutic Exercise Doc neg elder mal no plan Doc neg elder mal no plan Doc neg elder mal no plan OT Evaluation Low Complexity Therapeutic Activities Therapeutic Exercise Therapeutic Activities Therapeutic Exercise Therapeutic Activities Therapeutic Exercise Therapeutic Activities Therapeutic Exercise Therapeutic Activities Therapeutic Exercise Hot or Cold Pack Therapeutic Activities Therapeutic Exercise Hot or Cold Pack Therapeutic Activities Therapeutic Exercise Hot or Cold Pack Progress Note Therapeutic Activities Therapeutic Exercise Therapeutic Activities Therapeutic Exercise Therapeutic Activities Therapeutic Activities Therapeutic Activities Hot or Cold Pack Therapeutic Activities Hot or Cold Pack Hot or Cold Pack Therapeutic Activities Therapeutic Activities Progress Note Neuromuscular Re-Ed Hot or Cold Pack Therapeutic Activities Therapeutic Activities Neuromuscular Re-Ed Hot or Cold Pack Therapeutic Activities Neuromuscular Re-Ed Hot or Cold Pack Therapeutic Activities Neuromuscular Re-Ed Hot or Cold Pack Therapeutic Activities Manual Therapy Therapeutic Activities Neuromuscular Re-Ed Therapeutic Exercise Doc neg elder mal no plan Progress Note Therapeutic Activities Therapeutic Exercise Neuromuscular Re-Ed Therapeutic Activities Neuromuscular Re-Ed Manual Therapy Therapeutic Activities Therapeutic Exercise Progress Note Therapeutic Activities Therapeutic Exercise Therapeutic Activities Therapeutic Exercise Therapeutic Activities Benik with wrist Orthotic Mgmt and Training Therapeutic Activities Neuromuscular Re-Ed Therapeutic Exercise Therapeutic Activities Therapeutic Exercise Neuromuscular Re-Ed Therapeutic Activities Neuromuscular Re-Ed Therapeutic Activities Neuromuscular Re-Ed Therapeutic Exercise Neuromuscular Re-Ed Therapeutic Exercise Therapeutic Activities Therapeutic Activities Neuromuscular Re-Ed Therapeutic Exercise Therapeutic Activities Neuromuscular Re-Ed Manual Therapy Therapeutic Exercise Doc neg elder mal no plan Doc neg elder mal no plan OT Evaluation Moderate Complexity Therapeutic Activities Manual Therapy Advance Directives Directive Yes / No Effective Date File Name No Information Encounters Encounter Description Practice Location Reason(s) For Visit Diagnoses Date Provider Providers Copied on Encounter [facility] [place] 300, [place], [place], [id number], [place] tel:[phone] [place] No Information Anyi Marie. . Referring Provider: Olivia Baires, 2 [facility] [address], [place], [address]. tel:[phone] [place] [address] [address], [place], [place], [address], [place] tel:[phone] [place] No Information Anyi Marie. . Referring Provider: Olivia Baires, 2 [facility] [address], [place], [address]. tel:[phone] [place] [address] [address], [place], [place], [address], [place] tel:[phone] [place] No Information Anyi Marie. . Referring Provider: Olivia Baires, 2 [facility] [address], [place], [address]. tel:+[phone] [place], [place] [address], [place], [place], [address], [place] tel:[phone] [place] No Information Jesus Manuel Licea. . Referring Provider: Olivia Baires, 2 [facility] [address], [place], [address]. tel:[phone] [place] [address] [address], [place], [address], [place] tel:[phone] [place] No Information Anyi Marie. . Referring Provider: Olivia Baires, 2 [facility] [address], [place], [address]. tel:[phone] [place] [address] [address], [place], [address], [place] tel:[phone] [place] No Information Anyi Marie. . Referring Provider: Olivia Baires, 2 [facility] [address], [place], [address]. tel:[phone] [place] [address], [facility] [address], [place], [place], [address], [place] tel:[phone] [place] No Information Anyi Marie. . Referring Provider: Olivia Baires, 2 [facility] [address], [place], [address]. tel:[phone] [place] [address] [address], [place], [address], tel:[phone] [place] No Information Anyi Marie. . Referring Provider: Olivia Baires, 2 [facility] [address], [place], [facility]. tel:[phone] [place] [address] [address], [place], [place], [address], [place] tel:[phone] [place] No Information Anyi Marie. . Referring Provider: Olivia Baires, 2 [facility] [address], [place], [address]. tel:[phone] [place] [address] [address], [place], [address], [place] tel:[phone] [place] No Information Anyi Marie. . Referring Provider: Olivia Baires, 2 [facility] [address], [place], [address]. tel:[phone] [place] [address] [address], [place], [address], [place] tel:[phone] [place] No Information Anyi Marie. . Referring Provider: Olivia Baires, 2 [facility] [address], [place], [address]. tel:[phone] [place] [address] [address], [place], [address], [place] tel:[phone] [place] No Information Anyi Marie. . Referring Provider: Olivia Baires, 2 [facility] [address], [place], [address]. tel:[phone] [place] [address] [address], [place], [address], [place] tel:[phone] [place] No Information Anyi Marie. . Referring Provider: Olivia Baires, 2 [facility] [address], [place], [facility]. tel:[phone] [place] [address] [place], [place] [address], [place], [address], [place] tel:[phone] [place] No Information Anyi Marie. . Referring Provider: Olivia Baires, 2 [facility] [address], [place], [address]. tel:[phone] [place] [address] [place], [place] [address], [place], [place], [address], tel:[phone] [place] No Information Anyi Marie. . Referring Provider: Olivia Baires, 2 [facility] [address], [place], [address]. tel:[phone] [place] [address] [place], [place] [address], [place], [address], [place] tel:[phone] [place] No Information Anyi Marie. . Referring Provider: Olivia Baires, 2 [facility] [address], [place], [facility]. tel:[phone] [place] [address] [place], [place] [address], [place], [address], [place] tel:[phone] [place] No Information Anyi Marie. . Referring Provider: Olivia Baires, 2 [facility] [address], [place], [address]. tel:[phone] [place], [place] [address] [place] [address], [place], [place], [address], [place] tel:[phone] [place] No Information Anyi Marie. . Referring Provider: Olivia Baires, 2 [facility] [address], [place], [address]. tel:[phone] [place] [address] [address] [place] [address], [place], [address], [place] tel:[phone] [place] No Information Anyi Marie. . Referring Provider: Olivia Baires, 2 [facility] [address], [place], [address]. tel:[phone] [place] [address] [facility] [address], [place], [address], [place] tel:[phone] [place] No Information Anyi Marie. . Referring Provider: Olivia Baires, 2 [facility] [address], [place], [address]. tel:[phone] [place] [address] [place], [place] [address], [place], [address], [place] tel:[phone] [place] No Information Anyi Marie. . Referring Provider: Olivia Baires, 2 [facility] [address], [place], [address]. tel:[phone] [place] [address] [place], [place] [address]uite [facility], [place], [address], [place] tel:[phone] [place] No Information Anyi Marie. . Referring Provider: Olivia Baires, 2 [facility] [address], [place], [address]. tel:[phone] [place] [address] [facility] [address], [place], [address], [place] tel:[phone] [place] No Information Anyi Marie. . Referring Provider: Olivia Baires, 2 [facility] [address], [place], [address]. tel:[phone] [place] [address], [facility] [address], [place], [address], [place] tel:[phone] [place] No Information Anyi Marie. . Referring Provider: Olivia Baires, 2 [facility] [address], [place], [address]. tel:[phone] [place] [address], [address] [place], [place] [address] [address], [place], [address], [place] tel:[phone] [place] No Information Anyi Marie. . Referring Provider: Olivia Baires, 2 [facility] [address], [place], [address]. tel:[phone] [place] [address] [facility] [address], [place], [address], [place] tel:[phone] [place] No Information Anyi Marie. . Referring Provider: Olivia Baires, 2 [facility] [address], [place], [facility]. tel:[phone] [place] [address] [place], [place] [address], [place], [address], [place] tel:[phone] [place] No Information Anyi Marie. . Referring Provider: Olivia Baires, 2 [facility] [address], [place], [address]. tel:[phone] [place] [address] [place], [place] [address]uite [facility], [place], [address], [place] tel:[phone] [place] No Information Anyi Marie. . Referring Provider: Olivia Baires, 2 [facility] [address], [place], [address]. tel:[phone] [place] [address] [facility] [address], [place], [address], [place] tel:[phone] [place] No Information Anyi Marie. . Referring Provider: Olivia Baires, 2 [facility] [address], [place], [address]. tel:+[phone] [place] [address], [address] [place] [address], [place], [address], [place] tel:[phone] [place] No Information Anyi Marie. . Referring Provider: Olivia Baires, 2 [facility] [address], [place], [facility]. tel:[phone] [place] [address], [address] [place] [address], [place], [address], [place] tel:[phone] [place] No Information Anyi Marie. . Referring Provider: Olivia Baires, 2 [facility] [address], [place], [facility]. tel:+[address] [place] [address], [address] [facility], [place], [address], [place] tel:[phone] [place] No Information Anyi Marie. . Referring Provider: Olivia Baires, 2 [facility] [address], [place], [address]. tel:+[phone] [place] [address], [facility] [address], [place], [address], [place] tel:[phone] [place] No Information Anyi Marie. . Referring Provider: Olivia Baires, 2 [facility] [address], [place], [address]. tel:[phone] [place] [address] [facility] [address], [place], [place], [address], [place] tel:[phone] [place] No Information Anyi Marie. . Referring Provider: Olivia Baires, 2 [facility] [address], [place], [address]. tel:+[phone] [place], [place] [address] [place] [address], [place], [place], [address], [place] tel:[phone] [place] No Information Anyi Marie. . Referring Provider: Olivia Baires, 2 [facility] [address], [place], [address]. tel:+[address] [place] [address], [address] [place] [address], [place], [address], [place] tel:[phone] [place] No Information Anyi Marie. . Referring Provider: Olivia Baires, 2 [facility] [address], [place], [address]. tel:+[phone] [place] [address] [facility] [address], [place], [address], [place] tel:[phone] [place] No Information Anyi Marie. . Referring Provider: Olivia Baires, 2 [facility] d[facility] [address], [place], [address]. tel:+[phone] [place] [address], [facility] [address], [place], [address], [place] tel:[phone] [place] No Information Anyi Marie. . Referring Provider: Olivia Baires, 2 [facility] [address], [place], [address]. tel:[phone] [place] [address] [facility] [address], [place], [address], [place] tel:[phone] [place] No Information Anyi Marie. . Referring Provider: Olivia Baires, 2 [facility] [address], [place], [address]. tel:[phone] [place] [address] [facility] [address], [place], [address], [place] tel:[phone] [place] No Information Anyi Marie. . Referring Provider: Olivia Baires, 2 [facility] [address], [place], [address]. tel:+[phone] [place] [address], [address] [place] [address], [place], [address], [place] tel:[phone] [place] No Information Anyi Marie. . Referring Provider: Olivia Baires, 2 [facility] [address], [place], [address]. tel:[phone] [place] [address] [facility] [address], [place], [address], [place] tel:[phone] [place] No Information Anyi Marie. . Referring Provider: Olivia Baires, 2 [facility] [address], [place], [address]. tel:+[phone] [place] [address] [address], [place], [address], [place] tel:[phone] [place] No Information Anyi Marie. . Referring Provider: Olivia Baires, 2 [facility] d[facility] [address], [place], [address]. tel:[phone] [place] [address] [facility] [address], [place], [address], [place] tel:[phone] [place] No Information Anyi Marie. . Referring Provider: Olivia Baires, 2 [facility] [address], [place], [address]. tel:+[phone] [place] [address] [address], [place], [address], [place] tel:[phone] [place] No Information Anyi Marie. . Referring Provider: Olivia Baires, 2 [facility] [address], [place], [address]. tel:[phone] [place] [address] [address], [place], [address], [place] tel:[phone] [place] No Information Anyi Marie. . Referring Provider: Olivia Baires, 2 [facility] [address], [place], [address]. tel:+[phone] [place] [address], [address] [place] [address] [address], [place], [address], [place] tel:[phone] [place] No Information Anyi Marie. . Referring Provider: Olivia Baires, 2 [facility] [address], [place], [address]. tel:[phone] [place] [address] [facility] [address], [place], [place], [address], [place] tel:[phone] [place] No Information Anyi Marie. . Referring Provider: Olivia Baires, 2 [facility] [address], [place], [address]. tel:+[phone] [place] [address] [place], [place] [address], [place], [place], [address], [place] tel:[phone] [place] No Information Jesus Manuel Licea. . Referring Provider: Olivia Baires, 2 [facility] [address], [place], [address]. tel:[phone] [place] [address] [place], [place] [address], [place], [place], [address], [place] tel:[phone] [place] No Information Anyi Marie. . Referring Provider: Olivia Baires, 2 [facility] [address], [place], [address]. tel:+[address] [place] [address] [facility] [address], [place], [address], [place] tel:[phone] [place] No Information Anyi Marie. . Referring Provider: Olivia Baires, 2 [facility] [address], [place], [address]. tel:+[phone] [place] [address] [address] [place] [address], [place], [place], [address], [place] tel:[phone] [place] No Information Anyi Marie. . Referring Provider: Olivia Baires, 2 [facility] [address], [place], [address]. tel:[phone] [place] [address] [address] [place] [address], [place], [place], [address], [place] tel:[phone] [place] No Information Anyi Marie. . Referring Provider: Olivia Baires, 2 [facility] [address], [place], [address]. tel:+[phone] [place] [address] [facility] [address], [place], [place], [address], [place] tel:[phone] [place] No Information Anyi Marie. . Referring Provider: Olivia Baires, 2 [facility] [address], [place], [address]. tel:[phone] [place] [address] [facility] [address], [place], [address], [place] tel:[phone] [place] No Information Anyi Marie. . Referring Provider: Olivia Baires, 2 [facility] [address], [place], [address]. tel:+[phone] [place] [address] [facility] [address], [place], [address], [place] tel:[phone] [place] No Information Anyi Marie. . Referring Provider: Olivia Baires, 2 [facility] [address], [place], [address]. tel:+[phone] [place] [address] [address], [place], [place], [address], [place] tel:[phone] [place] No Information Anyi Marie. . Referring Provider: Olivia Baires, 2 [facility] [address], [place], [address]. tel:[phone] [place] [address], [facility] [address], [place], [address], [place] tel:[phone] [place] No Information Anyi Marie. . Referring Provider: Olivia Baires, 2 [facility] [address], [place], [address]. tel:[phone] [place] [address] [address], [place], [address], [place] tel:[phone] [place] No Information Anyi Marie. . Referring Provider: Olivia Baires, 2 [facility] [address], [place], [address]. tel:[phone] [place] [address] [address], [place], [address], [place] tel:[phone] [place] No Information Anyi Marie. . Referring Provider: Olivia Baires, 2 [facility] [address], [place], [address]. tel:+[phone] [place] [address] [address], [place], [address], [place] tel:[phone] [place] No Information Anyi Marie. . Referring Provider: Olivia Baires, 2 [facility] [address], [place], [address]. tel:[phone] [place] [address] [address], [place], [address], [place] tel:[phone] [place] No Information Anyi Marie. . Referring Provider: Olivia Baires, 2 [facility] [address], [place], [address]. tel:[phone] [place] [address] [address], [place], [address], [place] tel:[phone] [place] No Information Anyi Marie. . Referring Provider: Olivia Baires, 2 [facility] [address], [place], [address]. tel:+[address] [place] [address] [address] [place] [address], [place], [address], [place] tel:[phone] [place] No Information Anyi Marie. . Referring Provider: Olivia Baires, 2 [facility] [address], [place], [address]. tel:[phone] [place] [address], [address] [address], [place], [address], [place] tel:[phone] [place] No Information Anyi Marie. . Referring Provider: Olivia Baires, 2 [facility] d[facility] [address], [place], [facility]. tel:+[address] [place] [address], [address] [facility], [place], [address], [place] tel:[phone] [place] No Information Anyi Marie. . Referring Provider: Olivia Baires, 2 [facility] [address], [place], [address]. tel:+[phone] [place] [address], [address] [facility], [place], [address], [place] tel:[phone] [place] No Information Anyi Marie. . Referring Provider: Olivia Baires, 2 [facility] [address], [place], [address]. tel:[phone] [place] [address] [address], [place], [place], [id number], [place] tel:[phone] [place] No Information Anyi Marie. . Referring Provider: Olivia Baires, 2 [facility], [place], [address]. tel:[phone] [place], [place] [address] [address], [place], [place], [id number], [place] tel:[phone] [place] No Information Anyi Marie. . Referring Provider: Olivia Baires, 2 [facility], [place], [address]. tel:[phone] [place] [address] [facility] [address], [place], [place], [id number], [place] tel:[phone] [place] No Information Anyi Marie. . Referring Provider: Olivia Baires, 2 [facility], [place], [address]. tel:[phone] [place] [address] [address], [place], [place], [id number], [place] tel:[phone] [place] No Information Anyi Marie. . Referring Provider: Olivia Baires, 2 [facility], [place], [address]. tel:[phone] [place] [address] [facility] [address], [place], [place], [id number], [place] tel:[phone] [place] No Information Anyi Marie. . Referring Provider: Olivia Baires, 2 [facility] [address], [place], [address]. tel:[phone] [place] [address] [facility] [address], [place], [place], [address], [place] tel:[phone] [place] No Information Anyi Marie. . Referring Provider: Olivia Baires, 2 [facility], [place], [address]. tel:[phone] [place] [address] [address], [place], [place], [id number], [place] tel:[phone] [place] No Information Anyi Marie. . Referring Provider: Olivia Baires, 2 [facility] [address] [address], [place], [address]. tel:[phone] [place] [address], [address], [place], [place], [address], [place] tel:[phone] [place] No Information Anyi Marie. . Referring Provider: Olivia Baires, 2 [facility] [address], [place], [address]. tel:[phone] [place] [address] [address], [place], [place], [id number], [place] tel:[phone] [place] No Information Anyi Marie. . Referring Provider: Olivia Baires, 2 [facility] [address], [place], [address]. tel:[phone] [place] [address] [address], [place], [address], [place] tel:[phone] [place] No Information Anyi Marie. . Referring Provider: Olivia Baires, 2 [facility] [address] [address], [place], [address]. tel:[phone] [place] [address] [facility] [address], [place], [place], [address], [place] tel:[phone] [place] No Information Anyi Marie. . Referring Provider: Olivia Baires, 2 [facility] [address], [place], [address]. tel:[phone] [place] [address] [facility] [address], [place], [place], [address], [place] tel:[phone] [place] No Information Anyi Marie. . Referring Provider: Olivia Baires, 2 [facility] [address], [place], [address]. tel:[phone] [place] [address] [address], [place], [address], [place] tel:[phone] [place] No Information Anyi Marie. . Referring Provider: Olivia Baires, 2 [facility] [address], [place], [address]. tel:[phone] [place], [place] [address] [address], [place], [place], [address], tel:[phone] [place] No Information Anyi Marie. . Referring Provider: Olivia Baires, 2 [facility] A [address], [place], [address]. tel:[phone] [facility], [address] [facility] [address], [place], [place], [id number], tel:[phone] [place] No Information Anyi Marie. . Referring Provider: Olivia Baires, 2 [facility] A [facility], [place], [address]. tel:[phone] [facility] [address] [address], [place], [place], [address], tel:[phone] [place] No Information Anyi Marie. . Referring Provider: Olivia Baires, 2 [facility] A [facility], [place], [address]. tel:[phone] Family History Family Member Type Diagnosis Age At Onset No Information Payers Payer name Insurance type Covered libertarian ID Authorpagea tiromero(s) Medicare [place] [id number] [facility] [id number] Social History Type Description Quantity Date Captured Comments Sex Female Smoking Status No Information Chief Complaint And Reason For Visit No Information Reason For Referral Reason For Referral No Information History Of Present Illness Encounter Date Complaint History Of Prese nt Illness No Information Functional Status Date Functional Assessmen t No Information Instructions Date Instruction Additional Infor mation Prescribed activity/exercise edu cation Related to Overweight Prescribed activity/exercise edu cation Related to Overweight Dietary needs education Related to Overweight Dietary needs education Related to Overweight Dietary needs education Related to Overweight Prescribed activity/exercise edu cation Related to Overweight Dietary needs education Related to Overweight Prescribed activity/exercise edu cation Related to Overweight Assessments Type Assessment Date No Information Patient Care Teams Name Effective Dates (start - stop) Status Members No Information
--- OUTSIDE RECORDS SUMMARY | 2024-07-03 10:08 | XMS_ITS | Encounter Summary ---
Author Organization [facility] Address [address] [place] [address] Phone Care Team Providers Care Diesel Truck Mechanic Name Role Phone Lane Ontiveros MD Primary Care Provider Encounter Details Date Type Department Care Team (Late st Contact Info) Description 05/19/2023 Nursing Facility [facility] [address] [place] [phone] Sancho Sampson, PAC [address] [place] [id number] Social History Tobacco Use Types Packs/Day Years Used Date Smoking Tobacco: Never Assessed Comments Unknown Sex and Gender Information Value Date Recorded Sex Assigned at Not on file Legal Sex Female 5:27 PM CDT Gender Identity Not on file Sexual Orientation Not on file documented as of this encounter Progress Notes * Sancho Sampson, TOOTIE - 05/19/2023 11:50 AM CST [facility] PROGRESS NOTE Maria Ines Donovans is a 88 y.o. female at [facility] for rehabilitation. Prior to coming to rehabilitation facility patient was hospitalized at [facility] from04/11/2023 through 04/15/2023 for lumbar compression fracture which was treated conservatively. Subjective: Interval History: I am seeing patient for a skilled visit. She is sitting comfortably in her chair. Says she feels ???okay?? . No acute symptoms or concerns this time. Back pain and knee pain still present but improving. Says she has not needed the Percocet for quite some time now and wants that removed from her medicine list. Tylenol works well when she uses it. Does not like the protein supplement wants to make sure she does not get that anymore as it makes her nauseous. Feels like therapy is going well otherwise. Therapy says she is improving. Likely discharge in this week. Nursing staff with no concerns about the [...] None Assessment/Plan: Generalized weakness and deconditioning Receiving correction care and physical therapy rehabilitation 05/19/2023 improving Lumbar compression fracture Conservative management with p.r.n. pain medications and therapy 05/19/2023 Improving Right 1st metatarsal fracture Had ortho [...] this week. This note was dictated using M*Modal fluency dictation system and there may be errors in agricultural produce commission agent. Despite proof reading the note, there may be mistakes and I apologize for those. By: TOOTIE Vaughn, 05/19/2023 11:51 AM MANAGER CLINICAL RESEARCH GER CLINICAL RESEARCH documented in this encounter Plan of Treatment Not on file documented as of this encounter Visit Diagnoses Not on filedocumented in this encounter Care Teams Diesel Truck Mechanic Relationship Specialty Start Date End Date Lane Ontiveros MD [address] [facility] [address] [place] [address] [place] [id number] PCP - General Internal Medicine 10/08/18 documented as of this encounter
== END 2024-07-03 10:05 | disposition home or self-care (01) ==
LOC: CHSIMG 10:06
PROVIDERS: PCP Family Medicine; Visit Provider Family Medicine
DX: S89.92XA Unspecified injury of left lower leg, initial encounter (principal); M25.462 Effusion, left knee; M89.9 Disorder of bone, unspecified
CPT/HCPCS: 73562

== ENCOUNTER 2024-08-19 08:51 | Outpatient (CLI) | payer MEDICARE, MEDICAID, SELFPAY ==
--- NOTE | ~2024-08-19 | XR_ITS ---
XR knee LT 3V 08/19/2024 09:36 Indication: Proximal fibular fracture Procedure: 5 views of the left knee Comparison: Comparison to multiple prior studies sequentially, with oldest reviewed study dated 11/12. Findings: There is a healing transverse proximal right tibial metaphyseal fracture with developing sc lerosis and callus formation. No significant displacement. There is a healing proximal fibular neck f racture. Osteopenia. Moderate joint effusion. Impression: 1: Healing proximal right tibial metaphyseal fracture. 2: Healing proximal left neck fracture. 3: Moderate joint effusion. Reviewed, dictated and finalized at location A. Impression: 1: Healing proximal right tibial metaphyseal fracture. 2: Healing proximal left neck fracture. 3: Moderate joint effusion.
--- OUTSIDE RECORDS SUMMARY | 2024-08-19 09:06 | XMS_ITS | Clinical Summary ---
Author Organization [facility] Address [address] [place] [address] Care Team Providers Care Channel Layer Name Role Phone Shweta Ontiveros MD Primary Care Provider Deborah Pimentel RN Unavailable [phone] Allergies Active Allergy Reactions Criticality Noted Date [...] the rectum 3 Active vit A,C and S-vhpxeh-hkspric s (Ocuvite with Lutein) 300 mcg-200 mg-27 [...] cardiomyopathy 08/25/2023 NSTEMI (non-ST elevated myocardial infarction) 0 08/25/2023 HFrEF (heart failure with reduced ejection fract ion) 08/25/2023 Assessment & Plan (12/05/2023 2:19 PM CDT): #HFrEF - Follows with Dr. Wolfe ([facility]) - Most recent TTE: [...] 2-4 weeks fo rdischarge Discharge infom from [facility] cardiology provided as below Outpatient Follow-Up Plan: Follow-up with [facility] Cardiology:General Cardiology in 2-4 weeks. Please call to make an appointment when the patient is ready for discharge. If the appointment has not been scheduled by the time of discharge, please provide the following information to the patient on the discharge instructions: If you have not received information within a week of discharge regarding a follow-up appointment with [facility]iology, please contact our office at . Thank you for involving us in the care of this patient. If you have any additional questions or concerns during this admission, please contact the respective cardiology consult team listed on [employer] [place], from Friday-Friday, 7:30 am - 4:30 pm, you may reach the Cardiology Consult Line at . Fall 08/25/2023 Chronic deep vein thrombosis (DVT) of left upper extremity 07/15/2023 Assessment & Plan (07/15/2023 11:01 AM STORE ADMINISTRATIVE ASSISTANT): - Currently on heparin gtt - Could consider stopping given chronicity of DVT Shock 07/10/2023 Assessment & Plan (07/15/2023 6:29 AM STORE ADMINISTRATIVE ASSISTANT): - 07/09 Transferred to SICU for persistent [...] 07/09/2023 Assessment & Plan (07/14/2023 5:41 AM STORE ADMINISTRATIVE ASSISTANT): - Cr 0.65 on admission - Cr elevated, now downtrending. Peak around 2 - Monitor urine output, gentle IVF hydration - Follow BMP daily Closed fracture of proximal end of right tibia, unspecified fracture morphology, initial encounter 07/08/2023 Fracture of right tibia and fibula 07/08/2023 Assessment & Plan (07/08/2023 3:26 PM STORE ADMINISTRATIVE ASSISTANT): - Orthopedics consult - Splinted in ED - s/p OR 07/08 for IMN right tibia - Ancef x 24h post op - WBAT RLE - Pain control - PT/OT Syncope 07/08/2023 Assessment & Plan (07/11/2023 7:43 AM STORE ADMINISTRATIVE ASSISTANT): - Frequent falls recently reported by patient's daughter - Telemetry monitoring - EKG with left BBB (known history) - See shock below Delirium 07/08/2023 Assessment & Plan (07/13/2023 5:19 PM STORE ADMINISTRATIVE ASSISTANT): - Delirium precautions - Ramelteon HS Anxiety 07/08/2023 Assessment & Plan (11/29/2023 1:58 PM CDT): #Panic attacks - Intermittent 1L 20- 25min of O2 at home about 1x/week when feels anxious - continue home bupropion and duloxetine Assessment & Plan (07/15/2023 6:25 AM STORE ADMINISTRATIVE ASSISTANT): - Continue home duloxetine, bupropion, mirtazapine - Holding home Xanax - Atarax daily PRN Depression 07/08/2023 Assessment & Plan (07/08/2023 11:56 AM STORE ADMINISTRATIVE ASSISTANT): SEE ANXIETY Overactive bladder 07/08/2023 Assessment & Plan (07/13/2023 5:20 PM STORE ADMINISTRATIVE ASSISTANT): - Continue home Myrbetriq (temporarily held) Acute pain due to trauma 07/08/2023 Assessment & Plan (12/02/2023 4:40 PM CDT): - Tylenol 1000mg Q6H - Oxycodone 5mg Q4H PRN - Robaxin 500mg TID PRN Assessment & Plan (07/14/2023 5:41 AM STORE ADMINISTRATIVE ASSISTANT): - tylenol 1000 mg q6h PRN - [...] 12/04 Assessment & Plan (07/15/2023 6:27 AM STORE ADMINISTRATIVE ASSISTANT): - 07/08: Pending OR with orthopedics - [...] 04/12/2023 Closed burst fracture of lumbar vertebra 023 Assessment & Plan (07/15/2023 6:26 AM STORE ADMINISTRATIVE ASSISTANT): - NSGY consult - Non operative management -TLSO when OOB - Still need upright XR in TLSO when able, call NSGY to review - Q4H neuro checks - Outpatient follow up in 6 weeks with NSGY Nerve compression 04/30/2022 History of 2019 novel coronavirus disease (COVID -19) 02/26/2022 Right wrist drop 01/02/2022 Overview (01/02/2022): Added automatically from request for surgery [id number] Injury of right posterior interosseous nerve Overview (01/02/2022): Added automatically from request for surgery [id number] Radial nerve palsy, 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 Does not manage her own medications - PT/OT Assessment & Plan (08/02/2021 1:56 PM CDT): Mechanical fall CT head and neck negative advil prn for headache w/ food F/u prn Arthritis of knee, left 02/27/2021 Elevated d-dimer 11/13/2020 Left bundle branch block (LB BB) determined by electrocardiography 11/13/2020 Medicare annual wellness visit, subsequent 03/22 Assessment & Plan (03/22/2019 11:00 AM STORE ADMINISTRATIVE ASSISTANT): Self assessment detail includes: No current home safety or functional concerns at this time per assessment scales. Hearing and vision intact. Admits to use smoke and carbon monoxide alarms. The fall risk is minimal. The cognitive screening was negative for dementia, depression anxiety both appear to be stable on current medication. Pt has a living will and durable power of environmental attorney in place. In regard to social [...] 03/22/2019 Assessment & Plan (03/22/2019 10:58 AM STORE ADMINISTRATIVE ASSISTANT): Decline urologist consultation this point time, stress [...] 08/27/2017 Assessment & Plan (03/22/2019 10:52 AM STORE ADMINISTRATIVE ASSISTANT): Cnt. To see pain management, , for pain management. Cnt. With Cymbalta as prior advised. Multiple-type hyperlipidemia 02/14/2016 Overview (08/23/2016): MIXED HYPERLIPIDEMIA Assessment & Plan (11/29/2023 2:01 PM CDT): - continue home atorvastatin Assessment & Plan (03/22/2019 10:56 AM STORE ADMINISTRATIVE ASSISTANT): Stable with recent labs indicated total cholesterol 172, triglycerides 125, LDL 94, HDL 53. Cnt. Heart healthy diet, mild daily exercise. ASA discussed, but deferred given risks vs benefit. Hypothyroid 02/14/2016 Overview (08/23/2016): HYPOTHYROIDISM NOS Assessment & Plan (11/29/2023 1:59 PM CDT): - continue home synthroid Assessment & Plan (07/08/2023 12:06 PM STORE ADMINISTRATIVE ASSISTANT): - Continue Synthroid Generalized osteoarthritis 10/02/2013 Overview (08/23/2016): GENERAL OSTEOARTHROSIS Gastroesophageal reflux disease 10/02/2013 Overview (08/23/2016): ESOPHAGEAL REFLUX Assessment & Plan (11/29/2023 2:01 PM CDT): - continue home pepcid Age-related osteoporosis with current pathologic al fracture 10/02/2013 Overview (08/23/2016): OSTEOPOROSIS NOS Normocytic anemia Assessment & Plan (03/22/2019 10:52 AM STORE ADMINISTRATIVE ASSISTANT): Anemia secondary to femur fracture in June [...] 022 Fracture of distal end of femur 07/09/2018 07/26/2019 Pain, joint, shoulder, left 09/10/2017 08/27/2021 BMI 30.0-30.9,adult 06/23/2017 12/06/19 Assessment & Plan (06/23/2017 2:21 PM STORE ADMINISTRATIVE ASSISTANT): Recommended patient to continue to increase heart healthy diet with adequate fruits, vegetables, and plenty of water along with mild-moderate daily exercise as tolerated. Pleurisy 06/23/2017 09/08/2017 Assessment & Plan (06/23/2017 2:23 PM STORE ADMINISTRATIVE ASSISTANT): Recommended Jennie De La Cruz for cough suppression to take 1-2 tabs t.i.d. p.r.n. additionally I advised her she can take plain naproxen only on a p.r.n. basis or Advil she cannot take both. Follow-up in office in 4 days is recommended Acute bronchitis due to othe r specified organisms 06/23/2017 09/08/2017 Assessment & Plan (06/23/2017 2:22 PM STORE ADMINISTRATIVE ASSISTANT): Recommended Levaquin 500 mg once daily for [...] course of 10 days, increased fluids, Mucinex tfun-zfk-iyhapvi for daytime cough and Tessalon Perles for [...] NEC Assessment & Plan (06/23/2017 2:23 PM STORE ADMINISTRATIVE ASSISTANT): Possible COPD exacerbation due to acute bronchitis. 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 Hyperlipidemia Hyperlipidemia Gastroesophageal reflux disease GERD Osteoporosis Osteoporosis Osteoarthritis Osteoarthritis Hx Other Medical 1982 benign tumor in colon Hx Other Medical DEAN OF EDUCATION Disorder of thyroid Thyroid dise ase Hx Other Medical 03/08/2012 ER visit for ch est pain Hx Other Medical Gallbladder Hx Other Medical Abdominal Tumor Hx Other Medical lens implants o s&od Cerebrovascular accident (CVA) (HCC) stroke Depression Depression Eye exam, routine 05/05/2017 Mohs defect of right nose cancer Cancer (HCC) MOHS surgery on left nose - cancerous Eye exam, [...] drink = 0.6 oz pur e alcohol) [facility] Utilities Answer Date Recorded In the past 12 months has [employer], gas, oil, or water [employer] threatened to shut off services in your [...] week 11/30/2023 How often do you attend [facility] or mandaen services? Never 11/30/2023 Do you belong to any clubs o r organizations such as voodoo groups, unions, fraternal or athletic groups, or [...] place to sleep or slept in a usp (including now)? No 07/11/2023 Housing Stability Vital Sign Answer Timothy e Recorded In the last 12 months, was t here a time when you were not able to pay the mortgage or rent on time? No 11/30/2023 In the past 12 months, how m any times have you moved where you were living? 0 11/30/2023 At any time in the past 12 m [facility], were you homeless or living in a usp (including now)? No 11/30/2023 Personal Safety Answer Date Recorded Have you ever been in or are you currently in a harmful physical or emotional relationship or is someone making you feel afraid or unsafe? Denies 12/02/2023 Comments No Sex and Gender Information Value Date Recorded Sex Assigned at Not on file Legal Sex Female 11:52 PM STORE ADMINISTRATIVE ASSISTANT Gender Identity Not on file Sexual Orientation [...] 02/06/2010, Additional history exists Covid-19 Vaccine (3 - 2023-2 5 season) 2024 08/17/2020, 07/27/2020 Well [...] 65+ Discontinued Medical Devices Implanted Type Area Drain Layer Device Identifier Shelf Expiration Date Model / Serial / Lot [employer] Angio-Seal Vip 6fr Closere Device [id number] - [id number] - [id number] Implanted:Qty: 1 on 07/21/2023 by Tc Enriquez MD at [facility] Collagen Left: Common Femoral Artery [employer] Chavez 04/03/2024 [id number] / [id number] / [id number] [employer]za [employer]hew[employer]Rich[employer]/Or tho Trigen [place]-Nail 8.5mm 33cm Tibia Nail Intramedullary Titanium [id number] - [id number] Implanted:Qty: 1 on 07/08/2023 by Emiliano Wagner MD at [facility] Nail Right: Tibia [employer]/ Ortho [id number] 02/29/2032 [id number] / / [id number] [employer]/Or tho 4.5mm 6.5mm Low Profile Internal Capture Femur Screw Bone Trigen [id number] - [id number] Implanted:Qty: 1 on 07/08/2023 by Emiliano Wagner MD at [facility] Screw Right: Tibia [employer]/ Ortho [id number] 08/21/2031 [id number] / / [id number] [employer]Rich[employer]/Or tho 4.5mm 60mm Low Profile Internal Capture Femur Screw Bone Trigen [id number] - [id number] Implanted:Qty: 1 on 07/08/2023 by Emiliano Wagner MD at [facility] Screw Right: Tibia [employer]/ Ortho [id number] 06/28/2030 [id number] / / [id number] [employer]/Or tho 4.5mm 40mm Low Profile Internal Capture Femur Screw Bone Trigen [id number] - S0 - [id number] Implanted:Qty: 1 on 07/08/2023 by Emiliano Wagner MD at [facility] Screw Right: Tibia [employer]/ Ortho [id number] 01/15/2032 [id number] / 0 / [id number] [employer]/Or tho 4.5mm 32.5mm Low Profile Internal Capture Femur Screw Bone Trigen [id number] - [id number] Implanted:Qty: 1 on 07/08/2023 by Emiliano Wagner MD at [facility] Screw Right: Tibia [employer]/ Ortho [id number] 05/22/2031 [id number] / / [id number] [employer]Rich[employer]/Or tho 4.5mm 25mm Low Profile Internal Capture Femur Screw Bone Trigen [id number] - [id number] Implanted:Qty: 1 on 07/08/2023 by Emiliano Wagner MD at [facility] Screw Right: Tibia [employer]/ Ortho [id number] 08/19/2031 [id number] / / [id number] [employer]/Or tho 5mm 40mm Low Profile Internal Hex Femur Screw Bone Trigen [id number] - S0 - [id number] Implanted:Qty: 1 on 07/08/2023 by Emiliano Wagner MD at [facility] Screw Right: Tibia [employer]/ Ortho [id number] / 0 / 4.5mm Lcp Condylar Plates Implanted:Qty: 1 on 07/10/2018 by Shweta Iverson MD at [facility] Right: Femur DEPUY SYNTHES iCentera C1713 222.656 / / Synthes 02.205.065 5mm 4.4mm 65mm Cannulated Self Tap Self Drill Lock 4mm Full - [id number] Implanted:Qty: 1 on 07/10/2018 by Shweta Iverson MD at [facility] Right: Femur Synthes I 02.205.06 5 / / Synthes 02.205.075 5mm 4.4mm 75mm Cannulated Self Tap Self Drill Lock 4mm Full - [id number] Implanted:Qty: 2 on 07/10/2018 by Shweta Iverson MD at [facility] Right: Femur Synthes I 02.205.07 5 / / Synthes 214.840 4.5mm 8mm 40mm Self Tap Large Hexagonal Socket Cortex Screw Bone - [id number] Implanted:Qty: 1 on 07/10/2018 by Shweta Iverson MD at [facility] Right: Femur Synthes I 214.840 / / 5.0mm Locking Screw, Self-Tapping With T25 Stardrive Recess Implanted:Qty: 1 on 07/10/2018 by Shweta Iverson MD at [facility] Right: Femur DEPUY Yozons C1713 212.208 / / Synthes 212.218 5mm 4.4mm 48mm Self Tap Lock Stardrive Conical Head Cortical - [id number] Implanted:Qty: 1 on 07/10/2018 by Shweta Iverson MD at [facility] Right: Femur Synthes I C1713 212.218 / / 7.3mm Cannulated Locking Screw Implanted:Qty: 1 on 07/10/2018 by Shweta Iverson MD at [facility] Right: Femur DEPUY SYNTHES iCentera C1713 02.207.08 0 / / 5.0mm Locking Screws, Self-Tapping With T25 Stardrive Recess Implanted:Qty: 1 on 07/10/2018 by Shweta Iverson MD at [facility] Right: Femur DEPUY Yozons C1713 212.216 / / 5.0mm Locking Screws, Self-Tapping With T25 Stardrive Recess Implanted:Qty: 2 on 07/10/2018 by Shweta Iverson MD at [facility] Right: Femur DEPUY [employer]ANIES C1713 212.214 / / Axogen Inc Axoguard 3.5mm 40mm Reinforce Wrap Protector Nerve Porcine [id number] - [id number] Implanted:Qty: 1 on 04/30/2022 by Olivia Baires MD at [facility] [employer] Inc 07/08/2023 [id number] / / [id number] [employer]hew[employer]Rich[employer]/Or tho Evos Mini 2.7mm 4.5mm 38mm Self Tap Cortex T8 Screw Bone Sterile [id number] - [id number] Implanted:Qty: 1 on 12/02/2023 by Mariann Dawson MD at [facility] Right: Ankle [employer]/ Ortho [id number] / / M[employer]Rich[employer]/Or tho Evos Mini 2.7mm 4.5mm 11mm Self Tap Cortex T8 Screw Bone [id number] - [id number] Implanted:Qty: 1 on 12/02/2023 by Mariann Dawson MD at [facility] Right: Ankle [employer]/ Ortho [id number] / / M[employer]Rich[employer]/Or tho 2.7mm 4.3mm 16mm Self Tap Lock T8 2mm Screw Bone Evos [id number] - [id number] Implanted:Qty: 1 on 12/02/2023 by Mariann Dawson MD at [facility] Right: Ankle [employer]/ Ortho [id number] / / M[employer]Rich[employer]/Or tho Evos Mini 2.7mm 4.5mm 15mm Self Tap Cortex T8 Screw Bone 03198076 - [id number] Implanted:Qty: 1 on 12/02/2023 by Mariann Dawson MD at [facility] Right: Ankle [employer]Rich[employer]/ Ortho [id number] / / M[employer]Rich[employer]/Or tho Evos Mini 2.7mm 4.5mm 10mm Self Tap Cortex T8 Screw Bone [id number] - [id number] Implanted:Qty: 1 on 12/02/2023 by Mariann Dawson MD at [facility] Right: Ankle [employer]/ Ortho [id number] / / M[employer]Rich[employer]/Or tho Evos Mini 2.7mm 4.5mm 12mm Self Tap Cortex T8 Screw Bone [id number] - [id number] Implanted:Qty: 1 on 12/02/2023 by Mariann Dawson MD at [facility] Right: Ankle [employer]Rich[employer]/ Ortho [id number] / / M[employer]Rich[employer]/Or tho Evos 3.5mm 70mm Self Tap Cortex Screw Bone Sterile 61516073 - [id number] Implanted:Qty: 1 on 12/02/2023 by Mariann Dawson MD at [facility] Right: Ankle [employer]Rich[employer]/ Ortho [id number] / / M[employer]Rich[employer]/Or tho Evos 3.5mm 12mm Self Tap Cortex Screw Bone Sterile [id number] - [id number] Implanted:Qty: 3 on 12/02/2023 by Mariann Dawson MD at [facility] Right: Ankle [employer]Rich[employer]/ Ortho [id number] / / M[employer]hew[employer]Rich[employer]/Or tho Evos 3.5mm 36mm Self Tap Cortex Screw Bone Sterile 23791000 - [id number] Implanted:Qty: 1 on 12/02/2023 by Mariann Dawson MD at [facility] Right: Ankle [employer]Rich[employer]/ Ortho [id number] / / M[employer]hew[employer]Rich[employer]/Or tho Evos 3.5mm 42mm Self Tap Cortex Screw Bone Sterile [id number] - [id number] Implanted:Qty: 1 on 12/02/2023 by Mariann Dawson MD at [facility] Right: Ankle [employer]Rich[employer]/ Ortho [id number] / / M[employer]hew/Richco/Or tho Evos 3.5mm 38mm Self Tap Cortex Screw Bone Sterile 07285164 - [id number] Implanted:Qty: 1 on 12/02/2023 by Mariann Dawson MD at [facility] Right: Ankle [employer]Rich[employer]/ Ortho [id number] / / M[employer]hew[employer]Rich[employer]/Or tho Evos [id number] 16.3x1.7mm 7 Hole Low Profile Variable Angle Lock 13086535 - [id number] Implanted:Qty: 1 on 12/02/2023 by Mariann Dawson MD at [facility] Right: Ankle [employer]Rich[employer]/ Ortho [id number] / / M[employer]za [employer]hew/Richco/Or tho Evos 3.5mm 110mm Self Tap Cortex Screw Bone Sterile 04010051 - [id number] Implanted:Qty: 1 on 12/02/2023 by Mariann Dawson MD at [facility] Right: Ankle [employer]Rich[employer]/ Ortho [id number] / / Procedures Procedure Name Priority Date/Time [...] by: SCREENING MAMM W ILAN BI Acc#: [id number] Screening Mamm Bi Acc#: [id number] DATE OF EXAM: Mar 04 2016 CLINICAL [...] DR SHWETA ONTIVEROS Requesting Attending Attending ID: [id number] Requesting ID: [id number] Report To 1 ID: [id number] Report To 1 Name: DR SHWETA ONTIVEROS Report To 1 FAX: [phone] NextGen Order #: Procedure Note Provider, Erica, - 09/25/2016 Mammogram Performed by: SCREENING MAMM W ILAN BI Acc#: [id number] Screening Mamm Bi Acc#: [id number] DATE OF EXAM: Mar 04 2016 CLINICAL [...] DR SHWETA ONTIVEROS Requesting Attending Attending ID: [id number] Requesting ID: [id number] Report To 1 ID: [id number] Report To 1 Name: DR SHWETA ONTIVEROS Report To 1 FAX: [phone] NextGen Order #: Historical Provider MD MEYER MAMMO PROCEDURES Lauren l Result * COLONOSCOPY (02/06/2010 12:00 AM CDT) Anatomical Region Laterality Modality Other Narrative 02/06/2010 12:00 AM CDT Ordered by an unspecified provider. Procedure Note Provider, MD Erica - 02/06/2010 12:00 AM CDT PROCEDURE REPORT Patient: NESTOR REY Account: [id number] Room No: : 1935 Patient Type: OPA [...] female. ENDOSCOPIST: Edmond Mayes M.D. INSTRUMENT USED: [employer] video endoscope. MEDICATIONS: Per Anesthesia. FINDINGS: The [...] on a p.r.n. basis. Edmond Mayes M.D. MA/ms TD: 02/06/2010 14:27 CC: Shweta Ontiveros M.D. PROCEDURE REPORT Authenticated by Edmond Mayes MD On 02/09/2010 09:20:31 AM Historical Provider MD ENDOSCOPY PROCEDURES Lauren l Result from Last 3 Months or Most Recently Relevant to Health Maintenance Insurance MEDICARE [facility] [place] [address] [place] MEDICARE SUPPLEMENT [facility] GENERIC MEDICARE [facility] MEDICARE [employer] MEDICARE SUPPLEMENT Advance Directives For more information, please contact: [phone] Documents on File Type Date Recorded Patient Associate Music Professor Expl anation ADVANCE DIRECTIVE 07/24/2023 11:05 PM POWER OF SENIOR PHP DEVELOPER-FINANCIAL/MEDIC AL ADVANCE DIRECTIVE 07/03/2022 10:31 AM Alex r of House Officer-Financial ADVANCE DIRECTIVE 05/03/2022 10:06 AM Pow er of House Officer-Medical ADVANCE DIRECTIVE 07/23/2018 9:35 AM Power of House Officer ADVANCE DIRECTIVE 07/23/2018 9:35 AM ADVANCE DIRECTIVE [...] Kyra Daughter Health Care Agent Care Teams Channel Layer Relationship Specialty Start Date End Date Shweta Ontiveros MD [address] [place] [address] [address] [place] [address] PCP - General Internal Medicine 05/01/22 Deborah Pimentel RN [address] [place] [address] [address] [place] [address] Stuffer 07/28/24
--- OUTSIDE RECORDS SUMMARY | 2024-08-19 09:06 | XMS_ITS | Encounter Summary ---
Author Organization [facility] Address [address] [place] [address] Phone Care Team Providers Care Ceramic Coater Name Role Phone Lane Ontiveros MD Primary Care Provider Encounter Details Date Type Department Care Team (Late st Contact Info) Description 05/13/2023 Nursing Facility [facility] [address] [place] [phone] Sancho Sampson, PAC [address] [place] [phone] Social History Tobacco Use Types Packs/Day Years Used Date Smoking Tobacco: Never Assessed Comments Unknown Sex and Gender Information Value Date Recorded Sex Assigned at Not on file Legal Sex Female 5:27 PM CDT Gender Identity Not on file Sexual Orientation Not on file documented as of this encounter Progress Notes * Sancho Sampson, TOOTIE - 05/13/2023 1:15 PM CST [facility] PROGRESS NOTE Maria Ines Karyn HarmonJacobs is a 88 y.o. female at [facility] for rehabilitation. Prior to coming to rehabilitation facility patient was hospitalized at [facility] from04/11/2023 through 04/15/2023 for lumbar compression [...] None Assessment/Plan: Generalized weakness and deconditioning Receiving nursing home care and physical therapy rehabilitation 05/13/2023 improving [...] system and there may be errors in strap machine operator automatic. Despite proof reading the note, there may be mistakes and I apologize for those. By: TOOTIE Vaughn, 05/13/2023 1:15 PM STOREHOUSE CLERK EHOUSE CLERK documented in this encounter Plan of Treatment Not on file documented as of this encounter Visit Diagnoses Not on filedocumented in this encounter Care Teams Ceramic Coater Relationship Specialty Start Date End Date Lane Ontiveros MD [address] [facility] [address] [place] [id number] PCP - General Internal Medicine 10/08/18 documented as of this encounter
--- OUTSIDE RECORDS SUMMARY | 2024-08-19 09:06 | XMS_ITS | Encounter Summary ---
Author Organization [facility] Address [address] [facility] [address] Phone Care Team Providers Care Pump Service Supervisor Name Role Phone Lane Ontiveros MD Primary Care Provider Encounter Details Date Type Department Care Team (Late st Contact Info) Description 04/25/2023 Nursing Facility [facility] [address] [place] [phone] Sancho Sampson, PAC [address] [place] [phone] Social History Tobacco Use Types Packs/Day Years Used Date Smoking Tobacco: Never Assessed Comments Unknown Sex and Gender Information Value Date Recorded Sex Assigned at Not on file Legal Sex Female 5:27 PM CDT Gender Identity Not on file Sexual Orientation Not on file documented as of this encounter Progress Notes * Sancho Sapmson PAC - 04/25/2023 11:56 AM CST PSYCHIATRIC PROGRESS NOTE Maria Ines Donovans is a 88 y.o. female at [facility] for rehabilitation. Prior to coming to rehabilitation facility patient was hospitalized at [facility] from04/11/2023 through 04/15/2023 for lumbar compression [...] None Assessment/Plan: Generalized weakness and deconditioning Receiving [facility] care and physical therapy rehabilitation 04/25/2023 improving [...] system and there may be errors in child care group leader. Despite proof reading the note, there may be mistakes and I apologize for those. By: Sancho Sampson, PAC, 04/25/2023 11:56 AM CAR SANDER SANDER documented in this encounter Plan of Treatment Not on file documented as of this encounter Visit Diagnoses Not on filedocumented in this encounter Care Teams Pump Service Supervisor Relationship Specialty Start Date End Date Lane Ontiveros MD [address] [facility] [address] T[address] [place] [address] PCP - General Internal Medicine 10/08/18 documented as of this encounter
--- OUTSIDE RECORDS SUMMARY | 2024-08-19 09:06 | XMS_ITS | Encounter Summary ---
Author Organization [facility] Address [address] [place] [address] Phone Care Team Providers Care Shovel Log Loader Operator Name Role Phone Lane Ontiveros MD Primary Care Provider Encounter Details Date Type Department Care Team (Late st Contact Info) Description 05/26/2023 Nursing Facility [facility] [address] [place] [phone] Sancho Sampson, PAC [address] [place] [phone] Social History Tobacco Use Types Packs/Day Years Used Date Smoking Tobacco: Never Assessed Comments Unknown Sex and Gender Information Value Date Recorded Sex Assigned at Not on file Legal Sex Female 5:27 PM CDT Gender Identity Not on file Sexual Orientation Not on file documented as of this encounter Progress Notes * Sancho Sampson, TOOTIE - 05/26/2023 4:05 PM CST [facility] PROGRESS NOTE Maria Ines Karyn Jacobs is a 88 y.o. female at [facility] for rehabilitation. Prior to coming to rehabilitation facility patient was hospitalized at [facility] from04/11/2023 through 04/15/2023 for lumbar compression fracture [...] None Assessment/Plan: Generalized weakness and deconditioning Receiving long-term care and physical therapy rehabilitation 05/26/2023 improving [...] system and there may be errors in uniform force captain. Despite proof reading the note, there may be mistakes and I apologize for those. By: Sancho Sampson, PAC, 05/26/2023 4:06 PM ASSISTANT MANAGER TRAINEE STANT MANAGER TRAINEE documented in this encounter Plan of Treatment Not on file documented as of this encounter Visit Diagnoses Not on filedocumented in this encounter Care Teams Shovel Log Loader Operator Relationship Specialty Start Date End Date Lane Ontiveros MD [address] [facility] [address] T[address]LEY [address] [place] [address] PCP - General Internal Medicine 10/08/18 documented as of this encounter
--- OUTSIDE RECORDS SUMMARY | 2024-08-19 09:06 | XMS_ITS ---
Author Name Ronny Estrada Address [address] [place] [address] Phone [phone] Organization [facility] Address [address] [place] [address] Phone [phone] Care Team Providers Care Lease Broker Name Role Phone Ronny Estrada Unavailable [phone] Herb Vasquez Unavailable [phone] Functional Status Mental Status Allergies and Intolerances Encounters Medications Problems Vital Signs Reason for Referral Past Medical History
--- OUTSIDE RECORDS SUMMARY | 2024-08-19 09:06 | XMS_ITS | Encounter Summary ---
Author Organization [facility] Address [address] [place] [address] Phone Care Team Providers Care Clothes Drier Assembler Name Role Phone Lane Ontiveros MD Primary Care Provider Satnley Llamas DRAGLINE OILER Unavailable Unavailabl Micheline Merino POCKET BUILDER Unavailable Unavailabl e Maryam Pena Unavailable [phone] Kelly Huber RN Unavailable [phone] Lissy RochaW Unavailable [phone] Lissy RochaW Unavailable [phone] Lane Ontiveros MD Primary Care Provider Deborah Pimentel RN Unavailable [phone] Encounter Details Date Type Department Care Team (Late st Contact Info) Description 08/25/2017 Orders Only [facility] Provider, MD Erica [facility] [address] Social History Tobacco Use Types Packs/Day Years Used Date Smoking Tobacco: Former Smokeless Tobacco: Never Comments:Smoking History Pac ks/day: 0.5 Packs Alcohol Use Standard Drinks/Week Comments No 0 (1 standard drink = 0.6 oz pur e alcohol) Comments Unknown Sex and Gender Information Value Date Recorded Sex Assigned at Not on file Legal Sex Female 11:52 PM ELECTRICAL ELECTRONICS TECHNICIAN Gender Identity Not on file Sexual Orientation [...] documented as of this encounter Care Teams Clothes Drier Assembler Relationship Specialty Start Date End Date Lane Ontiveros MD PCP - General 08/16/16 04/30/22 Lane Ontiveros MD [address] [place] [address] DR T[address] [place] [address] PCP - General Internal Medicine 05/01/22 Stanley Llamas LCSW Property Claim Rep 07/10/18 07/12/18 Micheline Salomon LPN Care Manager 07/14/18 09/13/18 Maryam Pena [address] [place] [address] [address] [place] [address] ACO Care Cook Mayonnaise 04/26/19 04/26/19 Kelly Huber RN [address] [place] [address] [address] [place] [address] Sheet Metal Mechanic 11/14/20 01/15/21 Lissy Rocha, DRAGLINE OILER [address] [place] [address] [place] [id number] Property Claim Rep 07/30/21 09/09/21 Lissy Rocha LCSW [address] [place] [address] [place] [id number] Property Claim Rep 10/26/21 11/19/21 Deborah Pimentel RN [address] [place] [address] [address] [place] [address] Sheet Metal Mechanic 07/28/24 documented as of this encounter
--- OUTSIDE RECORDS SUMMARY | 2024-08-19 09:06 | XMS_ITS | Encounter Summary ---
Author Organization [facility] Address [address] [address] Care Team Providers Care Electronic Integrated Systems Mechanic Name Role Phone Lane Ontiveros MD Primary Care Provider Lane Ontiveros MD Primary Care Provider Stanley Llamas GRAPHIC DESIGN INTERN Unavailable Unavailabl Micheline Merino [employer] REFRIGERATED TRUCK DRIVER Unavailable Unavailabl e Maryam Pena Unavailable [phone] Kelly Huber RN Unavailable Lissy Rocha GRAPHIC DESIGN INTERN Unavailable Lissy Rocha GRAPHIC DESIGN INTERN Unavailable Lane Ontiveros MD Primary Care Provider Deborah Pimentel RN Unavailable [phone] Reason for Referral * Diagnostic Imaging (Routine) - Closed Specialty Diagnoses / Procedures Referred By Christopher t Referred To Contact Procedures Dexa Axial Skeleton Bone Density [address] Ontiveros MD Phone: tel: fax: [facility] Referral ID Status Reason Start Date Expiration Date Visits Re quested Visits Authorized [id number] Closed 03/03/2019 09/11/2020 1 1 ACTOR MACHINE OPERATOR Encounter Details Date Type Department Care Team (Late st Contact Info) Description 07/19/2010 Orders Only [facility] Health Information Management [address] [place] [id number] [address] Ontiveros MD [address] [place] [address] DR [address] [place] [address] Social History Tobacco Use Types Packs/Day Years Used Date Smoking Tobacco: Heavy Smoker Comments:Smoking History Pac ks/day: 0.5 Packs Comments Unknown Sex and Gender Information Value Date Recorded Sex Assigned at Not on file Legal Sex Female 11:52 PM BONDACTOR MACHINE OPERATOR Gender Identity Not on file Sexual Orientation [...] documented as of this encounter Care Teams Electronic Integrated Systems Mechanic Relationship Specialty Start Date End Date Lane Ontiveros MD PCP - General 08/16/16 04/30/22 Lane Ontiveros MD PCP - General 08/02/08 08/15/16 Lane Ontiveros MD [address] [facility] [address] [facility] [place] [address] PCP - General Internal Medicine 05/01/22 Stanley Llamas LCSW Lean Consultant 07/10/18 07/12/18 Micheline Salomon LPN Care Manager 07/14/18 09/13/18 Maryam Pena [address] [place] [address] [address] [place] [address] ACO Care Cook Tortilla 04/26/19 04/26/19 Kelly Huber RN [address] [place] [address] [address] [place] [address] Imaging Technologist 11/14/20 01/15/21 Lissy Rocha GRAPHIC DESIGN INTERN [address] [place] [address] [place] [address] Lean Consultant 07/30/21 09/09/21 Lissy Rocha GRAPHIC DESIGN INTERN [address] [place] [address] [place] [address] Lean Consultant 10/26/21 11/19/21 Deborah Pimentel, SHERLY [address] [place] [address] [address] [place] [address] Imaging Technologist 07/28/24 documented as of this encounter
--- OUTSIDE RECORDS SUMMARY | 2024-08-19 09:06 | XMS_ITS ---
Author Name Ronny Estrada Address [address] [place] [address] Phone [phone] Organization [facility] Address [address] [place] [address] Phone [phone] Care Team Providers Care Director Of Patient Financial Services Name Role Phone Ronny Estrada Unavailable [phone] Herb Vasquez Unavailable Functional Status Mental Status Allergies and Intolerances Encounters Medications Problems Vital Signs Reason for Referral Past Medical History
--- OUTSIDE RECORDS SUMMARY | 2024-08-19 09:06 | XMS_ITS | Encounter Summary ---
Author Organization [facility] Address [address] [facility] [place] [address] Phone Care Team Providers Care Toe Former Name Role Phone Lane Ontiveros MD Primary Care Provider Encounter Details Date Type Department Care Team (Late st Contact Info) Description 05/08/2023 Nursing Facility [facility] [address] [place] [phone] Sancho Sampson, PAC [address] [place] [address] [phone] Social History Tobacco Use Types Packs/Day Years Used Date Smoking Tobacco: Never Assessed Comments Unknown Sex and Gender Information Value Date Recorded Sex Assigned at Not on file Legal Sex Female 5:27 PM CDT Gender Identity Not on file Sexual Orientation Not on file documented as of this encounter Progress Notes * Sancho Sampson, TOOTIE - 05/08/2023 2:06 PM CST [facility] PROGRESS NOTE Maria Ines Donovans is a 88 y.o. female at [facility] for rehabilitation. Prior to coming to rehabilitation facility patient was hospitalized at [facility] from04/11/2023 through 04/15/2023 for lumbar compression [...] Receiving long-term care and physical therapy rehabilitation 05/08/2023 improving [...] this patient. This note was dictated using M*Airstone fluency dictation system and there may be errors in assembly operator. Despite proof reading the note, there may be mistakes and I apologize for those. By: TOOTIE Vaughn, 05/08/2023 2:06 PM MANAGER OF TRANSPORTATION GER OF TRANSPORTATION documented in this encounter Plan of Treatment Not on file documented as of this encounter Visit Diagnoses Not on filedocumented in this encounter Care Teams Toe Former Relationship Specialty Start Date End Date Lane Ontiveros MD 2 [facility] [address] [address] PCP - General Internal Medicine 10/08/18 documented as of this encounter
--- OUTSIDE RECORDS SUMMARY | 2024-08-19 09:06 | XMS_ITS | Encounter Summary ---
Author Organization [facility] Address [address] [facility] [place] [address] Phone Care Team Providers Care Level Vial Inside Grinder Name Role Phone Shweta Jimenez MD Primary Care Provider Encounter Details Date Type Department Care Team (Late st Contact Info) Description 05/29/2023 Nursing Facility [facility] [address] [place] [phone] Sancho Sampson PAC [address] [place] [address] [phone] Social History Tobacco Use Types Packs/Day Years Used Date Smoking Tobacco: Never Assessed Comments Unknown Sex and Gender Information Value Date Recorded Sex Assigned at Not on file Legal Sex Female 5:27 PM CDT Gender Identity Not on file Sexual Orientation Not on file documented as of this encounter Progress Notes * Sancho Sampson PAC - 05/29/2023 2:17 PM CST [facility] DIS[facility] SUMMARY Name: Maria Ines Jacobs Age: [...] COURSE: Maria Ines Jacobs was admitted to detention facility for acute care rehabilitation. Prior to coming to rehabilitation facility patient was hospitalized at [facility] from04/11/2023 through 04/15/2023 for lumbar compression fracture which was treated conservatively. While at the rehabilitation facility, the patient received detention care and physical therapy rehabilitation. The patient [...] have spent time coordinating care for this detention facility discharge: Greater than 30 minutes spent in coordinating care This note was dictated using amBX fluency dictation system and there may be errors in director of regulatory affairs. Despite proof reading the note, there may be mistakes and I apologize for those. Signed: TOOTIE Vaughn, 05/29/2023, 2:18 PM HARBOR TUG CAPTAIN OR TUG CAPTAIN documented in this encounter Plan of Treatment Not on file documented as of this encounter Visit Diagnoses Not on filedocumented in this encounter Care Teams Level Vial Inside Grinder Relationship Specialty Start Date End Date Shweta Jimenez MD [address] [place] [address] DR [address] [place] [address] PCP - General Internal Medicine 10/08/18 documented as of this encounter
--- OUTSIDE RECORDS SUMMARY | 2024-08-19 09:06 | XMS_ITS | Encounter Summary ---
Author Organization [facility] Address [address] [place] [address] Phone Care Team Providers Care Electrical Electronics Technician Name Role Phone Lane Ontiveros MD Primary Care Provider Lissy RochaW Unavailable [phone] Lane Ontiveros MD Primary Care Provider Deborah Pimentel RN Unavailable [phone] Encounter Details Date Type Department Care Team (Late st Contact Info) Description 11/12/2021 Telephone [facility] [place] [facility] [address] [place] [address] [address] [place] [address] Chanda Renteria CMA Social History [...] 07/30/2021 How often do you attend chur or scientologist services? Never 07/30/2021 Do you belong to any clubs o r organizations such as temple groups, unions, fraternal or athletic groups, or [...] place to sleep or slept in a mcfp (including now)? No 07/30/2021 Comments No Sex and Gender Information Value Date Recorded Sex Assigned at Not on file Legal Sex Female 11:52 PM RUBBER BLOCK LAYER Gender Identity Not on file Sexual Orientation [...] documented as of this encounter Care Teams Electrical Electronics Technician Relationship Specialty Start Date End Date Lane Ontiveros MD PCP - General 08/16/16 04/30/22 Lane Ontiveros MD [address] [place] [address] DR [address] [place] [address] PCP - General Internal Medicine 05/01/22 Lissy Rocha LCSW [address] [place] [address] [place] [address] Script Manager 10/26/21 11/19/21 Deborah Pimentel RN [address] [place] [address] DR T[address] [facility] [place] [address] Dental Ceramist 07/28/24 documented as of this encounter
--- OUTSIDE RECORDS SUMMARY | 2024-08-19 09:06 | XMS_ITS | Encounter Summary ---
Author Organization [facility] Address [address] [place] [address] Phone Care Team Providers Care Public Safety Teacher Name Role Phone Shweta Jimenez MD Primary Care Provider Encounter Details Date Type Department Care Team (Late st Contact Info) Description 04/17/2023 Nursing Facility [facility] [address] [place] [phone] Audelia Kovacs MD [address] [place] [address] Social History Tobacco Use Types Packs/Day Years Used Date Smoking Tobacco: Never Assessed Comments Unknown Sex and Gender Information Value Date Recorded Sex Assigned at Not on file Legal Sex Female 5:27 PM CDT Gender Identity Not on file Sexual Orientation Not on file documented as of this encounter H&P Notes * Mazin Escamilla - 04/17/2023 11:[address] [facility] Shel[facility] History and Physical Chief Complaint: Fall, low back pain, lumbar compression fx HPI: Maria Ines Jacobs is a 88 y.o. female who has transferred to [facility] for post-acutecare and rehabilitation. Prior to coming to rehabilitation facility patient was hospitalized at [facility] from 04/11/2023 through 04/15/2023 for fall [...] medical records Review of Prior External Notes: [facility] records Allergies: is allergic to sulfasalazine, [...] she lives alone. Advance Care Planning: Aggregate [id number] time, greater than 16 minutes was spent discussing end-of-life care planning with patient/family and/or Power of Stick Puller. Discussed CPR, Intubation, treatment goals, and Quality of life/Intensity of care. Patient desires CPR-Full Treatment Polst Form Completed. Mazin Masters, acting as a scribe, am personally taking down the notes in the presence of Dr. Audelia Kovacs M.D. Take no action on this note until reviewed and authenticated by the physician. By: AMZIN ESCAMILLA, 04/17/2023 Primary Care Physician: SHWETA JIMENEZ MD I evaluated and examined the patient in presence of scribe Mazin Escamilla and reviewed the medical records and the notes above and agree with the content and details of the notes. By: Audelia Kovacs M.D.. Cosigned by Audelia Kovacs MD at 07/01/2023 10:42 AM TRACK HELPER K HELPER K HELPER documented in this encounter Plan of Treatment Not on file documented as of this encounter Visit Diagnoses Not on filedocumented in this encounter Care Teams Public Safety Teacher Relationship Specialty Start Date End Date Shweta Jimenez MD 2 [facility] [address] [address] PCP - General Internal Medicine 10/08/18 documented as of this encounter
--- OUTSIDE RECORDS SUMMARY | 2024-08-19 09:06 | XMS_ITS | Encounter Summary ---
Author Organization [facility] Address [address] [facility] [place] [address] Phone Care Team Providers Care Power Washer Name Role Phone Lane Ontiveros MD Primary Care Provider Encounter Details Date Type Department Care Team (Late st Contact Info) Description 05/22/2023 Nursing Facility [facility] [address] [place] [phone] Sancho Sampson, PAC [address] [place] [address] Social History Tobacco Use Types Packs/Day Years Used Date Smoking Tobacco: Never Assessed Comments Unknown Sex and Gender Information Value Date Recorded Sex Assigned at Not on file Legal Sex Female 5:27 PM CDT Gender Identity Not on file Sexual Orientation Not on file documented as of this encounter Progress Notes * Sancho Sampson, TOOTIE - 05/22/2023 3:46 PM CST [facility] PROGRESS NOTE Maria Ines Donovans is a 88 y.o. female at [facility] for rehabilitation. Prior to coming to rehabilitation facility patient was hospitalized at [facility] from04/11/2023 through 04/15/2023 for lumbar compression [...] care home care and physical therapy rehabilitation 05/22/2023 improving [...] this week. This note was dictated using M*AdVolume fluency dictation system and there may be errors in educational fundraising director. Despite proof reading the note, there may be mistakes and I apologize for those. By: Sancho Sampson, TOOTIE, 05/22/2023 3:46 PM BUSINESS CONTINUITY COORDINATOR NESS CONTINUITY COORDINATOR documented in this encounter Plan of Treatment Not on file documented as of this encounter Visit Diagnoses Not on filedocumented in this encounter Care Teams Power Washer Relationship Specialty Start Date End Date Lane Ontiveros MD 2 [facility] [address] [address] PCP - General Internal Medicine 10/08/18 documented as of this encounter
--- OUTSIDE RECORDS SUMMARY | 2024-08-19 09:06 | XMS_ITS | Encounter Summary ---
Author Organization [facility] Address [address] [facility] [place] [address] Phone Care Team Providers Care Screen Machine Operator Name Role Phone Lane Ontiveros MD Primary Care Provider Encounter Details Date Type Department Care Team (Late st Contact Info) Description 05/19/2023 Nursing Facility [facility] [address] [place] [phone] Sancho Sampson, PAC [address] [place] [phone] Social History Tobacco Use Types Packs/Day Years Used Date Smoking Tobacco: Never Assessed Comments Unknown Sex and Gender Information Value Date Recorded Sex Assigned at Not on file Legal Sex Female 5:27 PM CDT Gender Identity Not on file Sexual Orientation Not on file documented as of this encounter Progress Notes * Sancho Sampson, TOOTIE - 05/19/2023 11:50 AM CST [facility] PROGRESS NOTE Maria Ines Donovans is a 88 y.o. female at [facility] for rehabilitation. Prior to coming to rehabilitation facility patient was hospitalized at [facility] from04/11/2023 through 04/15/2023 for lumbar compression [...] None Assessment/Plan: Generalized weakness and deconditioning Receiving group home care and physical therapy rehabilitation 05/19/2023 improving [...] system and there may be errors in golf technician. Despite proof reading the note, there may be mistakes and I apologize for those. By: TOOTIE Vaughn, 05/19/2023 11:51 AM COMPUTER INSTALLER UTER INSTALLER documented in this encounter Plan of Treatment Not on file documented as of this encounter Visit Diagnoses Not on filedocumented in this encounter Care Teams Screen Machine Operator Relationship Specialty Start Date End Date Lane Ontiveros MD [address] [facility] [address] [place] [address] PCP - General Internal Medicine 10/08/18 documented as of this encounter
--- OUTSIDE RECORDS SUMMARY | 2024-08-19 09:06 | XMS_ITS | Encounter Summary ---
Author Organization [facility] Address [address] [place] [address] Phone Care Team Providers Care Dumbwaiter Operator Name Role Phone Lane Ontiveros MD Primary Care Provider Encounter Details Date Type Department Care Team (Late st Contact Info) Description 04/22/2023 Nursing Facility [facility] [address] [place] [phone] Sancho Sampson, PAC [address] [place] [address] [id number] Social History Tobacco Use Types Packs/Day Years Used Date Smoking Tobacco: Never Assessed Comments Unknown Sex and Gender Information Value Date Recorded Sex Assigned at Not on file Legal Sex Female 5:27 PM CDT Gender Identity Not on file Sexual Orientation Not on file documented as of this encounter Progress Notes * Sancho Sampson, TOOTIE - 04/22/2023 12:08 PM CST [facility] PROGRESS NOTE Maria Ines Karyn Jacobs is a 88 y.o. female at [facility] for rehabilitation. Prior to coming to rehabilitation facility patient was hospitalized at [facility] from04/11/2023 through 04/15/2023 for lumbar compression [...] nursing home care and physical therapy rehabilitation Lumbar [...] system and there may be errors in ink grinder. Despite proof reading the note, there may be mistakes and I apologize for those. By: Sancho Sampson, PAC, 04/22/2023 12:15 PM ORDER ANALYST R ANALYST documented in this encounter Plan of Treatment Not on file documented as of this encounter Visit Diagnoses Not on filedocumented in this encounter Care Teams Dumbwaiter Operator Relationship Specialty Start Date End Date Lnae Ontiveros MD [address] [place] [address] DR T[address] [place] [id number] PCP - General Internal Medicine 10/08/18 documented as of this encounter
--- OUTSIDE RECORDS SUMMARY | 2024-08-19 09:06 | XMS_ITS | Clinical Summary ---
Author Organization [facility] Address [address] [place] [address] Phone Care Team Providers Care Aoc Plans Intelligence Officer Name Role Phone Lane Ontiveros MD Primary Care Provider Allergies Active Allergy Reactions Criticality Noted Date Comments Iodine Rash Low 10/10/2018 Lactose Intolerance (Gi) Diarrhea Low 10/10/2018 Sulfasalazine Rash High 10/10/2018 Medications ergocalciferol (VITAMIN D) 81733 UNIT Capsule Take 50,000 Units by mouth [...] Documents on File Type Date Recorded Patient Platinum Smith Expl anation Power of Radar Technician for Health Care 10/15/2018 11:48 AM POA 07/14/09 * Full Code (Latest Code Status on File) Date Activated Date Inactivated Comments 10/21/2018 5:11 PM Care Teams Aoc Plans Intelligence Officer Relationship Specialty Start Date End Date Lane Ontiveros MD [address] [place] [address] DR T[address]LEY [address] [place] [phone] PCP - General Internal Medicine 10/08/18
--- OUTSIDE RECORDS SUMMARY | 2024-08-19 09:07 | XMS_ITS | Referral Summary ---
Author Organization [facility] Address [address] [place] [address] Care Team Providers Care Market Research Assistant Name Role Phone Shweta Ontiveros MD Primary Care Provider Deborah Pimentel RN Unavailable Allergies Active Allergy Reactions Criticality Noted Date [...] the rectum 3 Active vit A,C and L-nruytr-kzhhewl s (Ocuvite with Lutein) 300 mcg-200 mg-27 [...] CDT): #HFrEF - Follows with Dr. Wolfe ([facility]) - Most recent TTE: 07/11/23, [...] 2-4 weeks fo rdischarge Discharge infom from [facility] provided as below Outpatient Follow-Up Plan: Follow-up with [facility]:General Cardiology in 2-4 weeks. Please call to make an appointment when the patient is ready for discharge. If the appointment has not been scheduled by the time of discharge, please provide the following information to the patient on the discharge instructions: If you have not received information within a week of discharge regarding a follow-up appointment with [facility], please contact our office at . Thank you for involving us in the care of this patient. If you have any additional questions or concerns during this admission, please contact the respective cardiology consult team listed on Zscaler OR, from Friday-Friday, 7:30 am - 4:30 pm, you may reach the Cardiology Consult Line at . Fall 08/25/2023 Chronic deep vein thrombosis (DVT) of left upper extremity 07/15/2023 Assessment & Plan (07/15/2023 11:01 AM MEDICAL OFFICE ASSISTANT): - Currently on heparin gtt - Could consider stopping given chronicity of DVT Shock 07/10/2023 Assessment & Plan (07/15/2023 6:29 AM MEDICAL OFFICE ASSISTANT): - 07/09 Transferred to SICU for [...] 07/09/2023 Assessment & Plan (07/14/2023 5:41 AM MEDICAL OFFICE ASSISTANT): - Cr 0.65 on admission - Cr elevated, now downtrending. Peak around 2 - Monitor urine output, gentle IVF hydration - Follow BMP daily Closed fracture of proximal end of right tibia, unspecified fracture morphology, initial encounter 07/08/2023 Fracture of right tibia and fibula 07/08/2023 Assessment & Plan (07/08/2023 3:26 PM MEDICAL OFFICE ASSISTANT): - Orthopedics consult - Splinted in ED - s/p OR 07/08 for IMN right tibia - Ancef x 24h post op - WBAT RLE - Pain control - PT/OT Syncope 07/08/2023 Assessment & Plan (07/11/2023 7:43 AM MEDICAL OFFICE ASSISTANT): - Frequent falls recently reported by patient's daughter - Telemetry monitoring - EKG with left BBB (known history) - See shock below Delirium 07/08/2023 Assessment & Plan (07/13/2023 5:19 PM MEDICAL OFFICE ASSISTANT): - Delirium precautions - Ramelteon HS Anxiety 07/08/2023 Assessment & Plan (11/29/2023 1:58 PM CDT): #Panic attacks - Intermittent 1L 20- 25min of O2 at home about 1x/week when feels anxious - continue home bupropion and duloxetine Assessment & Plan (07/15/2023 6:25 AM MEDICAL OFFICE ASSISTANT): - Continue home duloxetine, bupropion, mirtazapine - Holding home Xanax - Atarax daily PRN Depression 07/08/2023 Assessment & Plan (07/08/2023 11:56 AM MEDICAL OFFICE ASSISTANT): SEE ANXIETY Overactive bladder 07/08/2023 Assessment & Plan (07/13/2023 5:20 PM MEDICAL OFFICE ASSISTANT): - Continue home Myrbetriq (temporarily held) Acute pain due to trauma 07/08/2023 Assessment & Plan (12/02/2023 4:40 PM CDT): - Tylenol 1000mg Q6H - Oxycodone 5mg Q4H PRN - Robaxin 500mg TID PRN Assessment & Plan (07/14/2023 5:41 AM MEDICAL OFFICE ASSISTANT): - tylenol 1000 mg q6h PRN [...] 12/04 Assessment & Plan (07/15/2023 6:27 AM MEDICAL OFFICE ASSISTANT): - 07/08: Pending OR with orthopedics [...] 023 Assessment & Plan (07/15/2023 6:26 AM MEDICAL OFFICE ASSISTANT): - NSGY consult - Non operative management -TLSO when OOB - Still need upright XR in TLSO when able, call NSGY to review - Q4H neuro checks - Outpatient follow up in 6 weeks with NSGY Nerve compression 04/30/2022 History of 2019 novel coronavirus disease (COVID -19) 02/26/2022 Right wrist drop 01/02/2022 Overview (01/02/2022): Added automatically from request for surgery [id number] Injury of right posterior interosseous nerve Overview (01/02/2022): Added automatically from request for surgery [id number] Radial nerve palsy, right 12/17/2021 Closed fracture [...] Daughter and son-in-law help and 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 Does not manage her own medications - PT/OT Assessment & Plan (08/02/2021 1:56 PM CDT): Mechanical fall CT head and neck negative advil prn for headache w/ food F/u prn Arthritis of knee, left 02/27/2021 Elevated d-dimer 11/13/2020 Left bundle branch block (LB BB) determined by electrocardiography 11/13/2020 Medicare annual wellness visit, subsequent 03/22 Assessment & Plan (03/22/2019 11:00 AM MEDICAL OFFICE ASSISTANT): Self assessment detail includes: No current home safety or functional concerns at this time per assessment scales. Hearing and vision intact. Admits to use smoke and carbon monoxide alarms. The fall risk is minimal. The cognitive screening was negative for dementia, depression anxiety both appear to be stable on current medication. Pt has a living will and durable power of estate planning attorney in place. In regard to social [...] 03/22/2019 Assessment & Plan (03/22/2019 10:58 AM MEDICAL OFFICE ASSISTANT): Decline urologist consultation this point time, [...] 08/27/2017 Assessment & Plan (03/22/2019 10:52 AM MEDICAL OFFICE ASSISTANT): Cnt. To see pain management, , for pain management. Cnt. With Cymbalta as prior advised. Multiple-type hyperlipidemia 02/14/2016 Overview (08/23/2016): MIXED HYPERLIPIDEMIA Assessment & Plan (11/29/2023 2:01 PM CDT): - continue home atorvastatin Assessment & Plan (03/22/2019 10:56 AM MEDICAL OFFICE ASSISTANT): Stable with recent labs indicated total cholesterol 172, triglycerides 125, LDL 94, HDL 53. Cnt. Heart healthy diet, mild daily exercise. ASA discussed, but deferred given risks vs benefit. Hypothyroid 02/14/2016 Overview (08/23/2016): HYPOTHYROIDISM NOS Assessment & Plan (11/29/2023 1:59 PM CDT): - continue home synthroid Assessment & Plan (07/08/2023 12:06 PM MEDICAL OFFICE ASSISTANT): - Continue Synthroid Generalized osteoarthritis 10/02/2013 Overview (08/23/2016): GENERAL OSTEOARTHROSIS Gastroesophageal reflux disease 10/02/2013 Overview (08/23/2016): ESOPHAGEAL REFLUX Assessment & Plan (11/29/2023 2:01 PM CDT): - continue home pepcid Age-related osteoporosis with current pathologic al fracture 10/02/2013 Overview (08/23/2016): OSTEOPOROSIS NOS Normocytic anemia Assessment & Plan (03/22/2019 10:52 AM MEDICAL OFFICE ASSISTANT): Anemia secondary to femur fracture in [...] 12/06/19 Assessment & Plan (06/23/2017 2:21 PM MEDICAL OFFICE ASSISTANT): Recommended patient to continue to increase heart healthy diet with adequate fruits, vegetables, and plenty of water along with mild-moderate daily exercise as tolerated. Pleurisy 06/23/2017 09/08/2017 Assessment & Plan (06/23/2017 2:23 PM MEDICAL OFFICE ASSISTANT): Recommended Jennie De La Cruz for cough suppression to take 1-2 tabs t.i.d. p.r.n. additionally I advised her she can take plain naproxen only on a p.r.n. basis or Advil she cannot take both. Follow-up in office in 4 days is recommended Acute bronchitis due to othe r specified organisms 06/23/2017 09/08/2017 Assessment & Plan (06/23/2017 2:22 PM MEDICAL OFFICE ASSISTANT): Recommended Levaquin 500 mg once daily [...] course of 10 days, increased fluids, Mucinex xhkk-xsv-ogoocpd for daytime cough and Tessalon Perles for [...] NEC Assessment & Plan (06/23/2017 2:23 PM MEDICAL OFFICE ASSISTANT): Possible COPD exacerbation due to acute bronchitis. Please refer to acute bronchitis plan for management of acute respiratory tract infection Controlled type 2 diabetes m ellitus without complication 05/08/2012 03/10/2017 Overview (08/23/2016): Diabetes [...] drink = 0.6 oz pur e alcohol) [facility] Utilities Answer Date Recorded In the past 12 months has [employer], [employer], oil, or water [employer] threatened to shut off services in your [...] often do you attend chur ch or jewish services? Never 11/30/2023 Do you belong to any clubs o r organizations such as religious groups, unions, fraternal or athletic groups, or [...] place to sleep or slept in a penitentiary (including now)? No 07/11/2023 Housing Stability Vital Sign Answer Timothy e Recorded In the last 12 months, was t here a time when you were not able to pay the mortgage or rent on time? No 11/30/2023 In the past 12 months, how m any times have you moved where you were living? 0 11/30/2023 At any time in the past 12 m [place], were you homeless or living in a penitentiary (including now)? No 11/30/2023 Personal Safety Answer Date Recorded Have you ever been in or are you currently in a harmful physical or emotional relationship or is someone making you feel afraid or unsafe? Denies 12/02/2023 Comments No Sex and Gender Information Value Date Recorded Sex Assigned at Not on file Legal Sex Female 11:52 PM MEDICAL OFFICE ASSISTANT Gender Identity Not on file Sexual [...] on file Medical Devices Implanted Type Area Microsoft Dynamics Ax Consultant Device Identifier Shelf Expiration Date Model / Serial / Lot [employer] Chavez Angio-Seal Vip 6fr Closere Device [id number] - [id number] - [id number] Implanted:Qty: 1 on 07/21/2023 by Tc Enriquez MD at [facility] Collagen Left: Common Femoral Artery [employer] Chavez 04/03/2024 [id number] / [id number] / [id number] Mendoza [employer] Nephew/Richco/Or tho Trigen [place]-Nail 8.5mm 33cm Tibia Nail Intramedullary Titanium [id number] - [id number] Implanted:Qty: 1 on 07/08/2023 by Emiliano Wagner MD at [facility] Nail Right: Tibia [employer]hew[employer]Rich[employer]/ Ortho [id number] 02/29/2032 [id number] / / [id number] M[employer]hew[employer]Richco/Or tho 4.5mm 6.5mm Low Profile Internal Capture Femur Screw Bone Trigen [id number] - [id number] Implanted:Qty: 1 on 07/08/2023 by Emiliano Wagner MD at [facility] Screw Right: Tibia [employer]Rich[employer]/ Ortho [id number] 08/21/2031 [id number] / / [id number] [employer]Rich[employer]/Or tho 4.5mm 60mm Low Profile Internal Capture Femur Screw Bone Trigen [id number] - [id number] Implanted:Qty: 1 on 07/08/2023 by Emiliano Wagner MD at [facility] Screw Right: Tibia [employer]Rich[employer]/ Ortho [id number] 06/28/2030 [id number] / / [id number] [employer]Rich[employer]/Or tho 4.5mm 40mm Low Profile Internal Capture Femur Screw Bone Trigen [id number] - S0 - [id number] Implanted:Qty: 1 on 07/08/2023 by Emiliano Wagner MD at [facility] Screw Right: Tibia [employer]Rich[employer]/ Ortho [id number] 01/15/2032 [id number] / 0 / [id number] [employer]Rich[employer]/Or tho 4.5mm 32.5mm Low Profile Internal Capture Femur Screw Bone Trigen [id number] - [id number] Implanted:Qty: 1 on 07/08/2023 by Emiliano Wagner MD at [facility] Screw Right: Tibia [employer]Rich[employer]/ Ortho [id number] 05/22/2031 [id number] / / [id number] [employer]Rich[employer]/Or tho 4.5mm 25mm Low Profile Internal Capture Femur Screw Bone Trigen 13070691 - [id number] Implanted:Qty: 1 on 07/08/2023 by Emiliano Wagner MD at [facility] Screw Right: Tibia [employer]Rich[employer]/ Ortho [id number] 08/19/2031 [id number] / / [id number] [employer]Rich[employer]/Or tho 5mm 40mm Low Profile Internal Hex Femur Screw Bone Trigen 63962700 - S0 - [id number] Implanted:Qty: 1 on 07/08/2023 by Emiliano Wagner MD at [facility] Screw Right: Tibia [employer]Rich[employer]/ Ortho [id number] / 0 / 4.5mm Lcp Condylar Plates Implanted:Qty: 1 on 07/10/2018 by Shweta Iverson MD at [facility] Right: Femur DEPUY [employer] COMPANIES C1713 222.656 / / Synthes 02205.065 5mm 4.4mm 65mm Cannulated Self Tap Self Drill Lock 4mm Full - [id number] Implanted:Qty: 1 on 07/10/2018 by Shweta Iverson MD at [facility] Right: Femur Synthes I 02205.06 5 / / Synthes 02205.075 5mm 4.4mm 75mm Cannulated Self Tap Self Drill Lock 4mm Full - [id number] Implanted:Qty: 2 on 07/10/2018 by Shweta Iverson MD at [facility] Right: Femur Synthes I 02205.07 5 / / Synthes 214.840 4.5mm 8mm 40mm Self Tap Large Hexagonal Socket Cortex Screw Bone - [id number] Implanted:Qty: 1 on 07/10/2018 by Shweta Iverson MD at [facility] Right: Femur Synthes I 214.840 / / 5.0mm Locking Screw, Self-Tapping With T25 Stardrive Recess Implanted:Qty: 1 on 07/10/2018 by Shweta Iverson MD at [facility] Right: Femur DEPUY [employer] C1713 212.208 / / Synthes 212.218 5mm 4.4mm 48mm Self Tap Lock Stardrive Conical Head Cortical - [id number] Implanted:Qty: 1 on 07/10/2018 by Shweta Iverson MD at [facility] Right: Femur LessonFace13 212.218 / / 7.3mm Cannulated Locking Screw Implanted:Qty: 1 on 07/10/2018 by Shweta Iverson MD at [facility] Right: Femur [employer]PU[employer] C1713 02.207.08 0 / / 5.0mm Locking Screws, Self-Tapping With T25 Stardrive Recess Implanted:Qty: 1 on 07/10/2018 by Shweta Iverson MD at [facility] Right: Femur DEPUY [employer]13 212.216 / / 5.0mm Locking Screws, Self-Tapping With T25 Stardrive Recess Implanted:Qty: 2 on 07/10/2018 by Shweta Iverson MD at [facility] Right: Femur DEPUY [employer] C1713 212.214 / / Axogen Inc Axoguard 3.5mm 40mm Reinforce Wrap Protector Nerve Porcine [id number] - [id number] Implanted:Qty: 1 on 04/30/2022 by Olivia Baires MD at [facility] [employer]ogen Inc 07/08/2023 [id number] / / [id number] Mendoza & Nephew/Richco/Or tho Evos Mini 2.7mm 4.5mm 38mm Self Tap Cortex T8 Screw Bone Sterile [id number] - [id number] Implanted:Qty: 1 on 12/02/2023 by Mariann Dawson MD at [facility] Right: Ankle [employer]Rich[employer]/ Ortho [id number] / / M[employer]hew[employer]Rich[employer]/Or tho Evos Mini 2.7mm 4.5mm 11mm Self Tap Cortex T8 Screw Bone [id number] - [id number] Implanted:Qty: 1 on 12/02/2023 by Mariann Dawson MD at [facility] Right: Ankle [employer]Rich[employer]/ Ortho [id number] / / M[employer]za [employer] Nephew[employer]Richco/Or tho 2.7mm 4.3mm 16mm Self Tap Lock T8 2mm Screw Bone Evos [id number] - [id number] Implanted:Qty: 1 on 12/02/2023 by Mariann Dawson MD at [facility] Right: Ankle [employer]Rich[employer]/ Ortho [id number] / / M[employer]za [employer] Nephew/Richco/Or tho Evos Mini 2.7mm 4.5mm 15mm Self Tap Cortex T8 Screw Bone [id number] - [id number] Implanted:Qty: 1 on 12/02/2023 by Mariann Dawson MD at [facility] Right: Ankle [employer]Rich[employer]/ Ortho [id number] / / M[employer]hew/Richco/Or tho Evos Mini 2.7mm 4.5mm 10mm Self Tap Cortex T8 Screw Bone [id number] - [id number] Implanted:Qty: 1 on 12/02/2023 by Mariann Dawson MD at [facility] Right: Ankle [employer]Rich[employer]/ Ortho [id number] / / M[employer]hew[employer]Rich[employer]/Or tho Evos Mini 2.7mm 4.5mm 12mm Self Tap Cortex T8 Screw Bone [id number] - [id number] Implanted:Qty: 1 on 12/02/2023 by Mariann Dawson MD at [facility] Right: Ankle [employer]Rich[employer]/ Ortho [id number] / / M[employer]hew[employer]Rich[employer]/Or tho Evos 3.5mm 70mm Self Tap Cortex Screw Bone Sterile [id number] - [id number] Implanted:Qty: 1 on 12/02/2023 by Mairann Dawson MD at [facility] Right: Ankle [employer]Rich[employer]/ Ortho [id number] / / M[employer]za [employer]hew/Rich[employer]/Or tho Evos 3.5mm 12mm Self Tap Cortex Screw Bone Sterile [id number] - [id number] Implanted:Qty: 3 on 12/02/2023 by Mariann Dawson MD at [facility] Right: Ankle [employer]Rich[employer]/ Ortho [id number] / / M[employer]hew[employer]Rich[employer]/Or tho Evos 3.5mm 36mm Self Tap Cortex Screw Bone Sterile [id number] - [id number] Implanted:Qty: 1 on 12/02/2023 by Mariann Dawson MD at [facility] Right: Ankle [employer]Rich[employer]/ Ortho [id number] / / M[employer]za [employer] Nephew/Richco/Or tho Evos 3.5mm 42mm Self Tap Cortex Screw Bone Sterile [id number] - [id number] Implanted:Qty: 1 on 12/02/2023 by Mariann Dawson MD at [facility] Right: Ankle M[employer]Rich[employer]/ Ortho [id number] / / M[employer]hew/Richco/Or tho Evos 3.5mm 38mm Self Tap Cortex Screw Bone Sterile [id number] - [id number] Implanted:Qty: 1 on 12/02/2023 by Mariann Dawson MD at [facility] Right: Ankle M[employer]/Rich[employer]/ Ortho [id number] / / Mendoza [employer] Nephew/Richco/Or tho Evos [id number] 16.3x1.7mm 7 Hole Low Profile Variable Angle Lock [id number] - [id number] Implanted:Qty: 1 on 12/02/2023 by Mariann Dawson MD at [facility] Right: Ankle [employer]/Rich[employer]/ Ortho [id number] / / M[employer]za [employer]hew/Richco/Or tho Evos 3.5mm 110mm Self Tap Cortex Screw Bone Sterile [id number] - [id number] Implanted:Qty: 1 on 12/02/2023 by Mariann Dawson MD at [facility] Right: Ankle [employer]Rich[employer]/ Ortho [id number] / / Procedures Procedure Name Priority Date/Time [...] 03/05/2016 8:03 AM CDT Mammogram Performed by: DR BARRETT MAMM W ILAN BI Acc#: [id number] Screening Mamm Bi Acc#: [id number] DATE OF EXAM: Mar 04 2016 CLINICAL [...] Mar 04 2016 4:59P Approved Electronically by: RONALD Clarke, DR HIGH on: Mar 05 2016 8:03A Attending: DR SHWETA ONTIVEROS Requesting: DR SHWETA ONTIVEROS Requesting Attending Attending ID: [id number] Requesting ID: [id number] Report To 1 ID: [id number] Report To 1 Name: DR SHWETA ONTIVEROS Report To 1 FAX: [phone] NextGen Order #: Procedure Note Provider, MD Erica - 09/25/2016 Mammogram Performed by: DR BARRETT MAMM W ILAN BI Acc#: [id number] Screening Mamm Bi Acc#: [id number] DATE OF EXAM: Mar 04 2016 CLINICAL [...] Mar 04 2016 4:59P Approved Electronically by: RONALD Clarke, DR HIGH on: Mar 05 20168:03A Attending: DR SHWETA ONTIVEROS Requesting: DR SHWETA ONTIVEROS Requesting Attending Attending ID: [id number] Requesting ID: [id number] Report To 1 ID: [id number] Report To 1 Name: DR SHWETA ONTIVEROS Report To 1 FAX: [phone] NextGen Order #: Historical Provider MD MEYER MAMMO PROCEDURES Lauren l Result * COLONOSCOPY (02/06/2010 12:00 AM CDT) Anatomical Region Laterality Modality Other Narrative 02/06/2010 12:00 AM CDT Ordered by an unspecified provider. Procedure Note ProviderErica MD - 02/06/2010 12:00 AM CDT PROCEDURE REPORT Patient: NESTOR REY Account: [id number] Room No: : 1935 Patient Type: [facility] Attend.: Edmond Mayes M.D. Admit Date: 02/06/2010 [...] female. ENDOSCOPIST: Edmond Mayes M.D. INSTRUMENT USED: Envoyn video endoscope. MEDICATIONS: Per Anesthesia. FINDINGS: The [...] on a p.r.n. basis. Edmond Mayes M.D. MIRELA/ms TD: 02/06/2010 14:27 CC: Shweta Ontiveros M.D. PROCEDURE REPORT Authenticated by Edmond Mayes MD On 02/09/2010 09:20:31 AM us Historical Provider ENDOSCOPY PROCEDURES Lauren l Result from Last 3 Months or Most Recently Relevant to Health Maintenance Insurance MEDICARE [facility] IDPA MEDICARE IDPA [facility] MEDICARE SUPPLEMENT [facility] GENERIC MEDICARE [facility] MEDICARE IDME [facility] MEDICARE SUPPLEMENT Advance Directives For more information, please contact: [phone] Documents on File Type Date Recorded Patient Hot Dipper Expl anation ADVANCE DIRECTIVE 07/24/2023 11:05 PM POWER OF SKATE MAKER-FINANCIAL/MEDIC AL ADVANCE DIRECTIVE 07/03/2022 10:31 AM Alex r of Manager Environmental Affairs-Financial ADVANCE DIRECTIVE 05/03/2022 10:06 AM Pow er of Manager Environmental Affairs-Medical ADVANCE DIRECTIVE 07/23/2018 9:35 AM Power of Manager Environmental Affairs ADVANCE DIRECTIVE 07/23/2018 9:35 AM ADVANCE DIRECTIVE [...] Kyra Daughter Health Care Agent Care Teams Market Research Assistant Relationship Specialty Start Date End Date Shweta Ontiveros MD [address] [place] [address] [address] [place] [address] PCP - General Internal Medicine 05/01/22 Deborah Pimentel RN [address] [place] [address] [address] [place] [address] Human Resources Compliance Manager 07/28/24
== END 2024-08-19 08:52 | disposition home or self-care (01) ==
PROVIDERS: PCP Family Medicine; Visit Provider Family Medicine
DX: S82.832D Other fracture of upper and lower end of left fibula, subsequent encounter for closed fracture with routine healing (principal); M25.462 Effusion, left knee
CPT/HCPCS: 73562

== ENCOUNTER 2024-09-29 15:14 | Outpatient (NON) | payer MEDICARE, SELFPAY ==
--- OUTSIDE RECORDS SUMMARY | 2024-09-29 15:21 | XMS_ITS | Encounter Summary ---
Author Organization [facility] Address [address] [address] Phone Care Team Providers Care Card Sorter Name Role Phone Lane Ontiveros MD Primary Care Provider Encounter Details Date Type Department Care Team (Late st Contact Info) Description 05/26/2023 Nursing Facility [facility] [address] [place] [phone] Sancho Sampson, PAC [address] [place] [phone] Social History Tobacco Use Types Packs/Day Years Used Date Smoking Tobacco: Never Assessed Comments Unknown Sex and Gender Information Value Date Recorded Sex Assigned at Not on file Legal Sex Female 5:27 PM CDT Gender Identity Not on file Sexual Orientation Not on file documented as of this encounter Progress Notes * Sancho Sampson, TOOTIE - 05/26/2023 4:05 PM CST [facility] PROGRESS NOTE Maria Ines Karyn Jacobs is a 88 y.o. female at [facility] for rehabilitation. Prior to coming to rehabilitation facility patient was hospitalized at [facility] from04/11/2023 through 04/15/2023 for lumbar compression fracture which was treated conservatively. Subjective: Interval History: I am seeing patient for a skilled visit. She is sitting comfortably in her chair. Says she feels â€œgoodâ€ . No acute symptoms or concerns this [...] Receiving alf care and physical therapy rehabilitation 05/26/2023 improving [...] system and there may be errors in aircraft de icer installer. Despite proof reading the note, there may be mistakes and I apologize for those. By: Sancho Sampson, PAC, 05/26/2023 4:06 PM CABLE MECHANIC E MECHANIC documented in this encounter Plan of Treatment Not on file documented as of this encounter Visit Diagnoses Not on filedocumented in this encounter Care Teams Card Sorter Relationship Specialty Start Date End Date Lane Ontiveros MD [address] [facility] [address] [place] [id number] PCP - General Internal Medicine 10/08/18 documented as of this encounter
--- OUTSIDE RECORDS SUMMARY | 2024-09-29 15:21 | XMS_ITS | Encounter Summary ---
Author Organization [facility] Address [address] [place] [address] Phone Care Team Providers Care Participant Administrator Name Role Phone Lane Ontiveros MD Primary Care Provider Encounter Details Date Type Department Care Team (Late st Contact Info) Description 05/13/2023 Nursing Facility [facility] [address] [place] [phone] Sancho Sampson, PAC [address] [place] [phone] Social History Tobacco Use Types Packs/Day Years Used Date Smoking Tobacco: Never Assessed Comments Unknown Sex and Gender Information Value Date Recorded Sex Assigned at Not on file Legal Sex Female 5:27 PM CDT Gender Identity Not on file Sexual Orientation Not on file documented as of this encounter Progress Notes * Sancho Sampson, TOOTIE - 05/13/2023 1:15 PM CST [facility] PROGRESS NOTE Maria Ines Karyn HarmonJacobs is a 88 y.o. female at [facility] for rehabilitation. Prior to coming to rehabilitation facility patient was hospitalized at [facility] from04/11/2023 through 04/15/2023 for lumbar compression fracture which was treated conservatively. Subjective: Interval History: I am seeing patient for a skilled visit. She is lying comfortably in bed. Says that she is feeling â€œbetterâ€ . No acute symptoms or concerns this [...] None Assessment/Plan: Generalized weakness and deconditioning Receiving penitentiary care and physical therapy rehabilitation 05/13/2023 improving [...] system and there may be errors in special education inclusion teacher. Despite proof reading the note, there may be mistakes and I apologize for those. By: TOOTIE Vaughn, 05/13/2023 1:15 PM SLOT OPERATIONS MANAGER OPERATIONS MANAGER documented in this encounter Plan of Treatment Not on file documented as of this encounter Visit Diagnoses Not on filedocumented in this encounter Care Teams Participant Administrator Relationship Specialty Start Date End Date Lane Ontiveros MD [address] [place] [address] DR [address] [place] [id number] PCP - General Internal Medicine 10/08/18 documented as of this encounter
--- OUTSIDE RECORDS SUMMARY | 2024-09-29 15:21 | XMS_ITS | Referral Summary ---
Author Organization [facility] Address [address] [place] [address] Care Team Providers Care Floor Covering Installer Name Role Phone Unavailable Primary Care Provider Unavailabl e Encounters Date Type Department Care Team Description 09/08/2024 Telephone [facility] Primary Care at [place] [address] [facility] [address] [place] [address] Lane Ontiveros MD from Last 3 Months Allergies Active Allergy Reactions Criticality Noted Date Comments Adhesive Tape-Silicones Rash Medium 07/09/2018 Ceftriaxone Rash Medium 07/09/23 - Approved to give cefepime with ceftriaxone allergy per Ave Colunga DO/Maggie GarciaD Tolerating cephalexin 07/18/23 Citalopram Rash Medium 07/09/2018 [...] the rectum 3 Active vit A,C and F-anbuzy-asavaig s (Ocuvite with Lutein) 300 mcg-200 mg-27 mg-2 mg tablet Take 1 tablet by mouth daily 3 Active mirtazapine (REMERON) 15 mg tablet Take 1 tablet (15 mg total) by mouth nightly 90 tablet 3 4 Active buPROPion XL (WELLBUTRIN XL) 150 mg [...] CDT): #HFrEF - Follows with Dr. Wolfe ([facility]) - Most recent TTE: 07/11/23, LVEF [...] 2-4 weeks fo rdischarge Discharge infom from [facility] cardiology provided as below Outpatient Follow-Up Plan: Follow-up with [facility] Cardiology:General Cardiology in 2-4 weeks. Please call to make an appointment when the patient is ready for discharge. If the appointment has not been scheduled by the time of discharge, please provide the following information to the patient on the discharge instructions: If you have not received information within a week of discharge regarding a follow-up appointment with [facility] Cardiology, please contact our office at . Thank you for involving us in the care of this patient. If you have any additional questions or concerns during this admission, please contact the respective cardiology consult team listed on [facility] OR, from Friday-Friday, 7:30 am - 4:30 pm, you may reach the Cardiology Consult Line at . 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 Peak around 2 - Monitor urine output, gentle IVF hydration - Follow BMP daily Closed fracture of proximal end of right tibia, unspecified fracture morphology, initial encounter 07/08/2023 Fracture of right tibia and fibula 07/08/2023 Assessment & Plan (07/08/2023 3:26 PM SODA FOUNTAIN MANAGER): - Orthopedics consult - Splinted in ED - s/p OR 07/08 for IMN right tibia - Ancef x 24h post op - WBAT RLE - Pain control - PT/OT Syncope 07/08/2023 Assessment & Plan (07/11/2023 7:43 AM SODA FOUNTAIN MANAGER): - Frequent falls recently reported by patient's daughter - Telemetry monitoring - EKG with left BBB (known history) - See shock below Delirium 07/08/2023 Assessment & Plan (07/13/2023 5:19 PM SODA FOUNTAIN MANAGER): - Delirium precautions - Ramelteon HS Anxiety 07/08/2023 Assessment & Plan (11/29/2023 1:58 PM CDT): #Panic attacks - Intermittent 1L 20- 25min of O2 at home about 1x/week when feels anxious - continue home bupropion and duloxetine Assessment & Plan (07/15/2023 6:25 AM SODA FOUNTAIN MANAGER): - Continue home duloxetine, bupropion, mirtazapine - Holding home Xanax - Atarax daily PRN Depression 07/08/2023 Assessment & Plan (07/08/2023 11:56 AM SODA FOUNTAIN MANAGER): SEE ANXIETY Overactive bladder 07/08/2023 Assessment & Plan (07/13/2023 5:20 PM SODA FOUNTAIN MANAGER): - Continue home Myrbetriq (temporarily held) Acute pain due to trauma 07/08/2023 Assessment & Plan (12/02/2023 4:40 PM CDT): - Tylenol 1000mg Q6H - Oxycodone 5mg Q4H PRN - Robaxin 500mg TID PRN Assessment & Plan (07/14/2023 5:41 AM SODA FOUNTAIN MANAGER): - tylenol 1000 mg q6h PRN [...] 12/04 Assessment & Plan (07/15/2023 6:27 AM SODA FOUNTAIN MANAGER): - 07/08: Pending OR with orthopedics [...] 023 Assessment & Plan (07/15/2023 6:26 AM SODA FOUNTAIN MANAGER): - NSGY consult - Non operative management -TLSO when OOB - Still need upright XR in TLSO when able, call NSGY to review - Q4H neuro checks - Outpatient follow up in 6 weeks with NSGY Nerve compression 04/30/2022 History of 2019 novel coronavirus disease (COVID -19) 02/26/2022 Right wrist drop 01/02/2022 Overview (01/02/2022): Added automatically from request for surgery [id number] Injury of right posterior interosseous nerve Overview (01/02/2022): Added automatically from request for surgery [id number] Radial nerve palsy, 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 Does not manage her own medications - PT/OT Assessment & Plan (08/02/2021 1:56 PM CDT): Mechanical fall CT head and neck negative advil prn for headache w/ food F/u prn Arthritis of knee, left 02/27/2021 Elevated d-dimer 11/13/2020 Left bundle branch block (LB BB) determined by electrocardiography 11/13/2020 Medicare annual wellness visit, subsequent 03/22 Assessment & Plan (03/22/2019 11:00 AM SODA FOUNTAIN MANAGER): Self assessment detail includes: No current home safety or functional concerns at this time per assessment scales. Hearing and vision intact. Admits to use smoke and carbon monoxide alarms. The fall risk is minimal. The cognitive screening was negative for dementia, depression anxiety both appear to be stable on current medication. Pt has a living will and durable power of assistant city attorney in place. In regard to social [...] 03/22/2019 Assessment & Plan (03/22/2019 10:58 AM SODA FOUNTAIN MANAGER): Decline urologist consultation this point time, [...] 08/27/2017 Assessment & Plan (03/22/2019 10:52 AM SODA FOUNTAIN MANAGER): Cnt. To see pain management, , for pain management. Cnt. With Cymbalta as prior advised. Multiple-type hyperlipidemia 02/14/2016 Overview (08/23/2016): MIXED HYPERLIPIDEMIA Assessment & Plan (11/29/2023 2:01 PM CDT): - continue home atorvastatin Assessment & Plan (03/22/2019 10:56 AM SODA FOUNTAIN MANAGER): Stable with recent labs indicated total cholesterol 172, triglycerides 125, LDL 94, HDL 53. Cnt. Heart healthy diet, mild daily exercise. ASA discussed, but deferred given risks vs benefit. Hypothyroid 02/14/2016 Overview (08/23/2016): HYPOTHYROIDISM NOS Assessment & Plan (11/29/2023 1:59 PM CDT): - continue home synthroid Assessment & Plan (07/08/2023 12:06 PM SODA FOUNTAIN MANAGER): - Continue Synthroid Generalized osteoarthritis 10/02/2013 Overview (08/23/2016): GENERAL OSTEOARTHROSIS Gastroesophageal reflux disease 10/02/2013 Overview (08/23/2016): ESOPHAGEAL REFLUX Assessment & Plan (11/29/2023 2:01 PM CDT): - continue home pepcid Age-related osteoporosis with current pathologic al fracture 10/02/2013 Overview (08/23/2016): OSTEOPOROSIS NOS Normocytic anemia Assessment & Plan (03/22/2019 10:52 AM SODA FOUNTAIN MANAGER): Anemia secondary to femur fracture in [...] 12/06/19 Assessment & Plan (06/23/2017 2:21 PM SODA FOUNTAIN MANAGER): Recommended patient to continue to increase heart healthy diet with adequate fruits, vegetables, and plenty of water along with mild-moderate daily exercise as tolerated. Pleurisy 06/23/2017 09/08/2017 Assessment & Plan (06/23/2017 2:23 PM SODA FOUNTAIN MANAGER): Recommended Jennie De La Cruz for cough suppression to take 1-2 tabs t.i.d. p.r.n. additionally I advised her she can take plain naproxen only on a p.r.n. basis or Advil she cannot take both. Follow-up in office in 4 days is recommended Acute bronchitis due to othe r specified organisms 06/23/2017 09/08/2017 Assessment & Plan (06/23/2017 2:22 PM SODA FOUNTAIN MANAGER): Recommended Levaquin 500 mg once daily [...] course of 10 days, increased fluids, Mucinex yris-eub-rwaolyf for daytime cough and Tessalon Perles for [...] NEC Assessment & Plan (06/23/2017 2:23 PM SODA FOUNTAIN MANAGER): Possible COPD exacerbation due to acute [...] drink = 0.6 oz pur e alcohol) [facility] Utilities Answer Date Recorded In the past 12 months has [employer], [employer] or [employer] threatened to shut off services in your [...] often do you attend chur ch or orthodox services? Never 11/30/2023 Do you belong to any clubs o r organizations such as orthodox groups, unions, fraternal or athletic groups, or [...] place to sleep or slept in a [place] facility (including now)? No 07/11/2023 Housing Stability Vital Sign Answer Timothy e Recorded In the last 12 months, was t here a time when you were not able to pay the mortgage or rent on time? No 11/30/2023 In the past 12 months, how m any times have you moved where you were living? 0 11/30/2023 At any time in the past 12 m [facility], were you homeless or living in a [place] facility (including now)? No 11/30/2023 Personal Safety Answer Date Recorded Have you ever been in or are you currently in a harmful physical or emotional relationship or is someone making you feel afraid or unsafe? Denies 12/02/2023 Comments No Sex and Gender Information Value Date Recorded Sex Assigned at Not on file Legal Sex Female 11:52 PM SODA FOUNTAIN MANAGER Gender Identity Not on file Sexual [...] on file Medical Devices Implanted Type Area Special Delivery Worker Device Identifier Shelf Expiration Date Model / Serial / Lot Sossee Chavez Angio-Seal Vip 6fr Closere Device [id number] - [id number] - [id number] Implanted:Qty: 1 on 07/21/2023 by Tc Enriquez MD at [facility] Collagen Left: Common Femoral Artery [employer] Chavez 04/03/2024 [id number] / [id number] / [id number] [employer]Rich[employer]/Or tho Trigen Decker-Nail 8.5mm 33cm Tibia Nail Intramedullary Titanium [id number] - [id number] Implanted:Qty: 1 on 07/08/2023 by Emiliano Wagner MD at [facility] Nail Right: Tibia [employer]/ Ortho [id number] 02/29/2032 [id number] / / [id number] [employer]/Or tho 4.5mm 6.5mm Low Profile Internal Capture Femur Screw Bone Trigen [id number] - [id number] Implanted:Qty: 1 on 07/08/2023 by Emiliano Wagner MD at [facility] Screw Right: Tibia [employer]/ Ortho [id number] 08/21/2031 [id number] / / [id number] [employer]/Or tho 4.5mm 60mm Low Profile Internal Capture Femur Screw Bone Trigen [id number] - [id number] Implanted:Qty: 1 on 07/08/2023 by Emiliano Wagner MD at [facility] Screw Right: Tibia [employer]/ Ortho [id number] 06/28/2030 [id number] / / [id number] [employer]/Or tho 4.5mm 40mm Low Profile Internal Capture Femur Screw Bone Trigen [id number] - S0 - [id number] Implanted:Qty: 1 on 07/08/2023 by Emiliano Wagner MD at [facility] Screw Right: Tibia [employer]/ Ortho [id number] 01/15/2032 [id number] / 0 / [id number] [employer]/Or tho 4.5mm 32.5mm Low Profile Internal Capture Femur Screw Bone Trigen [id number] - [id number] Implanted:Qty: 1 on 07/08/2023 by Emiliano Wagner MD at [facility] Screw Right: Tibia [employer]/ Ortho [id number] 05/22/2031 [id number] / / [id number] [employer]/Or tho 4.5mm 25mm Low Profile Internal Capture Femur Screw Bone Trigen [id number] - [id number] Implanted:Qty: 1 on 07/08/2023 by Emiliano Wagner MD at [facility] Screw Right: Tibia [employer]/ Ortho [id number] 08/19/2031 [id number] / / [id number] [employer]/Or tho 5mm 40mm Low Profile Internal Hex Femur Screw Bone Trigen [id number] - S0 - [id number] Implanted:Qty: 1 on 07/08/2023 by Emiliano Wagner MD at [facility] Screw Right: Tibia [employer]/ Ortho [id number] / 0 / 4.5mm Lcp Condylar Plates Implanted:Qty: 1 on 07/10/[address] Iverson MD at [facility] Right: Femur DEPUY Pipette C1713 222.656 / / Synthes .065 5mm 4.4mm 65mm Cannulated Self Tap Self Drill Lock 4mm Full - [id number] Implanted:Qty: 1 on 07/10/[address] Iverson MD at [facility] Right: Femur Synthes I .06 5 / / Synthes 02.075 5mm 4.4mm 75mm Cannulated Self Tap Self Drill Lock 4mm Full - [id number] Implanted:Qty: 2 on 07/10/[address] Iverson MD at [facility] Right: Femur Synthes I .07 5 / / Synthes 214.840 4.5mm 8mm 40mm Self Tap Large Hexagonal Socket Cortex Screw Bone - [id number] Implanted:Qty: 1 on 07/10/[address] Iverson MD at [facility] Right: Femur Synthes I 214.840 / / 5.0mm Locking Screw, Self-Tapping With T25 Stardrive Recess Implanted:Qty: 1 on 07/10/[address] Iverson MD at [facility] Right: Femur DEPUY Pipette C1713 212.208 / / Synthes 212.218 5mm 4.4mm 48mm Self Tap Lock Stardrive Conical Head Cortical - [id number] Implanted:Qty: 1 on 07/10/[address] Iverson MD at [facility] Right: Femur Dish.fm C1713 212.218 / / 7.3mm Cannulated Locking Screw Implanted:Qty: 1 on 07/10/[address] Iverson MD at [facility] Right: Femur DEPUY Pipette C1713 02.207.08 0 / / 5.0mm Locking Screws, Self-Tapping With T25 Stardrive Recess Implanted:Qty: 1 on 07/10/[address] Iverson MD at [facility] Right: Femur DEPUY Pipette C1713 212.216 / / 5.0mm Locking Screws, Self-Tapping With T25 Stardrive Recess Implanted:Qty: 2 on 07/10/[address] Iverson MD at [facility] Right: Femur DEPUY Pipette C1713 212.214 / / [employer] Axoguard 3.5mm 40mm Reinforce Wrap Protector Nerve Porcine He1939 - [id number] Implanted:Qty: 1 on 04/30/2022 by Olivia Baires MD at [facility] [employer] 07/08/2023 [id number] / / [id number] [employer]/Or tho Evos Mini 2.7mm 4.5mm 38mm Self Tap Cortex T8 Screw Bone Sterile [id number] - [id number] Implanted:Qty: 1 on 12/02/2023 by Mariann Dawson MD at [facility] Right: Ankle [employer]/ Ortho [id number] / / [employer]/Or tho Evos Mini 2.7mm 4.5mm 11mm Self Tap Cortex T8 Screw Bone [id number] - [id number] Implanted:Qty: 1 on 12/02/2023 by Mariann Dawson MD at [facility] Right: Ankle [employer]/ Ortho [id number] / / [employer]/Or tho 2.7mm 4.3mm 16mm Self Tap Lock T8 2mm Screw Bone Evos [id number] - [id number] Implanted:Qty: 1 on 12/02/2023 by Mariann Dawson MD at [facility] Right: Ankle [employer]/ Ortho [id number] / / [employer]/Or tho Evos Mini 2.7mm 4.5mm 15mm Self Tap Cortex T8 Screw Bone [id number] - [id number] Implanted:Qty: 1 on 12/02/2023 by Mariann Dawson MD at [facility] Right: Ankle [employer]/ Ortho [id number] / / [employer]/Or tho Evos Mini 2.7mm 4.5mm 10mm Self Tap Cortex T8 Screw Bone [id number] - [id number] Implanted:Qty: 1 on 12/02/2023 by Mariann Dawson MD at [facility] Right: Ankle [employer]/ Ortho [id number] / / [employer]/Or tho Evos Mini 2.7mm 4.5mm 12mm Self Tap Cortex T8 Screw Bone [id number] - [id number] Implanted:Qty: 1 on 12/02/2023 by Mariann Dawson MD at [facility] Right: Ankle [employer]/ Ortho [id number] / / [employer]/Or tho Evos 3.5mm 70mm Self Tap Cortex Screw Bone Sterile [id number] - [id number] Implanted:Qty: 1 on 12/02/2023 by Mariann Dawson MD at [facility] Right: Ankle [employer]/ Ortho [id number] / / [employer]/Or tho Evos 3.5mm 12mm Self Tap Cortex Screw Bone Sterile [id number] - [id number] Implanted:Qty: 3 on 12/02/2023 by Mariann Dawson MD at [facility] Right: Ankle [employer]/ Ortho [id number] / / [employer]/Or tho Evos 3.5mm 36mm Self Tap Cortex Screw Bone Sterile 97543727 - [id number] Implanted:Qty: 1 on 12/02/2023 by Mariann Dawson MD at [facility] Right: Ankle [employer]/ Ortho [id number] / / [employer]/Or tho Evos 3.5mm 42mm Self Tap Cortex Screw Bone Sterile [id number] - [id number] Implanted:Qty: 1 on 12/02/2023 by Mariann Dawson MD at [facility] Right: Ankle [employer]/ Ortho [id number] / / [employer]/Or tho Evos 3.5mm 38mm Self Tap Cortex Screw Bone Sterile [id number] - [id number] Implanted:Qty: 1 on 12/02/2023 by Mariann Dawson MD at [facility] Right: Ankle [employer]/ Ortho [id number] / / M[employer]/Or tho Evos [id number] 16.3x1.7mm 7 Hole Low Profile Variable Angle Lock [id number] - [id number] Implanted:Qty: 1 on 12/02/2023 by Mariann Dawson MD at [facility] Right: Ankle [id number]|2024-09-29 15:21:00|2024-09-29 15:20:00|XMS_ITS|BKG DAEMON|External Medical Summaries|[id number]|" Encounter Summary Created on: September 29, 2024 Maria Ines Jacobs : 1935 Sex: Female Author Organization [facility] Address [address] [place] [address] Phone Care Team Providers Care Floor Covering Installer Name Role Phone Lane Ontiveros MD Primary Care Provider Stanley Llamas HORSE TRADER Unavailable Unavailabl Micheline Merino PUBLIC SAFETY TEACHER Unavailable Unavailabl Maryam Richards Unavailable [phone] Kelly Huber RN Unavailable [phone] Lissy Rocha LCSW Unavailable [phone] Lissy Rocha LCSW Unavailable [phone] Lane Ontiveros MD Primary Care Provider Deborah Cedillo RN Unavailable Encounter Details Date Type Department Care Team (Late st Contact Info) Description 08/25/2017 Orders Only [facility] ProviderErica MD [address] [place] [address] Social History Tobacco Use Types Packs/Day Years Used Date Smoking Tobacco: Former Smokeless Tobacco: Never Comments:Smoking History Pac ks/day: 0.5 Packs Alcohol Use Standard Drinks/Week Comments No 0 (1 standard drink = 0.6 oz pur e alcohol) Comments Unknown Sex and Gender Information Value Date Recorded Sex Assigned at Not on file Legal Sex Female 11:52 PM SODA FOUNTAIN MANAGER Gender Identity Not on file Sexual [...] documented as of this encounter Care Teams Floor Covering Installer Relationship Specialty Start Date End Date Lane Ontiveros MD PCP - General 08/16/16 04/30/22 Lane Ontiveros MD [address] [place] [address] DR T[address] [place] [address] PCP - General Internal Medicine 05/01/22 09/07/[address]W [address] In Teller 07/10/18 07/12/18 Micheline Salomon LPN Care Manager 07/14/18 09/13/18 Maryam Pena [address] [place] [address] [address] [place] [address] ACO Care Marketing Recruiter 04/26/19 04/26/19 Kelly Huber, RN [address] [address] [place] [address] Intake Worker 11/14/20 01/15/21 Lissy Rocha, HORSE TRADER [address] [place] [address] Drive In Teller 07/30/21 09/09/21 Lissy Rocha, HORSE TRADER [address] [place] [address] Drive In Teller 10/26/21 11/19/21 Deborah Cedillo RN [address] [facility] [facility] [address] [place] [address] Intake Worker 07/28/24 08/30/24 documented as of this encounter "
--- OUTSIDE RECORDS SUMMARY | 2024-09-29 15:21 | XMS_ITS | Encounter Summary ---
Author Organization [facility] Address [address] [facility] [place] [address] Phone Care Team Providers Care Rehabilitation Therapist Name Role Phone Shweta Jimenez MD Primary Care Provider Encounter Details Date Type Department Care Team (Late st Contact Info) Description 05/29/2023 Nursing Facility [facility] [address] [place] [phone] Sancho Sampson PAC [address] [place] [address] [phone] Social History Tobacco Use Types Packs/Day Years Used Date Smoking Tobacco: Never Assessed Comments Unknown Sex and Gender Information Value Date Recorded Sex Assigned at Not on file Legal Sex Female 5:27 PM CDT Gender Identity Not on file Sexual Orientation Not on file documented as of this encounter Progress Notes * Sancho Sampson PAC - 05/29/2023 2:17 PM CST [facility] DISCHARGE SUMMARY Name: Maria Ines Jacobs Age: [...] COURSE: Maria Ines Jacobs was admitted to longterm facility for acute care rehabilitation. Prior to coming to rehabilitation facility patient was hospitalized at [facility] from04/11/2023 through 04/15/2023 for lumbar compression fracture which was treated conservatively. While at the rehabilitation facility, the patient received longterm care and physical therapy rehabilitation. The patient [...] her chair. Says she feels â€œgoodâ€ . She is a little anxious about [...] have spent time coordinating care for this longterm facility discharge: Greater than 30 minutes spent in coordinating care This note was dictated using [employer] fluency dictation system and there may be errors in lubricating machine tender. Despite proof reading the note, there may be mistakes and I apologize for those. Signed: TOOTIE Vaughn, 05/29/2023, 2:18 PM MOTION PICTURE ACTOR ON PICTURE ACTOR documented in this encounter Plan of Treatment Not on file documented as of this encounter Visit Diagnoses Not on filedocumented in this encounter Care Teams Rehabilitation Therapist Relationship Specialty Start Date End Date Shweta Jimenez MD [address] [place] [address] DR T[address]LEY [address] [place] [id number] PCP - General Internal Medicine 10/08/18 documented as of this encounter
--- OUTSIDE RECORDS SUMMARY | 2024-09-29 15:21 | XMS_ITS | Encounter Summary ---
Author Organization [facility] Address [address] [facility] [place] [address] Phone Care Team Providers Care Crystallizer Operator Name Role Phone Shweta Jimenez MD Primary Care Provider Encounter Details Date Type Department Care Team (Late st Contact Info) Description 04/17/2023 [facility] [address] [place] [phone] Audelia Kovacs MD [address] [place] [address] Social History Tobacco Use Types Packs/Day Years Used Date Smoking Tobacco: Never Assessed Comments Unknown Sex and Gender Information Value Date Recorded Sex Assigned at Not on file Legal Sex Female 5:27 PM CDT Gender Identity Not on file Sexual Orientation Not on file documented as of this encounter H&P Notes * Mazin Escamilla - 04/17/2023 11:23 AM CST [facility] Custodial History and Physical Chief Complaint: Fall, low back pain, lumbar compression fx HPI: Maria Ines Jacobs is a 88 y.o. female who has transferred to [facility] for post-acutecare and rehabilitation. Prior to coming to rehabilitation facility patient was hospitalized at [facility] from 04/11/2023 through 04/15/2023 for fall [...] medical records Review of Prior External Notes: [facility] records Allergies: is allergic to sulfasalazine, [...] she lives alone. Advance Care Planning: Aggregate [id number] time, greater than 16 minutes was spent discussing end-of-life care planning with patient/family and/or Power of Biofuels Processing Technician. Discussed CPR, Intubation, treatment goals, and Quality [...] Audelia Kovacs MD at 07/01/2023 10:42 AM CLAIM APPROVER M APPROVER M APPROVER documented in this encounter Plan of Treatment Not on file documented as of this encounter Visit Diagnoses Not on filedocumented in this encounter Care Teams Crystallizer Operator Relationship Specialty Start Date End Date Shweta Jimenez MD 2 [facility] [address] [address] PCP - General Internal Medicine 10/08/18 documented as of this encounter
--- OUTSIDE RECORDS SUMMARY | 2024-09-29 15:21 | XMS_ITS | Encounter Summary ---
Author Organization [facility] Address [address] [place] [address] Phone Care Team Providers Care Gauge And Weigh Machine Operator Name Role Phone Lane Ontiveros MD Primary Care Provider Lissy RochaW Unavailable [phone] Lane Ontiveros MD Primary Care Provider Deborah Cedillo RN Unavailable Encounter Details Date Type Department Care Team (Late st Contact Info) Description 11/12/2021 Telephone [facility] [place] [facility] [address] [place] [address] [address] [place] [address] Chanda Renteria CMA Social History [...] week 07/30/2021 How often do you attend [facility] or nondenominational services? Never 07/30/2021 Do you belong to any clubs o r organizations such as zoroastrian groups, unions, fraternal or athletic groups, or [...] place to sleep or slept in a long-term (including now)? No 07/30/2021 Comments No Sex and Gender Information Value Date Recorded Sex Assigned at Not on file Legal Sex Female 11:52 PM SUPERVISOR ELEMENTARY EDUCATION Gender Identity Not on file Sexual Orientation [...] documented as of this encounter Care Teams Gauge And Weigh Machine Operator Relationship Specialty Start Date End Date Lane Ontiveros MD PCP - General 08/16/16 04/30/22 Lane Ontiveros MD [address] [place] [address] [address] PCP - General Internal Medicine 05/01/22 09/07/24 Lissy Rocha, [place] [address] [place] [address] [place], [place] [id number] Product Promoter Sales Person 10/26/21 11/19/21 Deborah Cedillo RN [address] [place] [address] DR T[address] [place] [phone] Healthcare Financial Analyst 07/28/24 08/30/24 documented as of this encounter
--- OUTSIDE RECORDS SUMMARY | 2024-09-29 15:21 | XMS_ITS | Encounter Summary ---
Author Organization [facility] Address [address] [facility] [place] [address] Phone Care Team Providers Care Maintenance Groundman Name Role Phone Lane Ontiveros MD Primary Care Provider Encounter Details Date Type Department Care Team (Late st Contact Info) Description 05/19/2023 Nursing Facility [facility] [address] [place] [phone] Sancho Sampson, PAC [address] [place] [phone] Social History Tobacco Use Types Packs/Day Years Used Date Smoking Tobacco: Never Assessed Comments Unknown Sex and Gender Information Value Date Recorded Sex Assigned at Not on file Legal Sex Female 5:27 PM CDT Gender Identity Not on file Sexual Orientation Not on file documented as of this encounter Progress Notes * Sancho Sampson, TOOTIE - 05/19/2023 11:50 AM CST [facility] PROGRESS NOTE Maria Ines Donovans is a 88 y.o. female at [facility] for rehabilitation. Prior to coming to rehabilitation facility patient was hospitalized at [facility] from04/11/2023 through 04/15/2023 for lumbar compression fracture which was treated conservatively. Subjective: Interval History: I am seeing patient for a skilled visit. She is sitting comfortably in her chair. Says she feels â€œokayâ€ . No acute symptoms or concerns this [...] None Assessment/Plan: Generalized weakness and deconditioning Receiving prison care and physical therapy rehabilitation 05/19/2023 improving [...] system and there may be errors in marriage and family therapist. Despite proof reading the note, there may be mistakes and I apologize for those. By: Sancho Sampson, PAC, 05/19/2023 11:51 AM MANAGER ATHLETICS GER ATHLETICS documented in this encounter Plan of Treatment Not on file documented as of this encounter Visit Diagnoses Not on filedocumented in this encounter Care Teams Maintenance Groundman Relationship Specialty Start Date End Date Lane Ontiveros MD 2 [facility] [address] TINSLEY [address] [place] [address] PCP - General Internal Medicine 10/08/18 documented as of this encounter
--- OUTSIDE RECORDS SUMMARY | 2024-09-29 15:21 | XMS_ITS | Encounter Summary ---
Author Organization [facility] Address [address] [facility] [place] [address] Phone Care Team Providers Care Sales Project Administrator Name Role Phone Lane Ontiveros MD Primary Care Provider Encounter Details Date Type Department Care Team (Late st Contact Info) Description 05/22/2023 Nursing Facility [facility] [address] [place] [phone] Sancho Sampson, PAC [address] [place] [phone] Social History Tobacco Use Types Packs/Day Years Used Date Smoking Tobacco: Never Assessed Comments Unknown Sex and Gender Information Value Date Recorded Sex Assigned at Not on file Legal Sex Female 5:27 PM CDT Gender Identity Not on file Sexual Orientation Not on file documented as of this encounter Progress Notes * Sancho Sampson, TOOTIE - 05/22/2023 3:46 PM CST [facility] PROGRESS NOTE Maria Ines Donovans is a 88 y.o. female at [facility] for rehabilitation. Prior to coming to rehabilitation facility patient was hospitalized at [facility] from04/11/2023 through 04/15/2023 for lumbar compression fracture [...] None Assessment/Plan: Generalized weakness and deconditioning Receiving half-way care and physical therapy rehabilitation 05/22/2023 improving [...] this week. This note was dictated using M*F[employer] fluency dictation system and there may be errors in communication lecturer. Despite proof reading the note, there may be mistakes and I apologize for those. By: Sancho Sampson, TOOTIE, 05/22/2023 3:46 PM WARP TYING MACHINE TENDER TYING MACHINE TENDER documented in this encounter Plan of Treatment Not on file documented as of this encounter Visit Diagnoses Not on filedocumented in this encounter Care Teams Sales Project Administrator Relationship Specialty Start Date End Date Lane Ontiveros MD 2 [facility] [address] [address] PCP - General Internal Medicine 10/08/18 documented as of this encounter
--- OUTSIDE RECORDS SUMMARY | 2024-09-29 15:21 | XMS_ITS | Encounter Summary ---
Author Organization [facility] Address [address] [address] Care Team Providers Care Mobile Marketing Manager Name Role Phone Lane Ontiveros MD Primary Care Provider Lane Ontiveros MD Primary Care Provider Stanley Llamas SUPERVISOR LIVESTOCK YARD Unavailable Unavailabl e Micheline Salomon STAFF ANALYST Unavailable Unavailabl e Maryam Pena Unavailable [phone] Kelly Huber RN Unavailable Lissy Rocha SUPERVISOR LIVESTOCK YARD Unavailable Lissy Rocha SUPERVISOR LIVESTOCK YARD Unavailable Lane Ontiveros MD Primary Care Provider Deborah Cedillo RN Unavailable Reason for Referral * Diagnostic Imaging (Routine) - Closed Specialty Diagnoses / Procedures Referred By Christopher t Referred To Contact Procedures Dexa Axial Skeleton Bone Density [address] Ontiveros MD Phone: tel: fax: [facility] Referral ID Status Reason Start Date Expiration Date Visits Re quested Visits Authorized [id number] Closed 03/03/2019 09/11/2020 1 1 RT MANAGER Encounter Details Date Type Department Care Team (Late st Contact Info) Description 07/19/2010 Orders Only [facility] [place] [place] Health Information Management [address] [place] [address] [address] [address] Ontiveros MD [address] [place] [address] DR T[address]LEY [address] [place] [phone] Social History Tobacco Use Types Packs/Day Years Used Date Smoking Tobacco: Heavy Smoker Comments:Smoking History Pac ks/day: 0.5 Packs Comments Unknown Sex and Gender Information Value Date Recorded Sex Assigned at Not on file Legal Sex Female 11:52 PM RESORT MANAGER Gender Identity Not on file Sexual [...] documented as of this encounter Care Teams Mobile Marketing Manager Relationship Specialty Start Date End Date Lane Ontiveros MD PCP - General 08/16/16 04/30/22 Lane Ontiveros MD PCP - General 08/02/08 08/15/16 Lane Ontiveros MD [address] [facility] [address] TINS[address] [facility] [place] [address] PCP - General Internal Medicine 05/01/22 09/07/24 Stanley Llamas LCSW Counseling Aide 07/10/18 07/12/18 Micheline Salomon LPN Care Manager 07/14/18 09/13/18 Maryam Pena [address] [place] [address] [address] [place], [place] [id number] ACO Care Shrimp Header 04/26/19 04/26/19 Kelly Huber RN [address] [place] [address] [address] [place] [address] Rip/Mould Operator 11/14/20 01/15/21 Lissy Rocha SUPERVISOR LIVESTOCK YARD [address] [place] [address] [place] [address] Counseling Aide 07/30/21 09/09/21 Lissy Rocha LCSW [address] [place] [address] [place] [address] Counseling Aide 10/26/21 11/19/21 Deborah Cedillo, SHERLY [address] [place] [address] [address] [place] [address] Rip/Mould Operator 07/28/24 08/30/24 documented as of this encounter
--- OUTSIDE RECORDS SUMMARY | 2024-09-29 15:21 | XMS_ITS | Encounter Summary ---
Author Organization [facility] Address [address] [facility] [place] [address] Phone Care Team Providers Care Lead Instructor/Flight Attendant Name Role Phone Lane Ontiveros MD Primary Care Provider Encounter Details Date Type Department Care Team (Late st Contact Info) Description 04/22/2023 Nursing Facility [facility] [address] [place] [phone] Sancho Sampson, PAC [address] [place] [address] [phone] Social History Tobacco Use Types Packs/Day Years Used Date Smoking Tobacco: Never Assessed Comments Unknown Sex and Gender Information Value Date Recorded Sex Assigned at Not on file Legal Sex Female 5:27 PM CDT Gender Identity Not on file Sexual Orientation Not on file documented as of this encounter Progress Notes * Sancho Sampson, TOOTIE - 04/22/2023 12:08 PM CST [facility] PROGRESS NOTE Maria Ines Karyn HarmonJacobs is a 88 y.o. female at [facility] for rehabilitation. Prior to coming to rehabilitation facility patient was hospitalized at [facility] from04/11/2023 through 04/15/2023 for lumbar compression fracture which was treated conservatively. Subjective: Interval History: I am seeing patient for a skilled visit. She is sitting comfortably in her chair. Says that her back is â€œsoreâ€ . Says she prefers the Tylenol because she tolerates it well and it seems to control her pain. The Percocet makes her sleepy so she avoids that. Otherwise she is feeling â€œokay ankle. No constipation or any other concerns [...] Receiving detention care and physical therapy rehabilitation Lumbar compression [...] system and there may be errors in freezer operator. Despite proof reading the note, there may be mistakes and I apologize for those. By: Sancho Sampson, TOOTIE, 04/22/2023 12:15 PM WET CHEMISTRY ANALYST CHEMISTRY ANALYST documented in this encounter Plan of Treatment Not on file documented as of this encounter Visit Diagnoses Not on filedocumented in this encounter Care Teams Lead Instructor/Flight Attendant Relationship Specialty Start Date End Date Lane Ontiveros MD [address] [place] [address] DR T[address] [place] [address] PCP - General Internal Medicine 10/08/18 documented as of this encounter
--- OUTSIDE RECORDS SUMMARY | 2024-09-29 15:21 | XMS_ITS | Clinical Summary ---
Author Organization [facility] Address [address] [place] [address] Phone Care Team Providers Care Special Events Manager Name Role Phone Lane Ontiveros MD Primary Care Provider Allergies Active Allergy Reactions Criticality Noted Date Comments Iodine Rash Low 10/10/2018 Lactose Intolerance (Gi) Diarrhea Low 10/10/2018 Sulfasalazine Rash High 10/10/2018 Medications ergocalciferol (VITAMIN D) 52254 UNIT Capsule Take 50,000 Units by mouth [...] Documents on File Type Date Recorded Patient Electric Meter Reader Expl anation Power of Recyclable Products Sorter for Health Care 10/15/2018 11:48 AM POA 07/14/09 * Full Code (Latest Code Status on File) Date Activated Date Inactivated Comments 10/21/2018 5:11 PM Care Teams Special Events Manager Relationship Specialty Start Date End Date Lane Ontiveros MD [address] [place] [address] DR T[address] [place] [address] PCP - General Internal Medicine 10/08/18
--- OUTSIDE RECORDS SUMMARY | 2024-09-29 15:21 | XMS_ITS | Encounter Summary ---
Author Organization [facility] Address [address] [facility] [place] [address] Phone Care Team Providers Care Animal Attendant Name Role Phone Lane Ontiveros MD Primary Care Provider Encounter Details Date Type Department Care Team (Late st Contact Info) Description 05/08/2023 Nursing Facility [facility] [address] [place] [phone] Sancho Sampson, PAC [address] [place] [address] [phone] Social History Tobacco Use Types Packs/Day Years Used Date Smoking Tobacco: Never Assessed Comments Unknown Sex and Gender Information Value Date Recorded Sex Assigned at Not on file Legal Sex Female 5:27 PM CDT Gender Identity Not on file Sexual Orientation Not on file documented as of this encounter Progress Notes * Sancho Sampson, TOOTIE - 05/08/2023 2:06 PM CST [facility] PROGRESS NOTE Maria Ines Donovans is a 88 y.o. female at [facility] for rehabilitation. Prior to coming to rehabilitation facility patient was hospitalized at [facility] from04/11/2023 through 04/15/2023 for lumbar compression fracture which was treated conservatively. Subjective: Interval History: I am seeing patient for a skilled visit. She is sitting comfortably in her chair. Says that she is feeling â€œfineâ€ . Her back is â€œsoreâ€ but improving. Saw ortho yesterday who removed [...] Receiving [facility] care and physical therapy rehabilitation 05/08/2023 improving [...] this patient. This note was dictated using [employer] fluency dictation system and there may be errors in brake specialist. Despite proof reading the note, there may be mistakes and I apologize for those. By: TOOTIE Vaughn, 05/08/2023 2:06 PM LOSS PREVENTION RESEARCH ENGINEER PREVENTION RESEARCH ENGINEER documented in this encounter Plan of Treatment Not on file documented as of this encounter Visit Diagnoses Not on filedocumented in this encounter Care Teams Animal Attendant Relationship Specialty Start Date End Date Lane Ontiveros MD 2 [facility] [address] [address] PCP - General Internal Medicine 10/08/18 documented as of this encounter
--- OUTSIDE RECORDS SUMMARY | 2024-09-29 15:21 | XMS_ITS ---
Author Name Auto Generated, Auto Generated Organization [facility] Address [address] [place] [address] Phone [phone] Care Team Providers Care Purchasing Engineer Name Role Phone Lynn Estradan Unavailable [phone] Herb Vasquez Unavailable Functional Status No Results Mental Status No Results Allergies and Intolerances Name Onset Date Reaction Severity Toradol (Allergy) FriJul 21 18:36:00 EST 2023 propoxyphene (Allergy) FriJul 21 18:36:00 EST 2 024 indomethacin (Allergy) FriJul 21 18:36:00 EST 2 024 diazepam (Allergy) FriJul 21 18:36:00 EST 2023 tetracycline (Allergy) FriJul 21 18:36:00 EST 2 024 Sulfa (Sulfonamide Antibiotics) (Allergy) Fri 18:36:00 EST 2023 iodine (Allergy) FriJul 21 18:36:00 EST 2023 citalopram (Allergy) FriJul 21 18:36:00 EST 202 4 ceftriaxone (Allergy) FriJul 21 18:36:00 EST 20 24 adhesive tape (Allergy) FriJul 21 18:36:00 EST 2023 Medications Medication Directions Start Date End Date traMADoL 50 mg tablet 1 tablet TABLET Or al PRN 3 Times Daily Indication: Pain FriAug 03 12:30:00 EDT 2023Aug 21 01:00:00 EDT 2023 hydrALAZINE 25 mg tablet 1 TAB TABLET Or al 3 Times Daily Indication: BLOOD PRESSURE FriJul 22 01:00:00 EST 2023Aug 19 23:49:00 EDT 2023 isosorbide dinitrate 20 mg tablet 1 TAB TABLET Oral 3 Times Daily Indication: HEART/CHEST PAIN FriJul 22 01:00:00 EST 2023Aug 19 23:49:00 EDT 2023 buPROPion HCL XL 150 mg 24 hr tablet, extended release 1 TAB TABLET, EXTENDED RELEASE 24 HR Oral 1 Time Daily Indication: MOOD AND ENERGY FriJul 22 15:30:00 EST 2023Aug 21 01:00:00 EDT 2023 DULoxetine 60 mg capsule,delayed release 1 CAP CAPSULE,DELAYED RELEASE (ENTERIC COATED) Oral 1 Time Daily Indication: MOOD FriJul 22 15:30:00 EST 2023Aug 21 01:00:00 EDT 2023 carvediloL 6.25 mg tablet 1 TAB TABLET O ral 2 Times Daily Indication: BLOOD PRESSURE WITH MEALS FriJul 22 15:30:00 EST 2023Aug 21 01:00:00 EDT 2023 mirtazapine 15 mg tablet 1 TAB TABLET Or al Hour Of Sleep Indication: MOOD FriJul 22 15:30:00 EST 2023Aug 21 01:00:00 EDT 2023 TubersoL 5 tub. unit/0.1 mL intradermal injection solution 0.1 ml VIAL (ML) Intradermal 1 Time Weekly for 2 Weeks Indication: admit 1st injection on admission, then one week after. Read between 48 and 72 hours FriJul 22 07:00:00 EST 2023Aug 05 06:59:00 EDT 2023 TubersoL 5 tub. unit/0.1 mL intradermal injection solution Read Results VIAL (ML) Other 1 Time Weekly for 2 Weeks Indication: admit Read results between 48-72 hours after 1st and 2nd (1 week apart). If positive do chest x-ray. FriJul 24 07:00:00 EST 2023Aug 07 06:59:00 EDT 2023 Mapap (acetaminophen) 500 mg capsule 2 CAPS CAPSULE Oral PRN 3 Times Daily Indication: PAIN 2 [id number]=[id number] *DO NOT EXCEED 3GM/DAY APAP FROM ALL SOURCES* FriJul 21 01:00:00 EST 2023Aug 21 01:00:00 EDT 2023 albuterol sulfate HFA 90 mcg/actuation aerosol inhaler 2 PUFFS HFA AEROSOL WITH ADAPTER (GRAM) Inhalation PRN Every 4 Hours Indication: WHEEZING OR SHORTNESS OF BREATH FriJul 21 01:00:00 EST 2023Aug 21 01:00:00 EDT 2023 aspirin 81 mg tablet,delayed release 1 TAB TABLET, DELAYED RELEASE (ENTERIC COATED) Oral 1 Time Daily Indication: prevention FriJul 21 19:00:00 EST 2023Aug 21 01:00:00 EDT 2023 atorvastatin 40 mg tablet 1 TAB TABLET O ral 1 Time Daily Indication: CHOLESTEROL FriJul 21 19:00:00 EST 2023Aug 21 01:00:00 EDT 2023 buPROPion HCL XL 150 mg 24 hr tablet, extended release 1 TAB TABLET, EXTENDED RELEASE 24 HR Oral 1 Time Daily Indication: MOOD AND ENERGY FriJul 21 19:00:00 EST 2023Jul 22 15:44:00 EST 2023 carvediloL 6.25 mg tablet 1 TAB TABLET O ral 2 Times Daily Indication: BLOOD PRESSURE WITH MEALS FriJul 21 19:00:00 EST 2023Jul 22 15:48:00 EST 2023 DULoxetine 60 mg capsule,delayed release 1 CAP CAPSULE,DELAYED RELEASE (ENTERIC COATED) Oral 1 Time Daily Indication: MOOD FriJul 21 19:00:00 EST 2023Jul 22 15:46:00 EST 2023 famotidine 20 mg tablet 1 TAB TABLET Ora l 2 Times Daily Indication: GERD FriJul 21 19:00:00 EST 2023Aug 21 01:00:00 EDT 2023 furosemide 20 mg tablet 1 TAB TABLET Ora l 1 Time Daily Indication: diuretic FriJul 21 19:00:00 EST 2023Aug 21 01:00:00 EDT 2023 hydrALAZINE 25 mg tablet 1 TAB TABLET Or al 3 Times Daily Indication: BLOOD PRESSURE FriJul 21 19:00:00 EST 2023Jul 22 03:45:00 EST 2023 isosorbide dinitrate 20 mg tablet 1 TAB TABLET Oral 3 Times Daily Indication: HEART/CHEST PAIN FriJul 21 19:00:00 EST 2023Jul 22 03:45:00 EST 2023 levothyroxine 88 mcg tablet 1 TAB TABLET Oral 1 Time Daily Indication: THYROID FriJul 21 19:00:00 EST 2023Aug 21 01:00:00 EDT 2023 lidocaine 5 % topical patch 1 PATCH ADHE SIVE PATCH, MEDICATED Topical 2 Times Daily Indication: PAIN APPLY 1 PATCH DAILY AND REMOVE AFTER 12 HOURS FriJul 21 19:00:00 EST 2023Aug 21 01:00:00 EDT 2023 losartan 25 mg tablet 1 TAB TABLET Oral 1 Time Daily Indication: BLOOD PRESSURE FriJul 21 19:00:00 EST 2023Aug 21 01:00:00 EDT 2023 Myrbetriq 25 mg tablet,extended release 1 TAB TABLET, EXTENDED RELEASE 24 HR Oral 1 Time Daily Indication: BLADDER FriJul 21 19:00:00 EST 2023Aug 21 01:00:00 EDT 2023 mirtazapine 15 mg tablet 1 TAB TABLET Or al Hour Of Sleep Indication: MOOD FriJul 21 19:00:00 EST 2023Jul 22 15:50:00 EST 2023 polyethylene glycoL 3350 17 gram/dose oral powder 17 GRAM POWDER (GRAM) Oral 1 Time Daily Indication: BOWEL MOVEMENT FriJul 21 19:00:00 EST 2023Aug 21 01:00:00 EDT 2023 PreserVision Lutein 226 mg-90 mg-0.8 mg-5 mg capsule 1 CAP CAPSULE Oral 1 Time Daily Indication: supplement FriJul 21 19:00:00 EST 2023Aug 21 01:00:00 EDT 2023 spironolactone 25 mg tablet 1/2 TAB TABL ET Oral 1 Time Daily Indication: HEART FAILURE 1/2 TAB=12.5MG FriJul 21 19:00:00 EST 2023Aug 21 01:00:00 EDT 2023 timoloL maleate 0.5 % eye drops 1 DROP DROPS Both Eyes 2 Times Daily Indication: GLAUCOMA FriJul 21 19:00:00 EST 2023Aug 21 01:00:00 EDT 2023 Problems Active Concerns * Chronic diastolic (congestive) heart failure* Code: * Start Date: FriJul 21 00:00:00 EST 2023 * End Date: * Text: * Left bundle-branch block, unspecified* Code: * Start Date: FriJul 21 00:00:00 EST 2023 * End Date: * Text: * Hyperlipidemia, unspecified* Code: * Start Date: FriJul 21 00:00:00 EST 2023 * End Date: * Text: * Gastro-esophageal reflux disease without esophagitis* Code: * Start Date: FriJul 21 00:00:00 EST 2023 * End Date: * Text: * Unspecified asthma, uncomplicated* Code: * Start Date: FriJul 21 00:00:00 EST 2023 * End Date: * Text: * Unspecified osteoarthritis, unspecified site* Code: * Start Date: FriJul 21 00:00:00 EST 2023 * End Date: * Text: * Presence of other bone and tendon implants* Code: * Start Date: FriJul 21 00:00:00 EST 2023 * End Date: * Text: * Cardiogenic shock* Code: * Start Date: FriJul 21 00:00:00 EST 2023 * End Date: * Text: * Coronary angioplasty status* Code: * Start Date: FriJul 21 00:00:00 EST 2023 * End Date: * Text: * Hypothyroidism, unspecified* Code: * Start Date: FriJul 21 00:00:00 EST 2023 * End Date: * Text: * Takotsubo syndrome* Code: * Start Date: FriJul 21 00:00:00 2023 * End Date: * Text: * Acute and subacute hepatic failure without coma* Code: * Start Date: FriJul 21 00:00:00 EST 2023 * End Date: * Text: * Acute kidney failure, unspecified* Code: * Start Date: FriJul 21 00:00:00 EST 2023 * End Date: * Text: * Non-ST elevation (NSTEMI) myocardial infarction* Code: * Start Date: FriJul 21 00:00:00 2023 * End Date: * Text: * Acute on chronic diastolic (congestive) heart failure* Code: * Start Date: FriJul 21 00:00:00 EST 2023 * End Date: * Text: * Unspecified fracture of upper end of right tibia, subsequent encounter for closed fracture with routine healing* Code: * Start Date: FriJul 21 00:00:00 EST 2023 * End Date: * Text: * Unspecified fracture of shaft of right fibula, subsequent encounter for closed fracture with routine healing* Code: * Start Date: FriJul 21 00:00:00 EST 2023 * End Date: * Text: * Insomnia, unspecified* Code: * Start Date: FriJul 21 00:00:00 EST 2023 * End Date: * Text: * Anxiety disorder, unspecified* Code: * Start Date: FriJul 21 00:00:00 EST 2023 * End Date: * Text: * Depression, unspecified* Code: * Start Date: FriJul 21 00:00:00 EST 2023 * End Date: * Text: * Overactive bladder* Code: * Start Date: FriJul 21 00:00:00 2023 * End Date: * Text: * 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* Code: * Start Date: FriJul 21 00:00:00 EST 2023 * End Date: * Text: * Wedge compression fracture of second thoracic vertebra, subsequent encounter for fracture with routine healing* Code: * Start Date: FriJul 21 00:00:00 EST 2023 * End Date: * Text: * Stable burst fracture of second lumbar vertebra, subsequent encounter for fracture with routine healing* Code: * Start Date: FriJul 21 00:00:00 2023 * End Date: * Text: * Acute systolic (congestive) heart failure* Code: * Start Date: FriJul 21 00:00:00 2023 * End Date: * Text: * Pleural effusion, not elsewhere classified* Code: * Start Date: FriJul 21 00:00:00 EST 2023 * End Date: * Text: * Postprocedural hypotension* Code: * Start Date: FriJul 21 00:00:00 2023 * End Date: * Text: * Fall on same level, unspecified, subsequent encounter* Code: * Start Date: FriJul 21 00:00:00 2023 * End Date: * Text: * Hypertensive heart disease with heart failure* Code: * Start Date: FriJul 21 00:00:00 EST 2023 * End Date: * Text: * exterminator (current) use of aspirin* Code: * Start Date: FriJul 21 00:00:00 EST 2023 * End Date: * Text: * Anemia, unspecified* Code: * Start Date: FriJul 21 00:00:00 EST 2023 * End Date: * Text: Reason for Referral Past Medical History Resolved Concerns * Problem Hypotension, unspecified* Code: * Start Date: FriJul 21 00:00:00 EST 2023 * End Date: FriJul 23 00:00:00 EST 2023 * Problem Encounter for adjustment and management of vascular access device* Code: * Start Date: FriJul 21 00:00:00 EST 2023 * End Date: FriJul 23 00:00:00 EST 2023
--- OUTSIDE RECORDS SUMMARY | 2024-09-29 15:21 | XMS_ITS | Clinical Summary ---
Author Organization [facility] Address [address] [place] [address] Care Team Providers Care Overhead Worker Name Role Phone Unavailable Primary Care Provider Unavailabl e Allergies Active Allergy Reactions Criticality Noted Date [...] the rectum 3 Active vit A,C and K-javchy-ckiapou s (Ocuvite with Lutein) 300 mcg-200 mg-27 [...] CDT): #HFrEF - Follows with Dr. Wolfe ([facility]) - Most recent TTE: 07/11/23, LVEF [...] 2-4 weeks fo rdischarge Discharge infom from [facility] cardiology provided as below Outpatient Follow-Up [...] the respective cardiology consult team listed on [facility] OR, from Friday-Friday, 7:30 am - 4:30 pm, you may reach the Cardiology Consult Line at . 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 Peak around 2 - Monitor urine output, gentle IVF hydration - Follow BMP daily Closed fracture of proximal end of right tibia, unspecified fracture morphology, initial encounter 07/08/2023 Fracture of right tibia and fibula 07/08/2023 Assessment & Plan (07/08/2023 3:26 PM [facility]): - Orthopedics consult - Splinted in ED - s/p OR 07/08 for IMN right tibia - Ancef x 24h post op - WBAT RLE - Pain control - PT/OT Syncope 07/08/2023 Assessment & Plan (07/11/2023 7:43 AM [facility]): - Frequent falls recently reported by patient's daughter - Telemetry monitoring - EKG with left BBB (known history) - See shock below Delirium 07/08/2023 Assessment & Plan (07/13/2023 5:19 PM [facility]): - Delirium precautions - Ramelteon HS Anxiety 07/08/2023 Assessment & Plan (11/29/2023 1:58 PM CDT): #Panic attacks - Intermittent 1L 20- 25min of O2 at home about 1x/week when feels anxious - continue home bupropion and duloxetine Assessment & Plan (07/15/2023 6:25 AM [facility]): - Continue home duloxetine, bupropion, mirtazapine - Holding home Xanax - Atarax daily PRN Depression 07/08/2023 Assessment & Plan (07/08/2023 11:56 AM [facility]): SEE ANXIETY Overactive bladder 07/08/2023 Assessment & Plan (07/13/2023 5:20 PM [facility]): - Continue home Myrbetriq (temporarily held) Acute pain due to trauma 07/08/2023 Assessment & Plan (12/02/2023 4:40 PM CDT): - Tylenol 1000mg Q6H - Oxycodone 5mg Q4H PRN - Robaxin 500mg TID PRN Assessment & Plan (07/14/2023 5:41 AM [facility]): - tylenol 1000 mg q6h PRN - [...] 12/04 Assessment & Plan (07/15/2023 6:27 AM [facility]): - 07/08: Pending OR with orthopedics - [...] 023 Assessment & Plan (07/15/2023 6:26 AM [facility]): - NSGY consult - Non operative management -TLSO when OOB - Still need upright XR in TLSO when able, call NSGY to review - Q4H neuro checks - Outpatient follow up in 6 weeks with NSGY Nerve compression 04/30/2022 History of 2019 novel coronavirus disease (COVID -19) 02/26/2022 Right wrist drop 01/02/2022 Overview (01/02/2022): Added automatically from request for surgery [id number] Injury of right posterior interosseous nerve Overview (01/02/2022): Added automatically from request for surgery [id number] Radial nerve palsy, 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 Does not manage her own medications - PT/OT Assessment & Plan (08/02/2021 1:56 PM CDT): Mechanical fall CT head and neck negative advil prn for headache w/ food F/u prn Arthritis of knee, left 02/27/2021 Elevated d-dimer 11/13/2020 Left bundle branch block (LB BB) determined by electrocardiography 11/13/2020 Medicare annual wellness visit, subsequent 03/22 Assessment & Plan (03/22/2019 11:00 AM [facility]): Self assessment detail includes: No current home safety or functional concerns at this time per assessment scales. Hearing and vision intact. Admits to use smoke and carbon monoxide alarms. The fall risk is minimal. The cognitive screening was negative for dementia, depression anxiety both appear to be stable on current medication. Pt has a living will and durable power of city attorney in place. In regard to [...] 03/22/2019 Assessment & Plan (03/22/2019 10:58 AM [facility]): Decline urologist consultation this point time, stress [...] 08/27/2017 Assessment & Plan (03/22/2019 10:52 AM [facility]): Cnt. To see pain management, , for pain management. Cnt. With Cymbalta as prior advised. Multiple-type hyperlipidemia 02/14/2016 Overview (08/23/2016): MIXED HYPERLIPIDEMIA Assessment & Plan (11/29/2023 2:01 PM CDT): - continue home atorvastatin Assessment & Plan (03/22/2019 10:56 AM [facility]): Stable with recent labs indicated total cholesterol 172, triglycerides 125, LDL 94, HDL 53. Cnt. Heart healthy diet, mild daily exercise. ASA discussed, but deferred given risks vs benefit. Hypothyroid 02/14/2016 Overview (08/23/2016): HYPOTHYROIDISM NOS Assessment & Plan (11/29/2023 1:59 PM CDT): - continue home synthroid Assessment & Plan (07/08/2023 12:06 PM [facility]): - Continue Synthroid Generalized osteoarthritis 10/02/2013 Overview (08/23/2016): GENERAL OSTEOARTHROSIS Gastroesophageal reflux disease 10/02/2013 Overview (08/23/2016): ESOPHAGEAL REFLUX Assessment & Plan (11/29/2023 2:01 PM CDT): - continue home pepcid Age-related osteoporosis with current pathologic al fracture 10/02/2013 Overview (08/23/2016): OSTEOPOROSIS NOS Normocytic anemia Assessment & Plan (03/22/2019 10:52 AM [facility]): Anemia secondary to femur fracture in June [...] 12/06/19 Assessment & Plan (06/23/2017 2:21 PM [facility]): Recommended patient to continue to increase heart healthy diet with adequate fruits, vegetables, and plenty of water along with mild-moderate daily exercise as tolerated. Pleurisy 06/23/2017 09/08/2017 Assessment & Plan (06/23/2017 2:23 PM [facility]): Recommended Tescecilia De La Cruz for cough suppression to take 1-2 tabs t.i.d. p.r.n. additionally I advised her she can take plain naproxen only on a p.r.n. basis or Advil she cannot take both. Follow-up in office in 4 days is recommended Acute bronchitis due to othe r specified organisms 06/23/2017 09/08/2017 Assessment & Plan (06/23/2017 2:22 PM [facility]): Recommended Levaquin 500 mg once daily for 10 day course considering her treatment failure with 3 courses of zithromax to which I also recommended her to go ahead and get a chest x-ray done just to ensure there is no concern of pneumonia considering her history of COPD and smoking. Close follow-up outpatient also treating her with tapering corticosteroids over course of 10 days, increased fluids, Mucinex gbco-arl-sqmynro for daytime cough and Tessalon Perles for [...] NEC Assessment & Plan (06/23/2017 2:23 PM [facility]): Possible COPD exacerbation due to acute bronchitis. Please refer to acute bronchitis plan for management of acute respiratory tract infection Controlled type 2 diabetes m arelyitus without complication 05/08/2012 03/10/2017 Overview (08/23/2016): Diabetes Mellitus Type 2, Uncomplicated Pneumonia of left lower lobe due to infectious organism 10/05/2018 Encounters Date Type Department Care Team Description 09/08/2024 Telephone [facility] Primary Care at [address] [place] [address] Lane Ontiveros MD from Last 3 Months Immunizations Immunization Administration Dates Next Due Influenza, [...] Medical History Date Comments Hx Other Medical 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 Never 11/30/2023 Do you belong to any clubs o r organizations such as latter-day groups, unions, fraternal or athletic groups, or [...] place to sleep or slept in a prison (including now)? No 07/11/2023 Housing Stability Vital Sign Answer Timothy e Recorded In the last 12 months, was t here a time when you were not able to pay the mortgage or rent on time? No 11/30/2023 In the past 12 months, how m any times have you moved where you were living? 0 11/30/2023 At any time in the past 12 m [facility], were you homeless or living in a prison (including now)? No 11/30/2023 Personal Safety Answer Date Recorded Have you ever been in or are you currently in a harmful physical or emotional relationship or is someone making you feel afraid or unsafe? Denies 12/02/2023 Comments No Sex and Gender Information Value Date Recorded Sex Assigned at Not on file Legal Sex Female 11:52 PM [facility] Gender Identity Not on file Sexual Orientation [...] Discontinued 03/04/2016, 03/04/2016, 03/02/2015, Additional history exists Osteoporosis Screening-Bone Density Scan Discontinued 12/09/2022, 03/31/2019, 07/19/2010, Additional history exists Influenza Vaccine Discontinued Pneumococcal vaccine 65+ Discontinued Medical Devices Implanted Type Area Healthcare Technician Device Identifier Shelf Expiration Date Model / Serial / Lot [employer]fg [employer] Chavez Angio-Seal Vip 6fr Closere Device [id number] - [id number] - [id number] Implanted:Qty: 1 on 07/21/2023 by Tc Enriquez MD at [facility] Collagen Left: Common Femoral Artery [employer] Chavez 04/03/2024 [id number] / [id number] / [id number] [employer]/Or tho Trigen [place]-Nail 8.5mm 33cm Tibia Nail Intramedullary Titanium [id number] - [id number] Implanted:Qty: 1 on 07/08/2023 by Emiliano Wagner MD at [facility] Nail Right: Tibia [employer]/ Ortho [id number] 02/29/2032 [id number] / / [id number] [employer]/Or tho 4.5mm 6.5mm Low Profile Internal Capture Femur Screw Bone Trigen [id number] - [id number] Implanted:Qty: 1 on 07/08/2023 by Emiliano Wagner MD at [facility] Screw Right: Tibia [employer]/ Ortho [id number] 08/21/2031 [id number] / / [id number] [employer]/Or tho 4.5mm 60mm Low Profile Internal Capture Femur Screw Bone Trigen [id number] - [id number] Implanted:Qty: 1 on 07/08/2023 by Emiliano Wagner MD at [facility] Screw Right: Tibia [employer]/ Ortho [id number] 06/28/2030 [id number] / / [id number] [employer]/Or tho 4.5mm 40mm Low Profile Internal Capture Femur Screw Bone Trigen [id number] - S0 - [id number] Implanted:Qty: 1 on 07/08/2023 by Emiliano Wagner MD at [facility] Screw Right: Tibia [employer]/ Ortho [id number] 01/15/2032 [id number] / 0 / [id number] [employer]/Or tho 4.5mm 32.5mm Low Profile Internal Capture Femur Screw Bone Trigen [id number] - [id number] Implanted:Qty: 1 on 07/08/2023 by Emiliano Wagner MD at [facility] Screw Right: Tibia [employer]/ Ortho [id number] 05/22/2031 [id number] / / [id number] [employer]/Or tho 4.5mm 25mm Low Profile Internal Capture Femur Screw Bone Trigen [id number] - [id number] Implanted:Qty: 1 on 07/08/2023 by Emiliano Wagner MD at [facility] Screw Right: Tibia [employer]/ Ortho [id number] 08/19/2031 [id number] / / [id number] [employer]/Or tho 5mm 40mm Low Profile Internal Hex Femur Screw Bone Trigen [id number] - S0 - [id number] Implanted:Qty: 1 on 07/08/2023 by Emiliano Wagner MD at [facility] Screw Right: Tibia [employer]/ Ortho [id number] / 0 / 4.5mm Lcp Condylar Plates Implanted:Qty: 1 on 07/10/[address] Iverson MD at [facility] Right: Femur DEPUY Zervant [id number] / / Synthes [id number] 5mm 4.4mm 65mm Cannulated Self Tap Self Drill Lock 4mm Full - [id number] Implanted:Qty: 1 on 07/10/[address] Iverson MD at Alt [id number]|2024-10-01 10:20:00|2024-10-01 10:20:00|XMS_ITS|BKG DAEMON|External Medical Summaries|[id number]|" Encounter Summary Created on: October 01, 2024 Herrera Nieves : 06/17/1992 Sex: Male Author Organization [facility] Address [address] [place], [place] [address] [address] Care Team Providers Care Overhead Worker Name Role Phone Manard, Twan T MD Primary Care Provider [phone] Encounter Details Date Type Department Care Team (Late st Contact Info) Description [facility]/31[facility]2020 [facility] [place] [address] [place] [address] Miguelina Jansen APRN-CAT CRACKER OPERATOR [address] [address] Social History Tobacco Use Types Packs/Day Years Used Date Smoking Tobacco: Former Cigarettes Smokeless Tobacco: Never Alcohol Use Standard Drinks/Week Comments Yes 0 (1 standard drink = 0.6 oz pur e alcohol) Sex and Gender Information Value Date Recorded Sex Assigned at Not on file Legal Sex Male 5:23 PM [facility] Gender Identity Not on file Sexual Orientation Not on file documented as of this encounter Patient Instructions * Patient Instructions* Kayla Fiore - 03/31/2020 11:14 AM [facility] Pt call requesting a Covid test referral. He can be contacted at [phone]. [facility] documented in this encounter Plan of Treatment Not on file documented as of this encounter Visit Diagnoses Not on filedocumented in this encounter Additional Health Concerns Infection Onset Date Last Indicated Resolved Time COVID-19 Under Investigation 04/03/2020 04/04/2020 04/06/2020 7:33 AM [facility] COVID-19 Confirmed 04/04/2020 04/04/2020 0 4:36 AM [facility] documented as of this encounter Care Teams Overhead Worker Relationship Specialty Start Date End Date Twan Leggett MD PCP - General 01/09/16 documented as of this encounter "
--- OUTSIDE RECORDS SUMMARY | 2024-09-29 15:21 | XMS_ITS | Encounter Summary ---
Author Organization [facility] Address [address] [place] [address] Phone Care Team Providers Care Application Support Manager Name Role Phone Lane Ontiveros MD Primary Care Provider Encounter Details Date Type Department Care Team (Late st Contact Info) Description 04/25/2023 Nursing Facility [facility] [address] [place] [phone] Sancho Sampson, PAC [address] [place] [address] [id number] Social History Tobacco Use Types Packs/Day Years Used Date Smoking Tobacco: Never Assessed Comments Unknown Sex and Gender Information Value Date Recorded Sex Assigned at Not on file Legal Sex Female 5:27 PM CDT Gender Identity Not on file Sexual Orientation Not on file documented as of this encounter Progress Notes * Sancho Sampson, TO[place]IE - 04/25/2023 11:56 AM CST [facility] PROGRESS NOTE Maria Ines Donovans is a 88 y.o. female at [facility] for rehabilitation. Prior to coming to rehabilitation facility patient was hospitalized at [facility] from04/11/2023 through 04/15/2023 for lumbar compression fracture which was treated conservatively. Subjective: Interval History: I am seeing patient for a skilled visit. She is sitting comfortably in her chair. Says that she is feeling â€œfineâ€ . 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 Despite proof reading the note, there may be mistakes and I apologize for those. 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
--- OUTSIDE RECORDS SUMMARY | 2024-09-29 15:21 | XMS_ITS ---
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
[2024-09-29 15:44] LABS: Add Urine Microscopic? YES; Appearance Urine Clear (Clear); Bilirubin Urine Negative (Negative); Blood Urine Negative (Negative); Color Urine Light Yellow (Yellow); Glucose Urine UA Negative (Negative); Ketones Urine Negative (Negative); Leukocyte Esterase Ur Trace LEU/UL (Negative); Nitrate Urine Negative (Negative); Protein Urine Negative (Negative); Specific Grav Ur <= 1.005 (1.010-1.020); Urobilinogen Urine 0.2 mg/dL (0.2-1.0)
[2024-09-29 15:49] LABS: RBC Urine None seen /hpf (0-2); WBC Urine 0-5 /hpf (0-3)
[2024-09-29 15:50] LABS: Bacteria Urine Trace /hpf; Squamous Epithelial Cell Urine Few /hpf (Few)
== END 2024-09-29 15:15 | disposition home or self-care (01) ==
LOC: CHSLAB 15:18
PROVIDERS: PCP Family Medicine; Visit Provider Family Medicine
DX: N39.0 Urinary tract infection, site not specified (principal)
CPT/HCPCS: 81001